=== PATIENT | male | born 1940 | race Caucasian/White ===

== ENCOUNTER 2019-09-15 07:49 | Inpatient (IN) | payer BC ==
[2019-09-14] MEDS: IPRATROPIUM/ALBUTEROL INHALER IH SCH (23:55)
[~2019-09-15] VITALS: Ht 188 cm; Wt 158.3 kg
--- NOTE | 2019-09-15 07:50 | NUR ---
PT BIBRA FROM BOARD AND CARE FOR NOTED O2 DESATURATION X TODAY. PT ARRIVED ON HIGH FLOW O2. TRACH, GOWNED AND PLACED ON MONITOR. AWAITING MD LAYNE.
--- NOTE | 2019-09-15 08:06 | NUR ---
IV LINE STARTED BLOOD DRAWN AND SENT TO LAB.
--- NOTE | 2019-09-15 08:10 | NUR ---
DR GOLDMAN AT BEDSIDE FOR EVAL.
--- NOTE | 2019-09-15 08:44 | NUR ---
Ellyn mclain in [facility] - 09/15/19 at [address] GOLDMAN AT [facility] FOR
[2019-09-15 08:50] LABS: BASOPHILS # (AUTO) 0.1 /CMM (0.0-0.2); BASOPHILS % (AUTO) 0.6 % (0.0-2.0); EOSINOPHILS % (AUTO) 16.3 % (0.0-6.0); HEMATOCRIT 32 % (39-51); HEMOGLOBIN 9.7 g/dL (13.5-17.5); LYMPHOCYTES # (AUTO) 3.4 /CMM (0.8-4.8); LYMPHOCYTES % (AUTO) 26.4 % (20.0-44.0); MEAN CORPUSCULAR HGB CONC 31 g/dl (31.0-36.0); MEAN CORPUSCULAR VOLUME 99 fL (80-96); MONOCYTES % (AUTO) 7.9 % (2.0-12.0); NEUTROPHILS # (AUTO) 6.3 /CMM (1.8-8.9); NEUTROPHILS % (AUTO) 48.8 % (43.0-81.0); PLATELET COUNT (AUTO) 322 /CMM (150-450); RED BLOOD CELL COUNT(AUTO) 3.22 MIL/uL (4.5-6.0); WHITE BLOOD COUNT (AUTO) 12.8 K/uL (4.3-11.0)
[2019-09-15 09:07] LABS: ALANINE AMINOTRANSFERASE 12 U/L (12-78); ALBUMIN 2.5 g/dL (3.4-5.0); ALKALINE PHOSPHATASE 83 U/L (46-116); ASPARTATE AMINOTRANSFERASE 16 U/L (15-37); BILIRUBIN,DIRECT 0.1 mg/dL (0.0-0.2); BILIRUBIN,TOTAL 0.4 mg/dL (0.2-1.0); CALCIUM, SERUM 8.6 mg/dL (8.5-10.1); CARBON DIOXIDE 36 mmol/L (21-32); CHLORIDE 104 mmol/L (98-107); CREATININE 4.9 mg/dL (0.6-1.3); POTASSIUM 4.8 mmol/L (3.5-5.1); SODIUM SERUM 147 mmol/L (136-145); TOTAL PROTEIN, SERUM 7.6 g/dL (6.4-8.2)
[2019-09-15 09:09] LABS: GLUCOSE 36 mg/dL (74-106)
[2019-09-15] MEDS ORDERED: DEXTROSE 50%-WATER 50 ML DISP.SYRIN ONE ×2 (09:11→10:19)
[2019-09-15 09:15] LABS: ABG BASE EXCESS 5.7 mmol/L; ABG OXYGEN SATURATION 96.9 % (92.0-98.5); ABG PCO2 89.1 mmHg (35.0-45.0); ABG PH 7.221 (7.350-7.450); ABG PO2 121.4 mmHg (75.0-100.0); AaDO2 61.3 mmHg; COHb 1.1 % (0.5-1.5); MetHb 0.3 % (0.0-1.5); O2Hb 95.5 % (94.0-97.0); SITE, ABG Right Radial; VENT MODE, BG AC 16 550 40% +8
[2019-09-15 09:16] LABS: UREA NITROGEN, BLOOD 119 mg/dL (7-18)
[2019-09-15] MEDS ORDERED: DEXTROSE 50%-WATER 50 ML DISP.SYRIN IV ONE ×2 (09:30→10:30)
--- NOTE | 2019-09-15 09:31 | NUR ---
RT NOTE RECEIVED PT BEING BAGGED BY PARAMEDICS. PT HAS A PORTEX BIVONA AIRE [address] CU[address]ED[address] CUFF INFLATED. TRACH TUBE MIDLINE AND SECURE. VENTILATOR SETTINGS ENDORSED BY PARAMEDICS AC 16 550 40% +8. ALARMS SET PER PROTOCOL AND AUDIBLE. VENT PLUGGED IN TO RED OUTLET. NO DISTRESS NOTED AT MOMENT. Addendum: 09/15/19 at 0934 by JOAQUIN JIMENEZ RT Amended: Links added.
[2019-09-15 09:35] LABS: BAND % (MANUAL) 1 % (0.0-5.0); EOSINOPHILS % (MANUAL) 17 % (0-4); LYMPHOCYTES % (MANUAL) 17 % (16-48); MONOCYTES % (MANUAL) 8 % (0-11.0); NEUTROPHILS % (MANUAL) 57 (42-76)
--- NOTE | 2019-09-15 10:17 | NUR ---
PANEL ON-CALL PAGED
[2019-09-15 10:32] LABS: APPEARANCE,URINE Slightly Cloudy (CLEAR); BILIRUBIN,URINE Negative (NEGATIVE); BLOOD, URINE Moderate Ery/uL (NEGATIVE); COLOR,URINE Yellow (YELLOW); KETONES,URINE Negative (NEGATIVE); LEUKOCYTE ESTERASE ,URINE Moderate (NEGATIVE); NITRITE, URINE Negative (NEGATIVE); PROTEIN,URINE 100 mg/dl (NEGATIVE); UGLUCOSE Negative (NEGATIVE); UROBILINOGEN,URINE 0.2 EU/dL (0.2)
[2019-09-15 10:33] LABS: BACTERIA,URINE Moderate /HPF (None Seen); SQUAMOUS EPITHELIAL CELL,UR Few /HPF (None Seen)
--- NOTE | 2019-09-15 10:42 | NUR ---
CALLED NURSING SUP FOR [facility] BED.
--- NOTE | 2019-09-15 11:26 | NUR ---
CALLED 3 TIMES TO GIVE REPORT. PLACED ONM LONG HOLD.
[2019-09-15 11:31] LABS: C-REACTIVE PROTEIN 14.1 mg/dL (0.0-0.9)
--- NOTE | 2019-09-15 11:51 | NUR ---
TRANSPORTED TO [facility]. BEDSIDE REPORT GIVEN TO HALLEY BURTON.
[2019-09-15 12:00] VITALS: BP 119/63
--- NOTE | 2019-09-15 12:00 | NUR ---
ELECTRONIC TRAIN CONTROL TECHNICIAN NOTES RECEIVED THE PATIENT FROM ER WITH RIGHT AC IV 18 PATENT. PATIENT IS A/OX 4 WITH DELAYED VERBAL COMMUNICATION DUE TO SOB. NO SOB OR DISCOMFORT NOTED AT THIS TIME. VITALS ARE WNL. PATIENT HAS GTUBE FLUSHED WELL NO RESIDUAL NOTED. WILL FOLLOW UP WITH ORDERS.
[2019-09-15] MEDS ORDERED: IV D5/ 0.9% NACL 1,000 ML IV PRN (12:30)
[2019-09-15] MEDS ORDERED: MAGNESIUM HYDROXIDE 30 ML UDC PO PRN (14:00)
[2019-09-15] MEDS ORDERED: Z GUARD REMEDY 2 OZ OINT TP PRN (14:00)
[2019-09-15] MEDS ORDERED: *INSULIN REGULAR(HUMULIN R)HUM 100 UNIT/ML VIAL SQ PRN (14:00)
[2019-09-15] MEDS ORDERED: DEXTROSE 50%-WATER 50 ML DISP.SYRIN IV PRN (14:00)
[2019-09-15] MEDS ORDERED: ONDANSETRON HCL/PF 4 MG/2 ML VIAL IVP PRN (14:00)
[2019-09-15] MEDS ORDERED: MAG HYDROX/AL HYDROX/SIMETH 30 ML UDC PO PRN (14:00)
--- NOTE | 2019-09-15 14:41 | NUR ---
LAUNDRY AID NOTES CALLED DAUGHTER ANNIE IRAHETA ABOUT PATIENTS ALLERGY AND CODE STATUES. PER DAUGHTER PATIENT HAS NO ALLERGIES AND WANT DNR CODE STATUES.
[2019-09-15] MEDS: HEPARIN SODIUM, PORCINE 5000 UNITS/1 ML VIAL SQ SCH ×3 (15:00→22:13)
[2019-09-15] MEDS: IV D5/0.45 NACL 1,000 ML IV PRN (15:25)
[2019-09-15] MEDS: HYDROXYCHLOROQUINE 200 MG TABLET PO SCH ×2 (15:29→21:26)
--- NOTE | 2019-09-15 15:56 | NUR ---
AIRPORT ENGINEER NOTES HEPARIN NOT ADMINISTRATED PATIENT REFUSED MED STATED THAT HE IS GOING TO BLEED. MEDICATION WAS DRAWN AND WASTED IN MED BIN.
[2019-09-15 16:00] VITALS: BP 121/59
[2019-09-15] MEDS ORDERED: CEFTRIAXONE 1 G in IV D5W 50 ML IV SCH (16:00)
[2019-09-15] MEDS: AZITHROMYCIN 500 MG in IV D5W 250 ML IV SCH (18:03)
[2019-09-15] MEDS: BLOOD SUGAR DIAGNOSTIC 1 EACH STRIP VI SCH ×2 (18:03→21:27)
[2019-09-15] MEDS: IPRATROPIUM/ALBUTEROL INHALER IH SCH (18:06)
--- NOTE | 2019-09-15 19:37 | NUR ---
AUTOMOTIVE ELECTRICAL FITTER NOTES PATIENT IN BED RESTING COMFORTABLY. NO SOB OR DISCOMFORT NOTED. ALL NEEDS ATTENDED. LAST GLUCOSE LEVEL 71 NO INSULIN GIVEN. NO RESIDUAL NOTED AT THE GT SIDE. BED AT THE LOWEST POSITION LOCKED. CALL LIGHT WITHIN REACH. ENDORSED TO SCENIC ARTIST NURSE FOR REESE.
--- NOTE | 2019-09-15 19:45 | NUR ---
RN OPENING NOTES RECEIVED HAND OFF REPORT FROM [facility]. FOUND Pt ASLEEP, RESTING IN BED. Pt IS A/OX4, ABLE TO SPEAK & MOUTH WORDS, & ABLE TO MAKE NEEDS KNOWN. Pt IS A VENT/TRACH Pt; VENT SETTINGS: AC 18, TV 600, FIO2 40%, PEEP 5. PORTEX BIVONA AIRE 9. ON TELE MONITOR, TELE READING: AFIB SB-SR 40-33. DAILEY CATHETER IN PLACE DRAINING WELL. WILL START Pt ON GTF GLUCERNA @30ML/HR. IV ACCESS ON RAC #18G, IVF D5 1/2NS @75ML/HR. SAFETY MEASURES IN PLACE. BED LOW, LOCKED, HOB ELEVATED, SIDE RAILS UP, CALL LIGHT AND BEDSIDE TABLE WITHIN REACH. WILL CONTINUE TO MONITOR Pt's CONDITION AND SAFETY THROUGHOUT THE NIGHT.
[2019-09-15 20:00] VITALS: BP 118/60
--- NOTE | 2019-09-15 20:14 | NUR ---
RT NOTES PT RECEIVED TRACHED ON [facility] VENT ON CHARTED SETTINGS. NO SIGNS OF SOB NOTED. AIRWAY PATENT AND SECURED. PERSONAL PROPERTY APPRAISER DONE. PT SUCTIONED. ALARMS SET AND AUDIBLE. AMBUBAG AT BEDSIDE. VENT PLUGGED TO RED OUTLET. WILL CONT TO MONITOR. Addendum: 09/15/19 at 2138 by EMBER YIN RT Amended: Links added.
[2019-09-15] MEDS ORDERED: CEFEPIME 1 GM in IV NS 0.9% 50 ML IV SCH (20:30)
[2019-09-15] MEDS ORDERED: CEFEPIME 1 GM in IV D5W 50 ML IV SCH (20:30)
[2019-09-15] MEDS ORDERED: FEE PK DOSING 1 MIN EA MC ONE (20:43)
[2019-09-15] MEDS ORDERED: VANCOMYCIN 1.5 GM in IV D5W 500 ML IV SCH (21:00)
[2019-09-15] MEDS: CEFEPIME 2 GM in IV D5W 100 ML IV SCH (21:26)
--- NOTE | 2019-09-15 22:30 | NUR ---
RN NOTES HS ACCUCHECK BG 70. NO INSULIN COVERAGE NEEDED AT THIS TIME.
--- NOTE | 2019-09-15 23:00 | NUR ---
RN NOTES Pt IS ALERT AND ABLE TO ANSWER QUESTIONS. INFORMED Pt THAT HEPARIN IS SCHEDULED Q8HR. Pt ONLY AGREED TO GETTING HEPARIN FOR TONIGHT ONLY, CONCERNED THAT TOO MUCH HEPARIN WILL MAKE HIM BLEED, REFUSED THE 0700 SCHEDULED DOSE. WILL ENDORSE TO DAYSHIFT RN OF Pt's WISHES. PERHAPS RECOMMEND TO CHANGE FREQUENCY TO Q12H INSTEAD OF Q8H.
[2019-09-16] VITALS (8 sets, daily range): BP systolic 98–133; BP diastolic 39–72
[2019-09-16] MEDS: GLUCERNA 1.2 1,000 ML BOTTLE NG PRN (00:02)
--- NOTE | 2019-09-16 03:39 | NUR ---
RN NOTES PER RT REQUEST TO CHANGE IH COMBIVENT RESPIMAT INHALER TO 0730 & 1330 INSTEAD.
[2019-09-16 06:37] LABS: BASOPHILS # (AUTO) 0.1 /CMM (0.0-0.2); BASOPHILS % (AUTO) 1.4 % (0.0-2.0); EOSINOPHILS % (AUTO) 17.5 % (0.0-6.0); HEMATOCRIT 27 % (39-51); HEMOGLOBIN 8.3 g/dL (13.5-17.5); LYMPHOCYTES # (AUTO) 1.3 /CMM (0.8-4.8); LYMPHOCYTES % (AUTO) 13.2 % (20.0-44.0); MEAN CORPUSCULAR HGB CONC 31 g/dl (31.0-36.0); MEAN CORPUSCULAR VOLUME 97 fL (80-96); MONOCYTES % (AUTO) 10.2 % (2.0-12.0); NEUTROPHILS # (AUTO) 5.5 /CMM (1.8-8.9); NEUTROPHILS % (AUTO) 57.7 % (43.0-81.0); PLATELET COUNT (AUTO) 273 /CMM (150-450); RED BLOOD CELL COUNT(AUTO) 2.73 MIL/uL (4.5-6.0); WHITE BLOOD COUNT (AUTO) 9.4 K/uL (4.3-11.0)
--- NOTE | 2019-09-16 06:44 | NUR ---
RN CLOSING NOTES NO SIGNIFICANT CHANGES IN Pt' CONDITION. Pt IS RESTING COMFORTABLY IN BED, WITH NO S/S OF ACUTE DISTRESS OR SOB NOTED DURING THE NIGHT. ALL NEEDS MET AND ATTENDED TO. SAFETY MEASURES IN PLACE. TELE READING AFIB/SR 80s. ON GTF GLUCERNA @30ML/HR. RESIDUAL 5ML. DAILEY CATHETER IN PLACE AND DRAINING WELL. WILL ENDORSE TO DAYSHIFT RN FOR Pt's REESE.
--- NOTE | 2019-09-16 06:47 | NUR ---
RN NOTES Pt REFUSED 0700 HEPARIN DOSE. WANTS TO REDUCE FREQUENCY. Pt IS WORRIED ABOUT BLEEDING TOO MUCH.
[2019-09-16] MEDS: HEPARIN SODIUM, PORCINE 5000 UNITS/1 ML VIAL SQ SCH ×3 (06:49→23:35)
[2019-09-16 07:04] LABS: CREATINE KINASE, TOTAL 38 U/L (39-308)
[2019-09-16] MEDS: BLOOD SUGAR DIAGNOSTIC 1 EACH STRIP VI SCH ×4 (07:04→21:34)
[2019-09-16 07:19] LABS: ALANINE AMINOTRANSFERASE 10 U/L (12-78); ALBUMIN 2.1 g/dL (3.4-5.0); ALKALINE PHOSPHATASE 65 U/L (46-116); ASPARTATE AMINOTRANSFERASE 12 U/L (15-37); BILIRUBIN,DIRECT 0.2 mg/dL (0.0-0.2); BILIRUBIN,TOTAL 0.5 mg/dL (0.2-1.0); CALCIUM, SERUM 8.6 mg/dL (8.5-10.1); CARBON DIOXIDE 34 mmol/L (21-32); CHLORIDE 103 mmol/L (98-107); CREATININE 4.9 mg/dL (0.6-1.3); GLUCOSE 89 mg/dL (74-106); POTASSIUM 4.8 mmol/L (3.5-5.1); SODIUM SERUM 143 mmol/L (136-145); TOTAL PROTEIN, SERUM 6.5 g/dL (6.4-8.2)
[2019-09-16 07:24] LABS: UREA NITROGEN, BLOOD 111 mg/dL (7-18)
[2019-09-16 07:25] LABS: PHOSPHORUS 8.2 mg/dL (2.5-4.9)
--- NOTE | 2019-09-16 07:33 | NUR ---
WOUND CARE CONSULT: REVIEWED ADMISSION DOCUMENTATION WITH MD, FLOOR SANDING MACHINE OPERATOR AND NURSING STAFF. PER ADMISSION PHOTOS, PT PRESENTS WITH SACRAL WOUND WHICH EXTENDS TO BILATERAL BUTTOCKS AND IS AT LEAST PARTIAL THICKNESS, RASH/REDNESS TO PERINEUM AND LOWER BUTTOCKS AND DISCOLORATION WITH DRY SCAB TO LOWER LEG, ALL PRESENT ON ADMISSION. RECOMMENDATIONS MADE FOR WOUND CARE AND SKIN PROTECTION DISCUSSED WITH NURSING STAFF, FLOOR SANDING MACHINE OPERATOR AND MD. WILL SEE PRN. MD IN AGREEMENT WITH PLAN OF CARE.
--- NOTE | 2019-09-16 08:00 | NUR ---
Tele/RN - Assessment Patient is alert and oriented x 4, denies pain, on mechanical vent, settings AC18 TV600 AsV402% PEEP5, tele shows A.Fib. GTF Glucerna at 30 ml/hr, tolerating it well, no residual seen, no further hypoglycemia episode. IVF D5 1/2 NS at 75 ml/hr infusing well on the RAC with no complications. Leija catheter in place for sacrum ext to buttocks wound. Seen by wound nurse with treatment recommendations. Labs reviewed, pending Covid-19, critical results BUN 111 and phos 8.[address] Scott with no new order. All needs attended. Continue Zithromax, Vanco and Cefepime IV. Droplet and contact precautions maintained. Will continue with current plan of care.
[2019-09-16] MEDS: IV D5/0.45 NACL 1,000 ML IV PRN (08:03)
[2019-09-16] MEDS: HYDROXYCHLOROQUINE 200 MG TABLET PO SCH ×2 (08:05→16:33)
[2019-09-16] MEDS: CLOTRIMAZOLE 1% 15 GM TUBE TP SCH ×2 (08:14→16:33)
[2019-09-16] MEDS: IPRATROPIUM/ALBUTEROL INHALER IH SCH ×4 (08:14→23:36)
--- NOTE | 2019-09-16 08:54 | NUR ---
SW Consult SW consult called due to pt placement. SW spoke to window caser, Betina, who stated that the pt is from an [facility] and that the window caser will conduct an assessment with the pt regarding his placement needs.
[2019-09-16 10:02] LABS: ABG BASE EXCESS 6.3 mmol/L; ABG OXYGEN SATURATION 95.1 % (92.0-98.5); ABG PCO2 53.2 mmHg (35.0-45.0); ABG PH 7.399 (7.350-7.450); ABG PO2 83.3 mmHg (75.0-100.0); AaDO2 140.7 mmHg; COHb 0.7 % (0.5-1.5); MetHb 0.3 % (0.0-1.5); O2Hb 94.1 % (94.0-97.0); PEEP,BG 5 cm H2O; SITE, ABG Right Radial; VT, ABG 600 mL
[2019-09-16] MEDS: INSULIN REGULAR, HUMAN 100 UNIT/ML 3 ML VIAL SQ PRN ×2 (12:19→17:28)
[2019-09-16] MEDS: AZITHROMYCIN 500 MG in IV D5W 250 ML IV SCH (16:35)
--- NOTE | 2019-09-16 18:25 | NUR ---
Tele/RN - End of shift summary No significant change in condition seen, remain afebrile, tolerating vent settings well, Covid-19 result was negative. Family updated on patient's condition. Will continue with current medical management.
--- NOTE | 2019-09-16 19:30 | NUR ---
home worker notes, Patient in bed awake, alert and oriented x 4, on mechanical vent, tolerating setting well, A.Fib on tele monitor with hr 80s at this time, gt in placed, GTF Glucerna at 30 ml/hr, tolerating it well, with minimal residual, right ac piv line IVF D5 1/2 NS at 75 ml/hr infusing well and pt tolerated well, Leija catheter in place, patency intact, All needs provided, negative for covid, Will continue to monitor closely.
[2019-09-16] MEDS: MICAFUNGIN SODIUM 100 MG in IV NS 0.9% 100 ML IV SCH (20:53)
[2019-09-16] MEDS: CEFEPIME 2 GM in IV D5W 100 ML IV SCH (23:31)
[2019-09-17] VITALS: BP 93/52
[2019-09-17 04:00] VITALS: BP 118/63
[2019-09-17] MEDS: GLUCERNA 1.2 1,000 ML BOTTLE NG PRN (05:25)
[2019-09-17] MEDS: IPRATROPIUM/ALBUTEROL INHALER IH SCH ×3 (05:49→16:58)
[2019-09-17 06:17] LABS: BASOPHILS # (AUTO) 0.1 /CMM (0.0-0.2); BASOPHILS % (AUTO) 0.8 % (0.0-2.0); EOSINOPHILS % (AUTO) 24.7 % (0.0-6.0); HEMATOCRIT 26 % (39-51); HEMOGLOBIN 8.1 g/dL (13.5-17.5); LYMPHOCYTES # (AUTO) 1.5 /CMM (0.8-4.8); LYMPHOCYTES % (AUTO) 15.4 % (20.0-44.0); MEAN CORPUSCULAR HGB CONC 31 g/dl (31.0-36.0); MEAN CORPUSCULAR VOLUME 96 fL (80-96); MONOCYTES # (AUTO) 0.9 /CMM (0.1-1.30); MONOCYTES % (AUTO) 8.7 % (2.0-12.0); NEUTROPHILS % (AUTO) 50.4 % (43.0-81.0); PLATELET COUNT (AUTO) 246 /CMM (150-450); RED BLOOD CELL COUNT(AUTO) 2.68 MIL/uL (4.5-6.0); WHITE BLOOD COUNT (AUTO) 9.9 K/uL (4.3-11.0)
--- NOTE | 2019-09-17 06:18 | NUR ---
concrete sculptor closing notes, Patient in bed awake, alert and oriented x 4, cont on mechanical vent, tolerating setting well, A.Fib on tele monitor with hr 80s-90s during the night, no significant change in condition, right ac piv line IVF D5 1/2 NS at 75 ml/hr infusing well and pt tolerated well, meds due administered as ordered, Leija catheter in place, patency intact, All needs provided, Will endorse continuity of care to oncoming nurse.
[2019-09-17 06:29] LABS: CALCIUM, SERUM 8.8 mg/dL (8.5-10.1); CARBON DIOXIDE 32 mmol/L (21-32); CHLORIDE 102 mmol/L (98-107); CREATININE 4.8 mg/dL (0.6-1.3); GLUCOSE 122 mg/dL (74-106); POTASSIUM 4.5 mmol/L (3.5-5.1); SODIUM SERUM 143 mmol/L (136-145)
[2019-09-17 06:36] LABS: UREA NITROGEN, BLOOD 106 mg/dL (7-18)
[2019-09-17 07:06] LABS: PTH, INTACT 164 pg/mL (15-65)
[2019-09-17 07:33] LABS: BAND % (MANUAL) 1 % (0.0-5.0); EOSINOPHILS % (MANUAL) 24 % (0-4); LYMPHOCYTES % (MANUAL) 16 % (16-48); MONOCYTES % (MANUAL) 5 % (0-11.0); NEUTROPHILS % (MANUAL) 54 (42-76)
[2019-09-17 08:00] VITALS: BP 115/67
--- NOTE | 2019-09-17 08:00 | NUR ---
Tele/RN - Notes Patient is alert and oriented x 4, denies pain, on mechanical vent, settings AC18 TV600 OdT680% PEEP5, tele shows A.Fib A flutter HR 85. GTF Glucerna at 30 ml/hr, tolerating it well, no residual seen, no hypoglycemia noted. RAC H/L intact with no complications. Leija catheter in place for sacrum ext to buttocks wound. Wound tx done as ordered. Turned every two hrs. Continue Mycamine, Vanco and Maxipime IV. Droplet and contact precautions maintained. Will continue with current plan of care.
[2019-09-17] MEDS ORDERED: DEXTROSE 50%-WATER 50 ML DISP.SYRIN IV PRN (08:30)
[2019-09-17] MEDS: HEPARIN SODIUM, PORCINE 5000 UNITS/1 ML VIAL SQ SCH ×3 (08:32→23:00)
[2019-09-17] MEDS: CLOTRIMAZOLE 1% 15 GM TUBE TP SCH ×2 (09:11→16:58)
[2019-09-17 10:07] LABS: *SPE A/G RATIO 0.6 (0.7-1.7); *SPE ALBUMIN 2.2 g/dL (2.9-4.4); *SPE ALPHA-1-GLOBULIN 0.4 g/dL (0.0-0.4); *SPE ALPHA-2-GLOBULIN 0.8 g/dL (0.4-1.0); *SPE BETA GLOBULIN 0.9 g/dL (0.7-1.3); *SPE GLOBULIN, TOTAL 3.4 g/dL (2.2-3.9); *SPE M-SPIKE Not Observed g/dL (Not Observed); *SPEGAMMA GLOBULIN 1.3 g/dL (0.4-1.8)
[2019-09-17] MEDS: MUPIROCIN OINT 2% 22 GM TUBE SCH ×2 (10:53→22:32)
[2019-09-17] MEDS ORDERED: BUMETANIDE INJ 4 MG in IV D5W 24 ML IV ONE (11:00)
[2019-09-17 12:00] VITALS: BP 110/58
[2019-09-17] MEDS ORDERED: DEXTROSE 50%-WATER 50 ML DISP.SYRIN IV SCH (12:00)
[2019-09-17] MEDS ORDERED: INSULIN REGULAR, HUMAN 100 UNIT/ML 3 ML VIAL SQ SCH (12:00)
[2019-09-17] MEDS: BLOOD SUGAR DIAGNOSTIC 1 EACH STRIP IN SCH ×2 (14:07→16:59)
[2019-09-17] MEDS: INSULIN REGULAR, HUMAN 100 UNIT/ML 3 ML VIAL SQ PRN (14:13)
--- NOTE | 2019-09-17 15:47 | NUR ---
HELD HEPARIN SHOT DUE TO TOMORROW'S US THORACENTESIS OF RT LUNG PROCEDURE.
[2019-09-17 16:00] VITALS: BP_SYST 118; BP_SYST 120; BP_DIAS 65
--- NOTE | 2019-09-17 16:39 | NUR ---
TRANSFERRED PT TO 3RD [facility] TELE ROOM [id number] MEDS AND REPORT TO JOSEPHINE GONZALEZ WITH STABLE V/S.
--- NOTE | 2019-09-17 16:43 | NUR ---
Received patient from [facility]. Patient awake a/o x3 , in stable condition with VS within baseline. PAtient trach Portex (, TV 600, FIO2 40 % PPP 5 %. Patient on G-tube feeding , with no residual , rate 65 ml/hr. Pt on TELE monitor SR with PVC . Present with F/C. Patient oriented to room, call light within reach. Will continue to monitor
--- NOTE | 2019-09-17 18:50 | NUR ---
Patient remains stable. Will endorse to next shift for j carlos
--- NOTE | 2019-09-17 19:15 | NUR ---
LEAD SHIPPER OPENING NOTES PATIENT AWAKE AND RESTING IN BED. VENT DEPENDENT, TOLERATING SETTINGS WELL, SPO2 100%. NO S/S OF ACUTE RESPIRATORY DISTRESS AND NO C/O OF PAIN AT THIS TIME. A/OX4. TELE MONITOR READING NSR, HEART RATE 87. IV PRESENT ON RIGHT ACT, SIZE 18, INTACT & PATENT. DAILEY CATH PRESENT, DRAINING WELL, CLEAR YELLOW URINE PRESENT. SAFETY MEASURES IN PLACE. BED LOCKED, ALARM ON, SIDE RAILS X2, CALL LIGHT WITHIN REACH. WILL CONTINUE TO MONITOR.
[2019-09-17 20:00] VITALS: BP 114/64
[2019-09-17] MEDS: MICAFUNGIN SODIUM 100 MG in IV NS 0.9% 100 ML IV SCH (20:27)
[2019-09-17] MEDS: CEFEPIME 2 GM in IV D5W 100 ML IV SCH (22:27)
[2019-09-18] VITALS (7 sets, daily range): BP systolic 122–135; BP diastolic 63–76
[2019-09-18] MEDS: BLOOD SUGAR DIAGNOSTIC 1 EACH STRIP IN SCH ×4 (00:47→18:28)
[2019-09-18] MEDS: IPRATROPIUM/ALBUTEROL INHALER IH SCH ×4 (06:17→18:30)
[2019-09-18 06:18] LABS: BASOPHILS # (AUTO) 0.1 /CMM (0.0-0.2); BASOPHILS % (AUTO) 1.3 % (0.0-2.0); HEMATOCRIT 28 % (39-51); HEMOGLOBIN 8.9 g/dL (13.5-17.5); LYMPHOCYTES # (AUTO) 1.7 /CMM (0.8-4.8); LYMPHOCYTES % (AUTO) 16.1 % (20.0-44.0); MEAN CORPUSCULAR HGB CONC 32 g/dl (31.0-36.0); MEAN CORPUSCULAR VOLUME 96 fL (80-96); MONOCYTES % (AUTO) 9.2 % (2.0-12.0); NEUTROPHILS # (AUTO) 4.8 /CMM (1.8-8.9); NEUTROPHILS % (AUTO) 46.2 % (43.0-81.0); PLATELET COUNT (AUTO) 257 /CMM (150-450); RED BLOOD CELL COUNT(AUTO) 2.93 MIL/uL (4.5-6.0); WHITE BLOOD COUNT (AUTO) 10.4 K/uL (4.3-11.0)
[2019-09-18] MEDS: HEPARIN SODIUM, PORCINE 5000 UNITS/1 ML VIAL SQ SCH ×3 (07:00→22:08)
[2019-09-18 07:01] LABS: CALCIUM, SERUM 9.1 mg/dL (8.5-10.1); CARBON DIOXIDE 32 mmol/L (21-32); CHLORIDE 104 mmol/L (98-107); CREATININE 4.8 mg/dL (0.6-1.3); GLUCOSE 139 mg/dL (74-106); POTASSIUM 4.5 mmol/L (3.5-5.1); SODIUM SERUM 144 mmol/L (136-145)
[2019-09-18 07:02] LABS: EOSINOPHILS % (AUTO) 27.2 % (0.0-6.0)
[2019-09-18 07:05] LABS: UREA NITROGEN, BLOOD 100 mg/dL (7-18)
--- NOTE | 2019-09-18 07:15 | NUR ---
INSTRUMENT TECH OPENING NOTES RECEIVED PT IN BED AWAKE AT THIS TIME WITH HOB ELEVATED. AOX4. PT ON TRACH/MECHANICAL VENT WITH VENT SETTINGS OF AC18 TV600 FiO2 40% PEEP 5. PT ON TELEMETRY ORACLE R12 DEVELOPER SR 86. GLUCERNA 1.2 G-TUBE FEEDING @ 30 ML/HR WITH NO RESIDUAL NOTED. IV ACCESS ON RAC G# 18, DAILEY CATHETER IN PLACE DRAINING TO GRAVITY CLEAR YELLOW URINE OUTPUT. PER LINE DANCER NURSE TERESE, PT's BLISTER ON BUTTOCKS OPENED UP WHEN TAKING OFF MEPILEX. PICTURES TAKEN AND FILED. CONTACT AND DROPLET PRECAUTIONS IN PLACE, SAFETY PRECAUTIONS IN PLACE. BED IN LOWEST LOCKED POSITION, SIDE RAILS UP X 3, CALL LIGHT WITHIN REACH. WILL CONTINUE TO PROVIDE CARE AND MONITOR.
--- NOTE | 2019-09-18 07:44 | NUR ---
BERRY PICKER CLOSING NOTES PATIENT AWAKE IN BED. TOLERATING VENT SETTINGS WELL. NO S/S OF ACUTE RESPIRATORY DISTRESS AND NO C/O OF PAIN AT THIS TIME. A/OX4. TELE MONITOR READING NSR, HEART RATE 86. IV PRESENT ON RIGHT ACT, SIZE 18, INTACT & PATENT, HEP LOCKED. DAILEY CATH PRESENT, DRAINING WELL, CLEAR YELLOW URINE PRESENT. UPON CLEANING PATIENT AND REMOVING MEPILEX, BLISTER ON SACRUM APPEARED TO BE OPEN; CLEANED SKIN WITH NS AND APPLIED NEW MEPILEX. SAFETY MEASURES IN PLACE. BED LOCKED, ALARM ON, SIDE RAILS X2, CALL LIGHT WITHIN REACH. WILL ENDORSE TO DAY SHIFT NURSE PLAN OF CARE.
--- NOTE | 2019-09-18 09:00 | NUR ---
STARTED DOING US THORACENTESIS OF RT LUNG PROCEDURE WITH STABLE V/S- CONSENT HAS BEEN SIGNED.
[2019-09-18 09:01] LABS: EOSINOPHILS % (MANUAL) 26 % (0-4); LYMPHOCYTES % (MANUAL) 16 % (16-48); MONOCYTES % (MANUAL) 11 % (0-11.0); NEUTROPHILS % (MANUAL) 47 (42-76)
[2019-09-18] MEDS: CLOTRIMAZOLE 1% 15 GM TUBE TP SCH ×2 (09:49→17:14)
[2019-09-18] MEDS: MUPIROCIN OINT 2% 22 GM TUBE SCH ×2 (09:49→20:18)
--- NOTE | 2019-09-18 10:00 | NUR ---
COMPLETED US GUIDED THORACENTESIS OF RT LUNG OBTAINING I LITER BROWNISH PLEURAL OUTPUT AND SENT THE PLEURAL FLUID TO THE PATHOLOGY LAB FOR CYTOLOGY TEST ORDERED.PT TOLERATED PROCEDURE WELL AND REMAINS ALERT AND AWAKE DENYING ANY PAIN OR DISTRESS.WILL CONTINUE TO MONITOR.
[2019-09-18] MEDS ORDERED: TAMS-12 GT (14:30)
[2019-09-18] MEDS ORDERED: IPRA3AMP23 IH (14:30)
[2019-09-18] MEDS ORDERED: DILT-4 GT (14:30)
[2019-09-18] MEDS ORDERED: TIOT18CA3 IH (14:30)
[2019-09-18] MEDS ORDERED: ALLO100T25 GT (14:30)
[2019-09-18] MEDS ORDERED: NUTR250L58 GT (14:30)
[2019-09-18] MEDS ORDERED: MULT-447 GT (14:30)
[2019-09-18] MEDS ORDERED: ACET-868 GT (14:30)
[2019-09-18] MEDS ORDERED: ATOR10TA GT (14:30)
[2019-09-18] MEDS ORDERED: LACT10SO GT (14:30)
[2019-09-18] MEDS ORDERED: PANT40SU2 GT (14:30)
[2019-09-18] MEDS ORDERED: LEVO88TA5 GT (14:30)
[2019-09-18] MEDS ORDERED: QUET200T GT (14:30)
[2019-09-18] MEDS ORDERED: LORA-259 GT (14:30)
[2019-09-18] MEDS ORDERED: BUDE0.5A IH (14:30)
[2019-09-18] MEDS ORDERED: METO25TA20 GT (14:30)
[2019-09-18] MEDS ORDERED: FURO80TA85 GT (14:30)
[2019-09-18] MEDS ORDERED: NYST15OI TP (14:30)
[2019-09-18] MEDS ORDERED: ONDA4TAB5 GT (14:30)
[2019-09-18] MEDS ORDERED: INSU100V7 SQ (14:30)
[2019-09-18] MEDS ORDERED: INSU100V39 SQ (14:30)
[2019-09-18] MEDS ORDERED: BISA10SU11 RC (14:30)
[2019-09-18] MEDS ORDERED: SUCR1ORA15 GT (14:30)
[2019-09-18] MEDS ORDERED: GLIP10TA11 GT (14:30)
[2019-09-18] MEDS ORDERED: DOCU50LI GT (14:30)
[2019-09-18] MEDS ORDERED: FLUC100T GT (14:30)
--- NOTE | 2019-09-18 14:41 | NUR ---
BROWN STOCK WASHER/MED RECON HOME MEDICATION/ALLERGY INFORMATION UPDATED. INFORMATION OBTAINED FROM [facility]. PRIMARY RN AWARE.
--- NOTE | 2019-09-18 15:00 | NUR ---
Notified Dr Isabel to do pt's home meds for the second time.
[2019-09-18] MEDS ORDERED: POLYVINYL ALCOHOL 15 ML BOTTLE EACHEYE PRN (16:30)
[2019-09-18] MEDS: INSULIN REGULAR, HUMAN 100 UNIT/ML 3 ML VIAL SQ PRN (18:53)
--- NOTE | 2019-09-18 18:55 | NUR ---
Called Linda,pharmacist for pt's eyedrops artificial tears 2x and is not available in the unit up to this time.
--- NOTE | 2019-09-18 19:14 | NUR ---
LPN MEDICAL ASSISTANT CLOSING NOTES PT IN BED AWAKE AT THIS TIME WITH HOB ELEVATED. AOX4. PT ON TRACH/MECHANICAL VENT AND TOLERATING VENT SETTINGS WELL. PT ON GLUCERNA 1.2 G-TUBE FEEDING @ 30 ML/HR. PT TOLERATED FEEDING WELL WITH NO RESIDUAL NOTED. IV ACCESS ON RAC G#18 INTACT AND PATENT, DAILEY CATHETER INTACT AND IN PLACE DRAINING TO GRAVITY CLEAR YELLOW URINE OUTPUT. SUCTION PERFORMED NEEDED. PT REMAINED STABLE THROUGHOUT SHIFT. WOUND CARE MANAGEMENT AND SKIN CARE PERFORMED. PT REPOSITIONED Q2HRS, PRN AND PER PROTOCOL. SAFETY PRECAUTIONS IN PLACE. BED IN LOWEST LOCKED POSITION, SIDE RAILS UP X 3, CALL LIGHT WITHIN REACH. WILL CONTINUE TO PROVIDE CARE AND MONITOR.
--- NOTE | 2019-09-18 19:30 | NUR ---
CAFETERIA ATTENDANT OPENING NOTE RECEIVED PATIENT WITH POSITIVE MRSA NARES. PATIENT RECEIVED IN BED. PATIENT ON MECHANICAL VENTILATOR, PORTEX #9, SIMV 18, TV 600, FIO2 40, PEEP 5. IN NO RESPIRATORY DISTRESS AT THIS TIME. DENIES PAIN AT THIS TIME. EXTERNAL TELE MONITOR READS SINUS RHYTHM HR 88. IN NO APPARENT DISTRESS. IV ACCESS IN RAC#18 PATENT AND SALINE LOCKED. DAILEY CATHETER IS PRESENT, DRAINING TO GRAVITY, URINE IS YELLOW. GTUBE IS PRESENT, ASPIRATED 10 ML, FLUSHED WITH 200 ML, NO RESISTANCE, TUBE FEEDING IS RUNNING GLUCERNA 1.2 @30ML/HR. BED IS LOW AND LOCKED, HOB ELEVATED IN HIGH FOWLERS, SIDE RAILS UP X3, BED ALARM ON. CALL LIGHT WITHIN REACH. WILL CONTINUE TO MONITOR.
[2019-09-18] MEDS: MICAFUNGIN SODIUM 100 MG in IV NS 0.9% 100 ML IV SCH (20:15)
[2019-09-18] MEDS: DOXYCYCLINE HYCLATE (100 MG) 100 MG TABLET PO SCH (20:21)
[2019-09-18] MEDS: CEFEPIME 2 GM in IV D5W 100 ML IV SCH (22:07)
[2019-09-18] MEDS: GLUCERNA 1.2 1,000 ML BOTTLE NG PRN (22:08)
[2019-09-19] VITALS: BP 127/72
[2019-09-19] MEDS: IPRATROPIUM/ALBUTEROL INHALER IH SCH ×4 (00:16→17:41)
[2019-09-19] MEDS: BLOOD SUGAR DIAGNOSTIC 1 EACH STRIP IN SCH ×4 (00:16→17:41)
[2019-09-19 04:00] VITALS: BP 130/68
--- NOTE | 2019-09-19 05:49 | NUR ---
PATIENT RECEIVED ON TRACH TO VENT WITH SETTINGS OF AC 18, 600 VT, 40%, +5. SUCTIONED FOR MINIMAL, THIN, WHITE SECRETIONS. AMBU BAG AT BEDSIDE. VENT AND PULSE OXIMETER ALARMS AUDIBLE AND VISIBLE. VENT PLUGGED INTO RED OUTLET. NO DISTRESS/SOB NOTED. Addendum: 09/19/19 at 0549 by LUZ MALONE RT Amended: Links added.
[2019-09-19] MEDS: HEPARIN SODIUM, PORCINE 5000 UNITS/1 ML VIAL SQ SCH ×2 (06:09→21:38)
--- NOTE | 2019-09-19 06:56 | NUR ---
SHAMPOO TECHNICIAN CLOSING NOTE PATIENT WITH POSITIVE MRSA NARES. PATIENT IN BED. PATIENT ON MECHANICAL VENTILATOR, PORTEX #9, SIMV 18, TV 600, FIO2 40, PEEP 5. NO RESP DISTRESS NOTED.NO C/O PAIN. EXTERNAL TELE MONITOR READS SINUS RHYTHM HR 91. NO DISTRESS NOTED. IV ACCESS REMAINS IN RAC#18 PATENT AND SALINE LOCKED. DAILEY CATHETER IS MAINTAINED, DRAINING TO GRAVITY, URINE IS YELLOW. GTUBE IS MAINTAINED, DRESSING CHANGED, RUNNING GLUCERNA 1.2 @30ML/HR. BED REMAINS LOW AND LOCKED, HOB ELEVATED IN HIGH FOWLERS, SIDE RAILS UP X3, BED ALARM ON. CALL LIGHT WITHIN REACH. WILL ENDORSE TO NEXT SHIFT.
--- NOTE | 2019-09-19 07:35 | NUR ---
DRAMATIC AGENT NOTES PATIENT AWAKE IN BED, NO RESPIRATORY DISTRESS, ON VENT WITH PRESCRIBED SETTINGS ORDERED. PATIENT WITH NO C/O PAIN AT THIS TIME. SUPPLY CRIB ATTENDANT ON SR 89. PATIENT'S SKIN WARM TO TOUCH, IV ACCESS SITE INTACT AND PATENT. GT INTACT AND PATENT, GT FEEDING OF GLUCERNA RUNNING AT 30ML/HR. F/C INTACT AND DRAINING YELLOW URINE. PATIENT'S NEEDS ATTENDED, BED ON LOWEST LOCKED POSITION, CALL LIGHT WITHIN REACH. ISOLATION STATUS MAINTAINED, SAFETY PRECAUTIONS IN PLACE. WILL CONTINUE TO MONITOR.
[2019-09-19 07:41] LABS: BASOPHILS # (AUTO) 0.1 /CMM (0.0-0.2); BASOPHILS % (AUTO) 1.1 % (0.0-2.0); HEMATOCRIT 28 % (39-51); HEMOGLOBIN 8.8 g/dL (13.5-17.5); LYMPHOCYTES # (AUTO) 1.4 /CMM (0.8-4.8); LYMPHOCYTES % (AUTO) 15.2 % (20.0-44.0); MEAN CORPUSCULAR HGB CONC 31 g/dl (31.0-36.0); MEAN CORPUSCULAR VOLUME 95 fL (80-96); MONOCYTES # (AUTO) 0.9 /CMM (0.1-1.30); MONOCYTES % (AUTO) 9.5 % (2.0-12.0); NEUTROPHILS # (AUTO) 4.2 /CMM (1.8-8.9); NEUTROPHILS % (AUTO) 45.8 % (43.0-81.0); PLATELET COUNT (AUTO) 257 /CMM (150-450); RED BLOOD CELL COUNT(AUTO) 2.96 MIL/uL (4.5-6.0); WHITE BLOOD COUNT (AUTO) 9.2 K/uL (4.3-11.0)
[2019-09-19 07:49] LABS: EOSINOPHILS % (AUTO) 28.4 % (0.0-6.0)
[2019-09-19 07:53] LABS: CALCIUM, SERUM 9.3 mg/dL (8.5-10.1); CARBON DIOXIDE 29 mmol/L (21-32); CHLORIDE 106 mmol/L (98-107); CREATININE 4.5 mg/dL (0.6-1.3); GLUCOSE 130 mg/dL (74-106); POTASSIUM 4.4 mmol/L (3.5-5.1); SODIUM SERUM 144 mmol/L (136-145)
[2019-09-19 08:00] VITALS: BP 126/70
[2019-09-19 08:33] LABS: UREA NITROGEN, BLOOD 91 mg/dL (7-18)
[2019-09-19 08:36] LABS: EOSINOPHILS % (MANUAL) 25 % (0-4); LYMPHOCYTES % (MANUAL) 10 % (16-48); MONOCYTES % (MANUAL) 10 % (0-11.0); NEUTROPHILS % (MANUAL) 55 (42-76)
[2019-09-19 08:49] VITALS: BP 126/70
[2019-09-19] MEDS: DOXYCYCLINE HYCLATE (100 MG) 100 MG TABLET PO SCH ×2 (08:56→21:37)
[2019-09-19] MEDS: MUPIROCIN OINT 2% 22 GM TUBE SCH ×2 (09:10→22:29)
[2019-09-19] MEDS: CLOTRIMAZOLE 1% 15 GM TUBE TP SCH ×2 (09:11→17:41)
[2019-09-19] MEDS: INSULIN REGULAR, HUMAN 100 UNIT/ML 3 ML VIAL SQ PRN (13:27)
[2019-09-19 16:20] VITALS: BP 130/68
--- NOTE | 2019-09-19 19:15 | NUR ---
RN NOTES: RECEIVED LYING IN BED COMFORTABLY A/0X2-3, ON VENTILATOR PORTEX#9, FiO2-40 PEEP-5, ABLE TO MAKE NEEDS KNOWN,WITH PERIOD OF CONFUSION,ON TELE MONITOR SINUS [id number], ON DAILEY CATH DRAINING INTO YELLOWISH COLORED URINE AT 100 CC LEVEL, WITH FEEDING, ON GLUCERNA 30 ML/HR, NEW IV SITE LEFT WRIST G#22, OLD IV SITE RAC G#18 ON TKO,ON BLOOD SUGAR MONITORING, WHILE DOING ROUNDS COMPLAINED OF EYE DRYNESS, HE HAS TEARS NATURAL IN BED SIDE GIVEN; WARM WASH CLOTH GIVEN TO SPONGE HIS FACE TO FEEL FRESH. NO SIGN OF RESPIRATORY DISTRESS, LOOKS RELAX AND NO PAIN OF DISCOMFORT UPON ENDORSEMENT.FALL, SAFETY AND ASPIRATION PRECAUTION OBSERVED.CALL LIGHT KEPT WITHIN EASY REACH.
--- NOTE | 2019-09-19 19:38 | NUR ---
SUPERVISOR DECORATING NOTES PATIENT AWAKE IN BED, NO RESPIRATORY DISTRESS, ON VENT WITH PRESCRIBED SETTINGS ORDERED. PATIENT WITH NO C/O PAIN AT THIS TIME. NAIL FEEDER ON SR 80. PATIENT'S SKIN WARM TO TOUCH, IV ACCESS SITES INTACT AND PATENT. GT INTACT AND PATENT, GT FEEDING OF GLUCERNA RUNNING AT 30ML/HR. F/C INTACT AND DRAINING YELLOW URINE. PATIENT'S NEEDS ATTENDED, BED ON LOWEST LOCKED POSITION, CALL LIGHT WITHIN REACH. ISOLATION STATUS MAINTAINED, SAFETY PRECAUTIONS IN PLACE. WILL CONTINUE TO MONITOR.
[2019-09-19 20:00] VITALS: BP 143/69
[2019-09-19] MEDS: MICAFUNGIN SODIUM 100 MG in IV NS 0.9% 100 ML IV SCH (20:10)
--- NOTE | 2019-09-19 20:47 | NUR ---
Pt received on current settings with no signs of respiratory distress. Airway is patent and secure with no SOB noted. Vent is plugged into red outlet with alarms on and audible. Suction patient as needed. Will continue to monitor. Addendum: 09/19/19 at 204 by RACHAEL PATEL RT Amended: Links added.
[2019-09-19] MEDS: CEFEPIME 2 GM in IV D5W 100 ML IV SCH (22:29)
[2019-09-20] VITALS: BP 104/67
[2019-09-20] MEDS: BLOOD SUGAR DIAGNOSTIC 1 EACH STRIP IN SCH ×4 (00:40→18:18)
[2019-09-20] MEDS: INSULIN REGULAR, HUMAN 100 UNIT/ML 3 ML VIAL SQ PRN (00:41)
--- NOTE | 2019-09-20 00:42 | NUR ---
RN NOTES: ASLEEP BLOOD SUGAR CHECKED-118, NO INSULIN GIVEN PER SCALE, WILL CONTINUE TO MONITOR FOR SIGN OF HYPER AND HYPOGLYCEMIA.
[2019-09-20] MEDS: GLUCERNA 1.2 1,000 ML BOTTLE NG PRN (00:57)
--- NOTE | 2019-09-20 01:44 | NUR ---
RN NOTES: -AT 0057 PEG FEED CHANGE TO NEW BOTTLE OF GLUCERNA 1.2 AT 30 ML/HR. -TURNING AND REPOSITIONING DONE, SUCTIONED NEEDED. -INHALER USE AND TOLERATED.
[2019-09-20 04:00] VITALS: BP 122/47
--- NOTE | 2019-09-20 04:54 | NUR ---
RN NOTES: MORNING CARE DONE, CLEAN AND CHANGE, DRESSING DONE ON THE BUTTOCKS AREA, NOTED WITH SKIN DESQUAMATION ALL OVER HIS BODY EXPECIALLY ON BLE, FRONTAL AND BACK AREA. TURNING AND REPOSITIONING DONE.
[2019-09-20] MEDS: IPRATROPIUM/ALBUTEROL INHALER IH SCH ×3 (05:11→12:18)
--- NOTE | 2019-09-20 05:48 | NUR ---
RN NOTES: LATEST BLOOD SUGAR-119, NO INSULIN PER SCALE, VERY ALERT, ORAL INHALER GIVEN, ORAL CARE DONE, HE LIKE WHEN HIS MOUTH IS CLEANED VERY COOPERATIVE, ABLE TO VERBALIZE HIS OWN NEEDS. HE REQUEST FOR DERMA CONSULT.KEPT RESTED.
--- NOTE | 2019-09-20 06:33 | NUR ---
RN NOTES: LYING COMFORTABLY IN BED, NO PAIN OR DISCOMFORT, KEPT ON CLOSE VISUAL CHECK, IV CANNULA IN RAC G#18 AND RW GAUGE#20 ON KVO, PATENT AND INTACT.FOR CHEST X-RAY AND LABS THIS MORNING, NO BM, DAILEY CATH DRAINING WELL INTO YELLOWISH COLORED URINE, TOTAL OUTPUT 850, NO BM., STILL ON SR RATE=90, ENDORSED FOR CONTINUITY OF CARE.
--- NOTE | 2019-09-20 07:51 | NUR ---
TRANSMISSION MECHANIC OPENING NOTES RECEIVED PATIENT LYING COMFORTABLY IN BED AWAKE. PATIENT IS BREATHING EVENLY WITH NO S/S OF SOB AT THIS TIME. NO PAIN OR DISCOMFORT VERBALIZED BY PATIENT. IV ACCESS IN RAC G#18 AND RW GAUGE#20 ON KVO, PATENT AND INTACT. DAILEY CATH IN PLACE DRAINING WELL INTO YELLOWISH COLORED URINE. EXTERNAL CARDIAC MONITORING WITH A READING OF SR RATE=90. SAFETY PRECAUTIONS IN PLACE; BED IN LOW POSITION AND LOCKED, RAILS UP X2, CALL LIGHT WITHIN REACH. WILL CONTINUE TO MONITOR PATIENT.
[2019-09-20 08:00] VITALS: BP 127/76
[2019-09-20] MEDS: DOXYCYCLINE HYCLATE (100 MG) 100 MG TABLET PO SCH ×2 (08:31→21:25)
[2019-09-20] MEDS: HEPARIN SODIUM, PORCINE 5000 UNITS/1 ML VIAL SQ SCH ×2 (08:32→21:33)
[2019-09-20] MEDS: CLOTRIMAZOLE 1% 15 GM TUBE TP SCH ×2 (08:34→16:59)
[2019-09-20] MEDS: MUPIROCIN OINT 2% 22 GM TUBE SCH ×2 (08:34→21:26)
[2019-09-20 09:10] LABS: BASOPHILS # (AUTO) 0.1 /CMM (0.0-0.2); BASOPHILS % (AUTO) 1.3 % (0.0-2.0); HEMATOCRIT 30 % (39-51); HEMOGLOBIN 9.5 g/dL (13.5-17.5); LYMPHOCYTES # (AUTO) 1.7 /CMM (0.8-4.8); LYMPHOCYTES % (AUTO) 17.4 % (20.0-44.0); MEAN CORPUSCULAR HGB CONC 31 g/dl (31.0-36.0); MEAN CORPUSCULAR VOLUME 96 fL (80-96); MONOCYTES % (AUTO) 9.7 % (2.0-12.0); NEUTROPHILS # (AUTO) 4.4 /CMM (1.8-8.9); NEUTROPHILS % (AUTO) 44.7 % (43.0-81.0); PLATELET COUNT (AUTO) 250 /CMM (150-450); RED BLOOD CELL COUNT(AUTO) 3.15 MIL/uL (4.5-6.0); WHITE BLOOD COUNT (AUTO) 9.9 K/uL (4.3-11.0)
[2019-09-20 09:11] LABS: EOSINOPHILS % (AUTO) 26.9 % (0.0-6.0)
[2019-09-20 09:36] LABS: CALCIUM, SERUM 9.4 mg/dL (8.5-10.1); CARBON DIOXIDE 28 mmol/L (21-32); CHLORIDE 107 mmol/L (98-107); CREATININE 4.2 mg/dL (0.6-1.3); GLUCOSE 115 mg/dL (74-106); POTASSIUM 4.5 mmol/L (3.5-5.1); SODIUM SERUM 146 mmol/L (136-145)
[2019-09-20 09:39] LABS: UREA NITROGEN, BLOOD 89 mg/dL (7-18)
[2019-09-20 10:20] LABS: EOSINOPHILS % (MANUAL) 24 % (0-4); LYMPHOCYTES % (MANUAL) 19 % (16-48); MONOCYTES % (MANUAL) 10 % (0-11.0); NEUTROPHILS % (MANUAL) 47 (42-76)
[2019-09-20] MEDS ORDERED: METOPROLOL TARTRATE 25 MG TABLET GT PRN (10:30)
[2019-09-20] MEDS ORDERED: Medication Not On Formulary EA (Ondansetron Hcl (Zofran) 4 MG) GT PRN (10:30)
[2019-09-20] MEDS ORDERED: BISACODYL SUPP (10 MG) 10 MG/SUPP.RECT SUPP.RECT RC PRN (10:30)
[2019-09-20] MEDS ORDERED: LACTULOSE 10 G/15 ML UDC (PYXIS) GT PRN (11:00)
[2019-09-20] MEDS ORDERED: IPRATROPIUM NEB FS 0.5 MG/2.5 ML AMPUL.NEB NEB PRN (11:00)
[2019-09-20 12:00] VITALS: BP 110/71
[2019-09-20] MEDS: NYSTATIN OINT 100000 UNIT/G 15 GM TUBE TP SCH ×2 (13:19→17:01)
[2019-09-20] MEDS: IPRATROPIUM NEB FS 0.5 MG/2.5 ML AMPUL.NEB NEB SCH ×2 (13:30→20:21)
[2019-09-20 16:00] VITALS: BP 123/66
[2019-09-20] MEDS: DOCUSATE SODIUM LIQ 100 MG/10 ML UDC GT SCH (16:58)
[2019-09-20] MEDS ORDERED: PANTOPRAZOLE 40 MG/PACK PACK GT SCH (17:00)
--- NOTE | 2019-09-20 18:59 | NUR ---
TUB ATTENDANT CLOSING NOTES PATIENT CURRENTLY LYING COMFORTABLY IN BED AWAKE AND WATCHING TV. PATIENT IS BREATHING EVENLY WITH NO S/S OF SOB AT THIS TIME. NO PAIN OR DISCOMFORT VERBALIZED BY PATIENT. IV ACCESS IN RAC G#18 AND RW GAUGE#20 PATENT AND INTACT. DAILEY CATH IN PLACE DRAINING WELL INTO YELLOWISH COLORED URINE. EXTERNAL CARDIAC MONITORING WITH A READING OF SR RATE=90. PATIENT CLEAN AND CARED FOR THROUGHOUT THE DAY. ALL NEEDS ATTENDED TOO. SAFETY PRECAUTIONS IN PLACE; BED IN LOW POSITION AND LOCKED, RAILS UP X2, CALL LIGHT WITHIN REACH. WILL ENDORSE TO MULTIMEDIA AUTHORING SPECIALIST NURSE.
--- NOTE | 2019-09-20 19:49 | NUR ---
LIP CUTTER OPENING NOTES RECEIVED PATIENT LYING COMFORTABLY IN BED AWAKE. NO SIGNS OF ACUTE RESPIRATORY DISTRESS NOTED, PATIENT IS BREATHING EVENLY WITH NO S/S OF SOB AT THIS TIME. VENT SETTINGS TOLERATING WELL, DENIES PAIN OR DISCOMFORT. IV ACCESS IN RAC G#18 PATENT AND INTACT. DAIELY CATH IN PLACE DRAINING WELL INTO YELLOW COLORED URINE. EXTERNAL CARDIAC MONITORING WITH A READING OF SR RATE=90s TO. SAFETY PRECAUTIONS IN PLACE; BED IN LOW POSITION AND LOCKED, RAILS UP X2, CALL LIGHT WITHIN REACH. WILL CONTINUE TO MONITOR ACCORDINGLY.
[2019-09-20 20:00] VITALS: BP 138/76
[2019-09-20] MEDS: BUDESONIDE RESPULE INH 0.5 MG/2 ML AMPUL.NEB IH SCH (20:21)
[2019-09-20] MEDS: MICAFUNGIN SODIUM 100 MG in IV NS 0.9% 100 ML IV SCH (21:00)
[2019-09-20] MEDS: ATORVASTATIN 10 MG TABLET GT SCH (21:26)
[2019-09-20] MEDS: CEFEPIME 2 GM in IV D5W 100 ML IV SCH (22:39)
[2019-09-20] MEDS: QUETIAPINE FUMARATE 100 MG TABLET GT SCH (22:39)
[2019-09-21] VITALS: BP 129/69
[2019-09-21] MEDS: BLOOD SUGAR DIAGNOSTIC 1 EACH STRIP IN SCH ×4 (01:51→18:17)
[2019-09-21] MEDS: IPRATROPIUM NEB FS 0.5 MG/2.5 ML AMPUL.NEB NEB SCH ×4 (01:54→19:46)
[2019-09-21 04:00] VITALS: BP 126/79
[2019-09-21] MEDS: GLUCERNA 1.2 1,000 ML BOTTLE NG PRN (04:07)
--- NOTE | 2019-09-21 06:19 | NUR ---
RN NOTES ALL NEEDS ATTENDED AND MET, ABLE TO REST AND SLEPT AT INTERVALS. KEPT CLEAN WARM DRY AND COMFORTABLE. USES URINAL. DENIES ANY PAIN AN DISCOMFORT AT THIS TIME, SAFETY MEASURES IN PLACE. WILL ENDORSE TO AM NURSE FOR CONTINUITY OF CARE.
[2019-09-21] MEDS: BUDESONIDE RESPULE INH 0.5 MG/2 ML AMPUL.NEB IH SCH ×2 (07:36→19:47)
[2019-09-21 08:00] VITALS: BP 129/72
--- NOTE | 2019-09-21 08:00 | NUR ---
BODY JOINER OPENING NOTES Received Patient awake and resting in bed. A/O x 3. VS stable with no acute distress. Breathing even and unlabored on trachea and vent with no respiratory distress. Denies pain. No signs and symptoms of pain. Telemonitor in place and patent reading SR with HR-90. Leija Cath in place and patent with clear yellow output noted. GTube in place and patent with Glucerna 1.2 infusing at 30ml/hr. Safety precautions in place. Bed locked and set to lowest position with side rails x 3 up. All needs rendered at this time. Call light within reach. Will continue to monitor.
[2019-09-21 08:22] LABS: BASOPHILS # (AUTO) 0.1 /CMM (0.0-0.2); BASOPHILS % (AUTO) 1.7 % (0.0-2.0); HEMATOCRIT 29 % (39-51); HEMOGLOBIN 8.9 g/dL (13.5-17.5); LYMPHOCYTES # (AUTO) 1.7 /CMM (0.8-4.8); LYMPHOCYTES % (AUTO) 20.8 % (20.0-44.0); MEAN CORPUSCULAR HGB CONC 31 g/dl (31.0-36.0); MEAN CORPUSCULAR VOLUME 96 fL (80-96); MONOCYTES # (AUTO) 0.8 /CMM (0.1-1.30); NEUTROPHILS # (AUTO) 3.2 /CMM (1.8-8.9); NEUTROPHILS % (AUTO) 40.2 % (43.0-81.0); PLATELET COUNT (AUTO) 233 /CMM (150-450); RED BLOOD CELL COUNT(AUTO) 2.99 MIL/uL (4.5-6.0)
[2019-09-21 08:24] LABS: EOSINOPHILS % (AUTO) 27.3 % (0.0-6.0)
[2019-09-21 08:34] LABS: CALCIUM, SERUM 9.1 mg/dL (8.5-10.1); CARBON DIOXIDE 30 mmol/L (21-32); CHLORIDE 110 mmol/L (98-107); GLUCOSE 103 mg/dL (74-106); POTASSIUM 4.4 mmol/L (3.5-5.1); SODIUM SERUM 148 mmol/L (136-145)
[2019-09-21 08:41] LABS: UREA NITROGEN, BLOOD 81 mg/dL (7-18)
[2019-09-21 08:56] LABS: BAND % (MANUAL) 1 % (0.0-5.0); BASOPHILS % (MANUAL) 1 % (0.0-2.0); EOSINOPHILS % (MANUAL) 33 % (0-4); LYMPHOCYTES % (MANUAL) 22 % (16-48); MONOCYTES % (MANUAL) 5 % (0-11.0); NEUTROPHILS % (MANUAL) 38 (42-76)
[2019-09-21] MEDS ORDERED: ALLOPURINOL 100 MG TABLET GT SCH (09:00)
[2019-09-21] MEDS: LEVOTHYROXINE SODIUM 88 MCG TABLET GT SCH (09:17)
[2019-09-21] MEDS: DOCUSATE SODIUM LIQ 100 MG/10 ML UDC GT SCH ×2 (09:17→18:00)
[2019-09-21] MEDS: SUCRALFATE 1 G/10 ML UDC GT SCH (09:17)
[2019-09-21] MEDS: MULTIVIT W/MINERALS 1 TAB TABLET GT SCH (09:18)
[2019-09-21] MEDS: FUROSEMIDE 80 MG TABLET GT SCH (09:18)
[2019-09-21] MEDS: DILTIAZEM HCL CD 240 MG PO SCH (09:19)
[2019-09-21] MEDS: HEPARIN SODIUM, PORCINE 5000 UNITS/1 ML VIAL SQ SCH ×2 (09:21→20:59)
[2019-09-21] MEDS: DOXYCYCLINE HYCLATE (100 MG) 100 MG TABLET PO SCH ×2 (09:24→21:02)
[2019-09-21] MEDS: CLOTRIMAZOLE 1% 15 GM TUBE TP SCH ×2 (09:31→18:07)
[2019-09-21] MEDS: NYSTATIN OINT 100000 UNIT/G 15 GM TUBE TP SCH ×3 (09:32→18:07)
[2019-09-21] MEDS: MUPIROCIN OINT 2% 22 GM TUBE SCH ×2 (09:32→21:26)
[2019-09-21 16:00] VITALS: BP 129/74
[2019-09-21] MEDS: IPRATROPIUM/ALBUTEROL INHALER IH SCH (18:17)
--- NOTE | 2019-09-21 19:41 | NUR ---
MEDICAL ASSOCIATE CLOSING NOTES Patient awake and resting in bed. A/O x 3. VS stable with no acute distress. Breathing even and unlabored on trachea and vent with no respiratory distress. Denies pain. No signs and symptoms of pain. Telemonitor readings unclear. Will endorse oncoming shift to follow up and monitor. Leija Cath in place and patent with clear yellow output noted. GTube in place and patent with Glucerna 1.2 infusing at 30ml/hr. Safety precautions in place. Bed locked and set to lowest position with side rails x 3 up. All needs rendered at this time. Call light within reach. Will endorse plan of care to oncoming shift.
[2019-09-21 20:35] VITALS: BP 127/56
[2019-09-21] MEDS: QUETIAPINE FUMARATE 100 MG TABLET GT SCH (21:00)
[2019-09-21] MEDS: ATORVASTATIN 10 MG TABLET GT SCH (21:01)
[2019-09-21] MEDS: MICAFUNGIN SODIUM 100 MG in IV NS 0.9% 100 ML IV SCH (21:02)
[2019-09-21] MEDS: TAMSULOSIN 0.4 MG CAP.SR.24H GT SCH (21:07)
[2019-09-21] MEDS: CEFEPIME 2 GM in IV D5W 100 ML IV SCH (22:33)
[2019-09-22 00:34] VITALS: BP 97/56
[2019-09-22] MEDS: INSULIN REGULAR, HUMAN 100 UNIT/ML 3 ML VIAL SQ PRN ×2 (00:41→17:54)
[2019-09-22] MEDS: IPRATROPIUM/ALBUTEROL INHALER IH SCH ×4 (00:43→17:56)
[2019-09-22] MEDS: BLOOD SUGAR DIAGNOSTIC 1 EACH STRIP IN SCH ×4 (00:43→17:58)
[2019-09-22] MEDS: IPRATROPIUM NEB FS 0.5 MG/2.5 ML AMPUL.NEB NEB SCH ×4 (01:38→19:27)
--- NOTE | 2019-09-22 05:47 | NUR ---
PATIENT RECEIVED ON TRACH TO VENT WITH SETTINGS OF AC 18, 600 VT, 40%, +5. SUCTIONED FOR MINIMAL, THICK, YELLOW SECRETIONS. GIVEN IN-LINE TREATMENTS WITH NO ADVERSE REACTIONS. AMBU BAG AT BEDSIDE. VENT AND PULSE OXIMETER ALARMS AUDIBLE AND VISIBLE. VENT PLUGGED INTO RED OUTLET. Addendum: 09/22/19 at 0549 by LUZ MALONE RT Amended: Links added.
[2019-09-22] MEDS: GLUCERNA 1.2 1,000 ML BOTTLE NG PRN (06:46)
--- NOTE | 2019-09-22 07:00 | NUR ---
HELP DESK SPECIALIST CLOSING NOTES Patient resting in bed. A/O x 3. pt in no acute distress. Breathing even and unlabored on trachea and vent with no respiratory distress saturation at 96%. Denies pain. Telemonitor rsr in 80's. Will endorse oncoming shift to follow up and monitor. Leija Cath in place and patent with clear yellow output noted. GTube in place and patent with Glucerna 1.2 infusing at 30ml/hr. Safety precautions in place. Bed locked and set to lowest position with side rails x 3 up. patient bathed this am. dressing change performed and pictures taken. . Call light left within reach. Will endorse plan of care to oncoming shift.
[2019-09-22] MEDS: LEVOTHYROXINE SODIUM 88 MCG TABLET GT SCH (07:30)
--- NOTE | 2019-09-22 07:33 | NUR ---
TELE/RN OPENING NOTES RECEIVED PATIENT SLEEPING ON BED. bed. PATIENT IS ALERT AND ORIENTED X3. BREATHING IS EVEN AND UNLABORED WITH TRACH AND VENT IN PLACED WITH O RESPIRATORY DISTRESS NOTED. NO S/S OF PAIN NOTED. TELE MONITOR IN PLACED AT THE READING OF AFIB 65-66 WITH PVC. DAILEY CATHETER IN PLACE DRAINING WELL. GTUBE IN PLACED PATENT AND INTACT WITH GLUCERNA 1.2 AT 30ML/HR. BED IN LOWEST POSITION AND LOCKED. SIDE RAILS UP X2. CALL LIGHT WITH IN REACH. WILL CONTINUE TO MONITOR.
[2019-09-22] MEDS: BUDESONIDE RESPULE INH 0.5 MG/2 ML AMPUL.NEB IH SCH ×2 (08:04→19:27)
[2019-09-22] MEDS: SUCRALFATE 1 G/10 ML UDC GT SCH (09:09)
[2019-09-22] MEDS: FUROSEMIDE 80 MG TABLET GT SCH (09:09)
[2019-09-22] MEDS: MULTIVIT W/MINERALS 1 TAB TABLET GT SCH (09:09)
[2019-09-22] MEDS: DILTIAZEM HCL CD 240 MG PO SCH (09:09)
[2019-09-22] MEDS: DOXYCYCLINE HYCLATE (100 MG) 100 MG TABLET PO SCH (09:09)
[2019-09-22] MEDS: DOCUSATE SODIUM LIQ 100 MG/10 ML UDC GT SCH ×2 (09:09→16:34)
[2019-09-22] MEDS: HEPARIN SODIUM, PORCINE 5000 UNITS/1 ML VIAL SQ SCH ×3 (09:12→21:21)
[2019-09-22] MEDS: NYSTATIN OINT 100000 UNIT/G 15 GM TUBE TP SCH ×3 (09:13→16:51)
[2019-09-22] MEDS: MUPIROCIN OINT 2% 22 GM TUBE SCH ×2 (09:14→21:39)
[2019-09-22] MEDS: CLOTRIMAZOLE 1% 15 GM TUBE TP SCH ×2 (09:14→16:51)
--- NOTE | 2019-09-22 11:24 | NUR ---
TELE/RN NOTES BS 129MG/DL 0 COVERAGE
--- NOTE | 2019-09-22 15:00 | NUR ---
TELE/RN NOTES MARY ELLEN WILDLIFE CONTROL OPERATOR IS AWARE THAT PATIENT WANT TO GO TO A DIFFERENT FACILITY, PER MARY ELLEN SHE WILL CALL THE FAMILY.
--- NOTE | 2019-09-22 17:59 | NUR ---
TELE/RN NOTES BS 134MG/DL INSULIN 2 UNIT ADMINISTERED
--- NOTE | 2019-09-22 18:47 | NUR ---
TELE/RN CLOSING NOTES PATIENT LYING ON BED COMFORTABLY. PATIENT IS ALERT AND ORIENTED X3. BREATHING IS EVEN AND UNLABORED WITH TRACH AND VENT IN PLACED WITH O RESPIRATORY DISTRESS NOTED. NO S/S OF PAIN NOTED. TELE MONITOR IN PLACED AT THE READING OF AFIB 87-89. DAILEY CATHETER IN PLACE AND DRAINING WELL. GTUBE IN PLACED PATENT AND INTACT WITH GLUCERNA 1.2 AT 30ML/HR. SEEN AND EXAMINED BY MD WITH NO NEW ORDER NOTED. CHECKED AND TURN PATIENT EVERY 2 HOUR. KEPT PATIENT CLEAN AND DRY THE WHOLE TIME. BED IN LOWEST POSITION AND LOCKED. SIDE RAILS UP X2. CALL LIGHT WITH IN REACH. WILL ENDORSED TO MARKER HAND FOR REESE.
[2019-09-22 19:30] VITALS: BP 133/67
--- NOTE | 2019-09-22 19:35 | NUR ---
MS RN NOTES PATIENT IN BED, AWAKE, ALERT AND ORIENTED X 3. BREATHING EVEN AND UNLABORED ON MV PORTEX #9 TV 600, FIO2 40%, SIMV 18 AND PEEP 15. SHOWS NO SIGNS OF ACUTE RESPIRATORY DISTRESS, NO ACUTE PAIN. TELE MONITOR AFIB CONTROLLED 76. DAILEY CATHETER IS RUNNING CLEAR YELLOW AND INTACT. IV ON L WRIST SL ITS CLEAN DRY AND INTACT. SHOWS NO SIGNS OF INFILTRATION, NO REDNESS. GTUBE RUNNING GLUCERNA 1.2 AT 30ML/HR, IN PLACE AND INTACT, NO RESIDUALS. SAFETY PRECAUTIONS IN PLACE. BED IN LOWEST POSITION, LOCKED, AND CALL LIGHT KEPT WITHIN REACH. WILL CONTINUE TO MONITOR.
[2019-09-22 20:00] VITALS: BP 133/67
--- NOTE | 2019-09-22 21:00 | NUR ---
PILOT SAFETY INSPECTOR NOTES PATIENT REFUSED 2100 HEPARIN. PT DID NOT WANT IT STATING HE HAS ALREADY RECEIVED SO MANY DOSES. EDUCATED PT AND PT REFUSED. WILL CONTINUE TO MONITOR.
[2019-09-22] MEDS: TAMSULOSIN 0.4 MG CAP.SR.24H GT SCH (21:20)
[2019-09-22] MEDS: QUETIAPINE FUMARATE 100 MG TABLET GT SCH (21:20)
[2019-09-22] MEDS: ATORVASTATIN 10 MG TABLET GT SCH (21:20)
--- NOTE | 2019-09-23 | NUR ---
STEREOTYPE CASTER NOTES SPOKE TO RESPIRATORY THERAPIST, THE INHALER DOES NOT WORK FOR THE PATIENT SINCE HIS HAS A TRACH. WILL F/U WITH PHARMACY IN AM.
[2019-09-23 00:26] VITALS: BP 102/60
[2019-09-23] MEDS: BLOOD SUGAR DIAGNOSTIC 1 EACH STRIP IN SCH ×5 (00:45→23:47)
[2019-09-23] MEDS: IPRATROPIUM/ALBUTEROL INHALER IH SCH ×5 (00:49→18:21)
[2019-09-23] MEDS: IPRATROPIUM NEB FS 0.5 MG/2.5 ML AMPUL.NEB NEB SCH ×4 (01:30→20:12)
[2019-09-23] MEDS: ACETAMINOPHEN 325 MG TABLET PO PRN (03:50)
[2019-09-23 04:45] VITALS: BP 110/53
--- NOTE | 2019-09-23 06:44 | NUR ---
STREET LIGHT SERVICER SUPERVISOR NOTES PATIENT IN BED, WITH INTERMITTENT SLEEP, ALERT AND ORIENTED X 3. BREATHING EVEN AND UNLABORED ON MV PORTEX #9 TV 600, FIO2 40%, SIMV 18 AND PEEP 15. SHOWS NO SIGNS OF ACUTE RESPIRATORY DISTRESS, NO ACUTE PAIN. TELE MONITOR AFIB CONTROLLED 76. DAILEY CATHETER IS RUNNING CLEAR YELLOW AND INTACT. IV ON L WRIST SL ITS CLEAN DRY AND INTACT. SHOWS NO SIGNS OF INFILTRATION, NO REDNESS. GTUBE RUNNING GLUCERNA 1.2 AT 30ML/HR, IN PLACE AND INTACT, NO RESIDUALS. SAFETY PRECAUTIONS IN PLACE. ALL DUE MEDICATIONS. GIVEN BED IN LOWEST POSITION, LOCKED, AND CALL LIGHT KEPT WITHIN REACH. WILL ENDORSE TO ONCOMING.
--- NOTE | 2019-09-23 07:30 | NUR ---
PLANT CYTOLOGIST NOTES PT IN BED, ASLEEP, RESPIRATIONS NORMAL AND NOT LABORED, NO SIGN OF PAIN OR ANY DISCOMFORT, GT FEEDING INFUSING WELL, F/C INTACT AND DRAINING WELL WITH CLEAR, YELLOW URINE, REPOSITIONED FOR COMFORT, NEEDS ATTENDED.
[2019-09-23] MEDS: BUDESONIDE RESPULE INH 0.5 MG/2 ML AMPUL.NEB IH SCH ×2 (07:45→19:30)
[2019-09-23 08:00] VITALS: BP 113/58
[2019-09-23] MEDS: SUCRALFATE 1 G/10 ML UDC GT SCH (08:47)
[2019-09-23] MEDS: LEVOTHYROXINE SODIUM 88 MCG TABLET GT SCH (08:47)
[2019-09-23] MEDS: FUROSEMIDE 80 MG TABLET GT SCH (08:47)
[2019-09-23] MEDS: MULTIVIT W/MINERALS 1 TAB TABLET GT SCH (08:47)
[2019-09-23] MEDS: DOCUSATE SODIUM LIQ 100 MG/10 ML UDC GT SCH ×2 (08:47→16:25)
[2019-09-23] MEDS: HEPARIN SODIUM, PORCINE 5000 UNITS/1 ML VIAL SQ SCH ×2 (08:48→21:28)
[2019-09-23] MEDS: MUPIROCIN OINT 2% 22 GM TUBE SCH ×2 (08:50→21:47)
[2019-09-23] MEDS: NYSTATIN OINT 100000 UNIT/G 15 GM TUBE TP SCH ×3 (08:50→16:27)
[2019-09-23] MEDS: DILTIAZEM HCL CD 240 MG PO SCH (08:58)
[2019-09-23] MEDS: CLOTRIMAZOLE 1% 15 GM TUBE TP SCH ×2 (11:18→16:27)
--- NOTE | 2019-09-23 12:00 | NUR ---
BREATHING TX GIVEN VIA INLINE HHN
[2019-09-23] MEDS: INSULIN REGULAR, HUMAN 100 UNIT/ML 3 ML VIAL SQ PRN ×2 (12:14→23:50)
--- NOTE | 2019-09-23 13:00 | NUR ---
BUSPERSON NOTES PT IN BED, ASLEEP, EASY TO AROUSE, ALERT AND ABLE TO MAKE NEEDS KNOWN, NO SOB, NO COMPLAINT OF PAIN, TURNED AND REPOSITIONED Q2 HOURS, F/C DRAINING WELL, CALL LIGHT WITHIN REACH, NEEDS ATTENDED.
[2019-09-23 16:00] VITALS: BP 125/74
--- NOTE | 2019-09-23 18:39 | NUR ---
TRIAL PARALEGAL NOTES PT IN BED, RESTING, ABLE TO MAKE NEEDS KNOWN, NO SOB, KEPT HOB ELEVATED, GT FEEDING INFUSING WELL, TOLERATES WELL, CALL LIGHT WITHIN REACH, PM CARE PROVIDED, ASSISTED IN TURNING AND REPOSITIONING, ALL NEEDS ATTENDED.
[2019-09-23 19:30] VITALS: BP 138/76
--- NOTE | 2019-09-23 19:45 | NUR ---
MS RN NOTES PATIENT IN BED, AWAKE, ALERT AND ORIENTED X 3. BREATHING EVEN AND UNLABORED ON MV PORTEX #9 TV 600, FIO2 40%, SIMV 18 AND PEEP 15. SHOWS NO SIGNS OF ACUTE RESPIRATORY DISTRESS, NO ACUTE PAIN. TELE MONITOR AFIB 110. DAILEY CATHETER IS RUNNING CLEAR YELLOW AND INTACT. IV ON L WRIST SL ITS CLEAN DRY AND INTACT. SHOWS NO SIGNS OF INFILTRATION, NO REDNESS. GTUBE RUNNING GLUCERNA 1.2 AT 30ML/HR, IN PLACE AND INTACT, NO RESIDUALS. SAFETY PRECAUTIONS IN PLACE. BED IN LOWEST POSITION, LOCKED, AND CALL LIGHT KEPT WITHIN REACH. WILL CONTINUE TO MONITOR.
[2019-09-23 20:08] VITALS: BP 138/76
[2019-09-23] MEDS: TAMSULOSIN 0.4 MG CAP.SR.24H GT SCH (21:29)
[2019-09-23] MEDS: ATORVASTATIN 10 MG TABLET GT SCH (21:29)
[2019-09-23] MEDS: QUETIAPINE FUMARATE 100 MG TABLET GT SCH (21:29)
--- NOTE | 2019-09-24 | NUR ---
CARDIAC MONITOR NOTES THE INHALER DOES NOT WORK FOR THE PATIENT HE HAS A TRACH. WILL F/U WITH DOCTOR
[2019-09-24 00:41] VITALS: BP 123/63
[2019-09-24] MEDS: IPRATROPIUM NEB FS 0.5 MG/2.5 ML AMPUL.NEB NEB SCH ×4 (01:30→19:37)
[2019-09-24] MEDS: GLUCERNA 1.2 1,000 ML BOTTLE NG PRN (02:42)
[2019-09-24 04:00] VITALS: BP 130/60
[2019-09-24] MEDS: BLOOD SUGAR DIAGNOSTIC 1 EACH STRIP IN SCH ×3 (05:30→18:38)
[2019-09-24] MEDS: ACETAMINOPHEN 325 MG TABLET PO PRN (05:30)
[2019-09-24] MEDS: IPRATROPIUM/ALBUTEROL INHALER IH SCH ×4 (06:00→18:00)
--- NOTE | 2019-09-24 06:11 | NUR ---
BILLING AND INSURANCE COORDINATOR NOTES INFORMED THAT INHALER DOES NOT WORK FOR THE PATIENT SINCE HE HAS A TRACH.
--- NOTE | 2019-09-24 06:55 | NUR ---
FOREST ECONOMIST NOTES PATIENT IN BED, WITH INTERMITTENT SLEEP, ALERT AND ORIENTED X 3. BREATHING EVEN AND UNLABORED ON MV PORTEX #9 TV 600, FIO2 40%, SIMV 18 AND PEEP 15. SHOWS NO SIGNS OF ACUTE RESPIRATORY DISTRESS, NO ACUTE PAIN. TELE MONITOR AFIB CONTROLLED . DAILEY CATHETER IS RUNNING CLEAR YELLOW AND INTACT. IV ON L WRIST SL ITS CLEAN DRY AND INTACT. SHOWS NO SIGNS OF INFILTRATION, NO REDNESS. GTUBE RUNNING GLUCERNA 1.2 AT 30ML/HR, IN PLACE AND INTACT, NO RESIDUALS. SAFETY PRECAUTIONS IN PLACE. ALL DUE MEDICATIONS. GIVEN BED IN LOWEST POSITION, LOCKED, AND CALL LIGHT KEPT WITHIN REACH. WILL ENDORSE TO ONCOMING.
--- NOTE | 2019-09-24 07:15 | NUR ---
ACTION INSTALLER NOTES PATIENT IN BED ALERT AND ORIENTED X 3. BREATHING EVEN AND UNLABORED. ON VENTILATOR SET ON ORDERED SETTING. NO SIGNS OF ACUTE RESPIRATORY DISTRESS, NO ACUTE PAIN. DAILEY CATHETER INTACT, DRAINING WELL. IV ACCESS PATENT AND INTACT, NO REDNESS OR SWELLING NOTED. GTUBE RUNNING GLUCERNA 1.2 AT 30ML/HR, IN PLACE AND INTACT, NO RESIDUALS, TOLERATING WELL. SAFETY MEASURES IN PLACE. CALL LIGHT WITHIN REACH. WILL CONTINUE TO MONITOR ACCORDINGLY.
[2019-09-24 07:27] LABS: CALCIUM, SERUM 9.4 mg/dL (8.5-10.1); CARBON DIOXIDE 28 mmol/L (21-32); CHLORIDE 108 mmol/L (98-107); GLUCOSE 118 mg/dL (74-106); POTASSIUM 4.2 mmol/L (3.5-5.1); SODIUM SERUM 147 mmol/L (136-145); UREA NITROGEN, BLOOD 76 mg/dL (7-18)
[2019-09-24 07:30] LABS: BASOPHILS # (AUTO) 0.1 /CMM (0.0-0.2); BASOPHILS % (AUTO) 1.2 % (0.0-2.0); EOSINOPHILS % (AUTO) 16.2 % (0.0-6.0); HEMATOCRIT 29 % (39-51); LYMPHOCYTES # (AUTO) 2.4 /CMM (0.8-4.8); LYMPHOCYTES % (AUTO) 22.2 % (20.0-44.0); MEAN CORPUSCULAR HGB CONC 31 g/dl (31.0-36.0); MEAN CORPUSCULAR VOLUME 96 fL (80-96); MONOCYTES % (AUTO) 9.4 % (2.0-12.0); NEUTROPHILS # (AUTO) 5.4 /CMM (1.8-8.9); PLATELET COUNT (AUTO) 217 /CMM (150-450); RED BLOOD CELL COUNT(AUTO) 3.02 MIL/uL (4.5-6.0); WHITE BLOOD COUNT (AUTO) 10.6 K/uL (4.3-11.0)
[2019-09-24] MEDS: LEVOTHYROXINE SODIUM 88 MCG TABLET GT SCH (07:40)
[2019-09-24 08:00] VITALS: BP 112/65
[2019-09-24] MEDS: BUDESONIDE RESPULE INH 0.5 MG/2 ML AMPUL.NEB IH SCH ×2 (08:01→19:38)
--- NOTE | 2019-09-24 08:23 | NUR ---
WOUND CARE FOLLOW UP: PT SEEN FOR SKIN REASSESSMENT AND NOTED TO HAVE DRY PEELING SKIN TO LOWER LEGS WITH DRY SCAB TO LEFT LOWER LEG AND SACRAL/BUTTOCK STAGE 2 ULCERS WHICH WERE PRESENT ON ADMISSION. RASH TO PERINEUM AND BUTTOCKS IS IMPROVING. RECOMMENDATIONS MADE FOR SKIN PROTECTION AND WOUND CARE. DISCUSSED WITH NURSING STAFF. PT IS NOW ABLE TO ASSIST WITH TURNING AND REPOSITIONING IN BED. WILL SEE PRN. MENDIETA IN AGREEMENT WITH PLAN OF CARE. Addendum: 09/24/19 at 0830 by JORDYN REYNOLDS WNDNU Amended: Links added.
[2019-09-24] MEDS: SUCRALFATE 1 G/10 ML UDC GT SCH (08:55)
[2019-09-24] MEDS: HEPARIN SODIUM, PORCINE 5000 UNITS/1 ML VIAL SQ SCH ×2 (08:55→21:37)
[2019-09-24] MEDS: MULTIVIT W/MINERALS 1 TAB TABLET GT SCH (08:55)
[2019-09-24] MEDS: DOCUSATE SODIUM LIQ 100 MG/10 ML UDC GT SCH ×2 (08:55→17:29)
[2019-09-24] MEDS: FUROSEMIDE 80 MG TABLET GT SCH (08:55)
[2019-09-24] MEDS: CLOTRIMAZOLE 1% 15 GM TUBE TP SCH ×2 (08:57→17:29)
[2019-09-24] MEDS: DILTIAZEM HCL CD 240 MG PO SCH (08:57)
[2019-09-24] MEDS: NYSTATIN OINT 100000 UNIT/G 15 GM TUBE TP SCH ×3 (08:59→17:30)
[2019-09-24] MEDS: MUPIROCIN OINT 2% 22 GM TUBE SCH (09:00)
--- NOTE | 2019-09-24 10:00 | NUR ---
MANAGER LEAN NOTES FOLLOWED UP PHARMACY REGARDING EUCERIN NOT AVAILABLE ON THE FLOOR SPOKE WITH PHARMACY [facility] SAID THEY WILL BRING IT.
[2019-09-24] MEDS: ACETYLCYSTEINE 10% SOLN 400 MG/4 ML VIAL NEB SCH ×2 (11:38→17:11)
--- NOTE | 2019-09-24 12:06 | NUR ---
TELER RN NOTES PATIENT ON VENT, COMBIVENT INHALER NOT ADMINISTER
[2019-09-24] MEDS: LORAZEPAM 1 MG TABLET GT PRN (12:12)
--- NOTE | 2019-09-24 12:12 | NUR ---
PROCUREMENT INTERN NOTES PATIENT VERBALIZING HE'S ANXIOUS, PATIENT ALERT ORIENTED X 3. NO ACUTE DISTRESS NOTED. BLOOD PRESSURE 146/58, TEMP 98, HR 118, O2 SATURATION 99-100%. ATIVAN GIVEN PRESCRIBED.
[2019-09-24] MEDS: INSULIN REGULAR, HUMAN 100 UNIT/ML 3 ML VIAL SQ PRN ×2 (12:18→18:38)
[2019-09-24] MEDS: MINERAL OIL/PETROLATUM,WHITE 120 GM JAR TP SCH (12:30)
--- NOTE | 2019-09-24 12:55 | NUR ---
PICTURE ENLARGER NOTES PATIENT SINUS TACHYCARDIA [id number] WITH PVC ON TELE MONITOR , NOTIFIED DR MANISH BARRERA, NO NEW ORDERS MADE SAID JUST TO CONTINUE MONITOR PATIENT.
--- NOTE | 2019-09-24 15:00 | NUR ---
TEMPLATE CHECKER NOTES PATIENT EYES CLOSED EASY TO AROUSE, RESPOND TO VERBAL AND TACTILE STIMULI. NO ACUTE DISTRESS NOTED. VITAL SIGNS STABLE, HR 109. WILL CONTINUE TO MONITOR PATIENT.
[2019-09-24 16:00] VITALS: BP 102/58
--- NOTE | 2019-09-24 18:30 | NUR ---
DISABILITY REPRESENTATIVE NOTES PATIENT ON VENT, COMBIVENT INHALER NOT ADMINISTER
--- NOTE | 2019-09-24 19:00 | NUR ---
STONEWORKER NOTES PATIENT IN BED EYES CLOSED , RESPOND TO VERBAL AND TACTILE STIMULI. BREATHING EVEN AND UNLABORED. ON VENTILATOR SET ON ORDERED SETTING. NO SIGNS OF ACUTE RESPIRATORY DISTRESS, NO ACUTE PAIN. ON TELE MONITOR SINUS RHYTHM. DAILEY CATHETER INTACT, DRAINING WELL. IV ACCESS PATENT AND INTACT, NO REDNESS OR SWELLING NOTED. GTUBE RUNNING GLUCERNA 1.2 AT 30ML/HR, IN PLACE AND INTACT, NO RESIDUALS, TOLERATING WELL. NEEDS ATTENDED AND ANTICIPATED. TURN AND REPOSITION EVERY 2 HOURS AND NEEDED. SAFETY MEASURES IN PLACE. CALL LIGHT WITHIN REACH. WILL ENDORSE TO NIGHT NURSE FOR CONTINUITY OF CARE.
[2019-09-24 20:00] VITALS: BP 119/64
[2019-09-24] MEDS: TAMSULOSIN 0.4 MG CAP.SR.24H GT SCH (21:36)
[2019-09-24] MEDS: ATORVASTATIN 10 MG TABLET GT SCH (21:36)
[2019-09-24] MEDS: QUETIAPINE FUMARATE 100 MG TABLET GT SCH (21:37)
[2019-09-25] VITALS: BP 110/54
[2019-09-25] MEDS: ACETYLCYSTEINE 10% SOLN 400 MG/4 ML VIAL NEB SCH ×4 (00:10→23:20)
[2019-09-25] MEDS: BLOOD SUGAR DIAGNOSTIC 1 EACH STRIP IN SCH ×4 (01:33→17:21)
[2019-09-25] MEDS: IPRATROPIUM NEB FS 0.5 MG/2.5 ML AMPUL.NEB NEB SCH ×4 (01:53→20:04)
[2019-09-25 04:00] VITALS: BP 102/60
[2019-09-25] MEDS: IPRATROPIUM/ALBUTEROL INHALER IH SCH ×4 (05:44→18:00)
--- NOTE | 2019-09-25 06:20 | NUR ---
APPLICATION ARCHITECT MANAGER NOTES AWAKE & RESPONSIVE. NOT IN ANY DISTRESS. NO SOB NOTED. WITH SAME VENT SETTINGS. ON TELE SR @ 96 WITH IV-HL PATENT & INTACT. AM CARE DONE. MONITORED ACCORDINGLY. CALL LIGHT WITHIN REACH. BED IN LOWEST POSITION. SR UP X 3 WITH BED ALARM ON FOR SAFETY. WILL ENDORSE TO NEXT SHIFT.
--- NOTE | 2019-09-25 07:17 | NUR ---
RN NOTES RECEIVED PATIENT IN BED EYES CLOSED , RESPOND TO VERBAL AND TACTILE STIMULI. BREATHING EVEN AND UNLABORED. ON VENTILATOR SET ON ORDERED SETTING. NO SIGNS OF ACUTE RESPIRATORY DISTRESS NOTED AT THIS TIME. ON TELE MONITOR SINUS RHYTHM. DAILEY CATHETER INTACT, DRAINING WELL. IV ACCESS PATENT AND INTACT, GTUBE RUNNING GLUCERNA 1.2 AT 30ML/HR, IN PLACE AND INTACT, NO RESIDUALS, TOLERATING WELL. SAFETY MEASURES IN PLACE. BED IN LOWEST LOCKED POSITION WITH SIDE RAULS UP X2. CALL LIGHT WITHIN REACH. WILL CONTINUE TO MONITOR.
[2019-09-25 07:20] LABS: BASOPHILS % (AUTO) 0.5 % (0.0-2.0); EOSINOPHILS % (AUTO) 4.2 % (0.0-6.0); HEMATOCRIT 28 % (39-51); HEMOGLOBIN 8.5 g/dL (13.5-17.5); LYMPHOCYTES % (AUTO) 24.3 % (20.0-44.0); MEAN CORPUSCULAR HGB CONC 31 g/dl (31.0-36.0); MEAN CORPUSCULAR VOLUME 97 fL (80-96); MONOCYTES # (AUTO) 0.8 /CMM (0.1-1.30); MONOCYTES % (AUTO) 10.1 % (2.0-12.0); NEUTROPHILS # (AUTO) 5.1 /CMM (1.8-8.9); NEUTROPHILS % (AUTO) 60.9 % (43.0-81.0); PLATELET COUNT (AUTO) 219 /CMM (150-450); RED BLOOD CELL COUNT(AUTO) 2.87 MIL/uL (4.5-6.0); WHITE BLOOD COUNT (AUTO) 8.4 K/uL (4.3-11.0)
[2019-09-25 07:22] LABS: CALCIUM, SERUM 9.3 mg/dL (8.5-10.1); CARBON DIOXIDE 33 mmol/L (21-32); CHLORIDE 108 mmol/L (98-107); CREATININE 4.9 mg/dL (0.6-1.3); GLUCOSE 140 mg/dL (74-106); POTASSIUM 4.9 mmol/L (3.5-5.1); SODIUM SERUM 148 mmol/L (136-145)
[2019-09-25 07:23] LABS: UREA NITROGEN, BLOOD 84 mg/dL (7-18)
[2019-09-25] MEDS: BUDESONIDE RESPULE INH 0.5 MG/2 ML AMPUL.NEB IH SCH ×2 (07:53→20:04)
[2019-09-25 08:00] VITALS: BP 107/60
[2019-09-25] MEDS: DOCUSATE SODIUM LIQ 100 MG/10 ML UDC GT SCH ×2 (08:32→16:11)
[2019-09-25] MEDS: SUCRALFATE 1 G/10 ML UDC GT SCH (08:32)
[2019-09-25] MEDS: FUROSEMIDE 80 MG TABLET GT SCH (08:33)
[2019-09-25] MEDS: LEVOTHYROXINE SODIUM 88 MCG TABLET GT SCH (08:33)
[2019-09-25] MEDS: DILTIAZEM HCL CD 240 MG PO SCH (08:33)
[2019-09-25] MEDS: HEPARIN SODIUM, PORCINE 5000 UNITS/1 ML VIAL SQ SCH ×2 (08:34→23:46)
[2019-09-25] MEDS: MULTIVIT W/MINERALS 1 TAB TABLET GT SCH (08:34)
[2019-09-25] MEDS: MINERAL OIL/PETROLATUM,WHITE 120 GM JAR TP SCH (08:35)
[2019-09-25] MEDS: NYSTATIN OINT 100000 UNIT/G 15 GM TUBE TP SCH ×3 (08:35→16:26)
[2019-09-25] MEDS: CLOTRIMAZOLE 1% 15 GM TUBE TP SCH ×2 (08:35→16:26)
[2019-09-25] MEDS: INSULIN REGULAR, HUMAN 100 UNIT/ML 3 ML VIAL SQ PRN ×2 (11:23→17:29)
[2019-09-25 16:00] VITALS: BP 107/60
--- NOTE | 2019-09-25 16:30 | NUR ---
RN NOTES UNABLE TO DO CT CHEST WO CONTRAST, PATIENT CANNOT FIT TO THE MACHINE. NOTIFIED DR. GILLESPIE WITH ORDERS TO DO ULTRASOUND OF RIGHT CHEST. ORDERS MADE AND CARRIED OUT.
[2019-09-25] MEDS: NEPRO 1,000 ML BOTTLE GT PRN (17:53)
--- NOTE | 2019-09-25 18:30 | NUR ---
RN NOTES CALLED ULTRASOUND X2, NO ANSWER, CALLED RADIOLOGY AND SPOKE TO RADHA AND PER RADHA HE WILL TRY TO CONTRACT ULTRASOUND(NARENDRA) TO DO ULTRASOUND OF RIGHT CHEST. WILL ENDORSE TO PAYMENT POSTER NURSE.
--- NOTE | 2019-09-25 18:44 | NUR ---
RN NOTES PATIENT IN BED EYES CLOSED , RESPOND TO VERBAL AND TACTILE STIMULI. BREATHING EVEN AND UNLABORED. ON VENTILATOR SET ON ORDERED SETTING. NO SIGNS OF ACUTE RESPIRATORY DISTRESS NOTED THROUGHOUT THE SHIFT. ON TELE MONITOR SINUS RHYTHM. DAILEY CATHETER INTACT, DRAINING WELL. IV ACCESS PATENT AND INTACT, GTUBE RUNNING NEPHRO AT 30ML/HR, IN PLACE AND INTACT, NO RESIDUALS, TOLERATING WELL. SAFETY MEASURES IN PLACE. BED IN LOWEST LOCKED POSITION WITH SIDE RAULS UP X2. CALL LIGHT WITHIN REACH. WILL ENDORSE TO MILIEU COUNSELOR NURSE FOR REESE.
[2019-09-25 20:00] VITALS: BP 115/64
[2019-09-25] MEDS: QUETIAPINE FUMARATE 100 MG TABLET GT SCH (23:44)
[2019-09-25] MEDS: TAMSULOSIN 0.4 MG CAP.SR.24H GT SCH (23:45)
[2019-09-25] MEDS: ATORVASTATIN 10 MG TABLET GT SCH (23:45)
[2019-09-26] MEDS: IPRATROPIUM/ALBUTEROL INHALER IH SCH ×4 (00:14→18:00)
[2019-09-26] MEDS: BLOOD SUGAR DIAGNOSTIC 1 EACH STRIP IN SCH ×4 (00:23→17:05)
--- NOTE | 2019-09-26 02:04 | NUR ---
MS/TELE/RN PATIENT IS SLEEPING AT THIS TIME, AROUSABLE, APPEAR COMFORTABLE, NO SIGNS OF DISTRESS NOTED, CALL LIGHT IN REACH. WILL CONTINUE TO MONITOR.
[2019-09-26] MEDS: IPRATROPIUM NEB FS 0.5 MG/2.5 ML AMPUL.NEB NEB SCH ×4 (02:18→20:08)
[2019-09-26] MEDS: INSULIN REGULAR, HUMAN 100 UNIT/ML 3 ML VIAL SQ PRN ×3 (05:51→17:07)
--- NOTE | 2019-09-26 06:17 | NUR ---
MS/TELE/RN PATIENT IS SLEEPING AT THIS TIME, APPEAR COMFORTABLE, NO SIGNS OF DISTRESS NOTED, HOB ELEVATED, ALL NEEDS ATTENDED AT THIS TIME, WILL CONTINUE TO MONITOR.
[2019-09-26 06:23] LABS: BASOPHILS # (AUTO) 0.1 /CMM (0.0-0.2); BASOPHILS % (AUTO) 1.1 % (0.0-2.0); EOSINOPHILS % (AUTO) 8.5 % (0.0-6.0); HEMATOCRIT 27 % (39-51); HEMOGLOBIN 8.4 g/dL (13.5-17.5); LYMPHOCYTES # (AUTO) 2.5 /CMM (0.8-4.8); LYMPHOCYTES % (AUTO) 29.7 % (20.0-44.0); MEAN CORPUSCULAR HGB CONC 31 g/dl (31.0-36.0); MEAN CORPUSCULAR VOLUME 96 fL (80-96); MONOCYTES # (AUTO) 0.7 /CMM (0.1-1.30); MONOCYTES % (AUTO) 8.9 % (2.0-12.0); NEUTROPHILS # (AUTO) 4.3 /CMM (1.8-8.9); NEUTROPHILS % (AUTO) 51.8 % (43.0-81.0); PLATELET COUNT (AUTO) 197 /CMM (150-450); WHITE BLOOD COUNT (AUTO) 8.3 K/uL (4.3-11.0)
[2019-09-26 06:54] LABS: CALCIUM, SERUM 8.9 mg/dL (8.5-10.1); CARBON DIOXIDE 32 mmol/L (21-32); CHLORIDE 109 mmol/L (98-107); CREATININE 5.6 mg/dL (0.6-1.3); GLUCOSE 147 mg/dL (74-106); POTASSIUM 4.5 mmol/L (3.5-5.1); SODIUM SERUM 149 mmol/L (136-145)
[2019-09-26 06:56] LABS: UREA NITROGEN, BLOOD 98 mg/dL (7-18)
--- NOTE | 2019-09-26 07:15 | NUR ---
RN NOTES RECEIVED PATIENT IN BED RESTING COMFORTABLY IN MODERATE HIGH BACK REST, RESPOND TO VERBAL AND TACTILE STIMULI. BREATHING EVEN AND UNLABORED. ON VENTILATOR SET ON ORDERED SETTING. NO SIGNS OF ACUTE RESPIRATORY DISTRESS NOTED AT THIS TIME. ON TELE MONITOR SINUS RHYTHM. DAILEY CATHETER INTACT, DRAINING WELL. IV ACCESS PATENT AND INTACT, GTUBE RUNNING NEPHRO AT 30ML/HR, IN PLACE AND INTACT, NO RESIDUALS, TOLERATING WELL. SAFETY MEASURES IN PLACE. BED IN LOWEST LOCKED POSITION WITH SIDE RAULS UP X2. CALL LIGHT WITHIN REACH. WILL CONTINUE TO MONITOR.
[2019-09-26] MEDS: ACETYLCYSTEINE 10% SOLN 400 MG/4 ML VIAL NEB SCH ×3 (07:44→23:26)
[2019-09-26] MEDS: BUDESONIDE RESPULE INH 0.5 MG/2 ML AMPUL.NEB IH SCH ×2 (07:44→20:08)
--- NOTE | 2019-09-26 07:48 | NUR ---
PT RCVD TRACH'D ON MECHANICAL VENT WITH CHARTED SETTINGS. PT [place] TX WELL. SX DONE. PT TRACH IS PATENT AND SECURE. VENT ALARMS ARE ON AND AUDIBLE. VENT PLUGGED INTO RED OUTLET. AMBU BAG AT BEDSIDE. NO SOB NOTED. Addendum: 09/26/19 at 0750 by JEFF GARCIA RT Amended: Links added.
[2019-09-26 08:00] VITALS: BP 106/57
[2019-09-26] MEDS: MULTIVIT W/MINERALS 1 TAB TABLET GT SCH (08:28)
[2019-09-26] MEDS: SUCRALFATE 1 G/10 ML UDC GT SCH (08:28)
[2019-09-26] MEDS: LEVOTHYROXINE SODIUM 88 MCG TABLET GT SCH (08:28)
[2019-09-26] MEDS: FUROSEMIDE 80 MG TABLET GT SCH (08:29)
[2019-09-26] MEDS: DOCUSATE SODIUM LIQ 100 MG/10 ML UDC GT SCH ×2 (08:29→16:28)
[2019-09-26] MEDS: HEPARIN SODIUM, PORCINE 5000 UNITS/1 ML VIAL SQ SCH (08:30)
[2019-09-26] MEDS: MINERAL OIL/PETROLATUM,WHITE 120 GM JAR TP SCH (08:33)
[2019-09-26] MEDS: CLOTRIMAZOLE 1% 15 GM TUBE TP SCH ×2 (08:33→16:35)
[2019-09-26] MEDS: NYSTATIN OINT 100000 UNIT/G 15 GM TUBE TP SCH ×3 (08:34→16:36)
[2019-09-26] MEDS: DILTIAZEM HCL CD 240 MG PO SCH (08:45)
--- NOTE | 2019-09-26 14:25 | NUR ---
Per JOSEPHINE Villafuerte patient was given heparin at 9am, informed RN to hold heparin 12 hrs prior to US guided thoracentesis. RN to order current INR. Thoracentesis to be preformed on 09/27/[address] Saldivar's request.
[2019-09-26] MEDS: IV NS 0.9% 1,000 ML IV PRN (15:34)
[2019-09-26 16:00] VITALS: BP 152/70
[2019-09-26] MEDS: ACETAMINOPHEN 325 MG TABLET PO PRN (17:50)
--- NOTE | 2019-09-26 18:00 | NUR ---
RN NOTES THE INHALER DOES NOT WORK FOR THE PATIENT HE HAS A TRACH.
--- NOTE | 2019-09-26 18:38 | NUR ---
RN NOTES PATIENT IN BED RESTING COMFORTABLY IN MODERATE HIGH BACK REST, RESPOND TO VERBAL AND TACTILE STIMULI. BREATHING EVEN AND UNLABORED. ON VENTILATOR SET ON ORDERED SETTING. ON TELE MONITOR SINUS RHYTHM. DAILEY CATHETER INTACT, DRAINING WELL. IV ACCESS PATENT AND INTACT, GTUBE RUNNING NEPHRO AT 40ML/HR, IN PLACE AND INTACT, NO RESIDUALS, TOLERATING WELL. SCHEDULES FOR THORACENTESIS IN AM, CONSENT SIGNED, HOLD HEPARIN. SAFETY MEASURES IN PLACE. BED IN LOWEST LOCKED POSITION WITH SIDE RAULS UP X2. CALL LIGHT WITHIN REACH. WILL ENDORSE TO HOME HEALTH SPECIALIST NURSE FOR REESE.
[2019-09-26 20:00] VITALS: BP 150/72
[2019-09-26] MEDS: NEPRO 1,000 ML BOTTLE GT PRN (22:32)
[2019-09-26] MEDS: QUETIAPINE FUMARATE 100 MG TABLET GT SCH (22:33)
[2019-09-26] MEDS: TAMSULOSIN 0.4 MG CAP.SR.24H GT SCH (22:33)
[2019-09-26] MEDS: ATORVASTATIN 10 MG TABLET GT SCH (22:33)
[2019-09-27 00:01] VITALS: BP 124/61
[2019-09-27] MEDS: BLOOD SUGAR DIAGNOSTIC 1 EACH STRIP IN SCH ×5 (00:23→23:34)
[2019-09-27] MEDS: IPRATROPIUM/ALBUTEROL INHALER IH SCH ×4 (00:26→17:55)
--- NOTE | 2019-09-27 00:35 | NUR ---
MS/TELE/RN BLOOD SUGAR 174, DID NOT GIVE INSULIN PATIENT WILL BE NPO AFTER MIDNIGHT FOR U/S GUIDED THORACENTESIS IN A.M. WILL MONITOR.
[2019-09-27] MEDS: IPRATROPIUM NEB FS 0.5 MG/2.5 ML AMPUL.NEB NEB SCH ×4 (01:53→20:08)
[2019-09-27 04:00] VITALS: BP 125/59
--- NOTE | 2019-09-27 06:49 | NUR ---
MS/TELE/RN PATIENT IS AWAKE, ALERT, COMFORTABLE, NO DISTRESS NOTED, HOB ELEVATED, TRACH CARE HAS BEEN DONE, TOLERATED WELL, GT SITE DRESSING CHANGED, MORNING CARE HAS BEEN DONE, ALL NEEDS ATTENDED AT THIS TIME, WILL CONTINUE TO MONITOR.
[2019-09-27 07:51] LABS: BASOPHILS # (AUTO) 0.1 /CMM (0.0-0.2); BASOPHILS % (AUTO) 0.7 % (0.0-2.0); EOSINOPHILS % (AUTO) 6.2 % (0.0-6.0); HEMATOCRIT 27 % (39-51); HEMOGLOBIN 8.8 g/dL (13.5-17.5); LYMPHOCYTES % (AUTO) 20.3 % (20.0-44.0); MEAN CORPUSCULAR HGB CONC 32 g/dl (31.0-36.0); MEAN CORPUSCULAR VOLUME 95 fL (80-96); MONOCYTES % (AUTO) 9.9 % (2.0-12.0); NEUTROPHILS # (AUTO) 6.4 /CMM (1.8-8.9); NEUTROPHILS % (AUTO) 62.9 % (43.0-81.0); PLATELET COUNT (AUTO) 202 /CMM (150-450); RED BLOOD CELL COUNT(AUTO) 2.88 MIL/uL (4.5-6.0); WHITE BLOOD COUNT (AUTO) 10.1 K/uL (4.3-11.0)
[2019-09-27 08:00] VITALS: BP 118/66
[2019-09-27] MEDS: ACETYLCYSTEINE 10% SOLN 400 MG/4 ML VIAL NEB SCH ×3 (08:00→23:58)
--- NOTE | 2019-09-27 08:00 | NUR ---
SONG PLUGGER OPENING NOTES Received Patient asleep and resting in bed. A/O x 3. VS stable with no acute distress. Breathing even and unlabored on trachea and vent with no respiratory distress. Denies pain. No signs and symptoms of pain. Telemonitor in place and patent reading SR with HR-91. Leija Cath in place and patent. GTube in place and patent with Nephro infusing at 45ml/hr. 22g PIV on Left hand clean, intact, patent and flushing well with NS infusing at 45ml/hr. Safety precautions in place. Bed locked and set to lowest position with side rails x 2 up. All needs rendered at this time. Call light within reach. Will continue to monitor.
[2019-09-27 08:03] LABS: CALCIUM, SERUM 9.1 mg/dL (8.5-10.1); CARBON DIOXIDE 28 mmol/L (21-32); CHLORIDE 108 mmol/L (98-107); CREATININE 6.6 mg/dL (0.6-1.3); GLUCOSE 126 mg/dL (74-106); POTASSIUM 4.6 mmol/L (3.5-5.1); SODIUM SERUM 149 mmol/L (136-145)
[2019-09-27 08:18] LABS: UREA NITROGEN, BLOOD 103 mg/dL (7-18)
[2019-09-27] MEDS: BUDESONIDE RESPULE INH 0.5 MG/2 ML AMPUL.NEB IH SCH ×2 (08:23→19:30)
[2019-09-27] MEDS: MULTIVIT W/MINERALS 1 TAB TABLET GT SCH (09:08)
[2019-09-27] MEDS: LEVOTHYROXINE SODIUM 88 MCG TABLET GT SCH (09:08)
[2019-09-27] MEDS: DILTIAZEM HCL CD 240 MG PO SCH (09:08)
[2019-09-27] MEDS: DOCUSATE SODIUM LIQ 100 MG/10 ML UDC GT SCH ×2 (09:08→17:55)
[2019-09-27] MEDS: SUCRALFATE 1 G/10 ML UDC GT SCH (09:08)
[2019-09-27] MEDS: CLOTRIMAZOLE 1% 15 GM TUBE TP SCH ×2 (09:14→17:55)
[2019-09-27] MEDS: MINERAL OIL/PETROLATUM,WHITE 120 GM JAR TP SCH (09:14)
[2019-09-27] MEDS: NYSTATIN OINT 100000 UNIT/G 15 GM TUBE TP SCH ×3 (09:15→17:55)
[2019-09-27] MEDS: INSULIN REGULAR, HUMAN 100 UNIT/ML 3 ML VIAL SQ PRN ×3 (12:41→23:40)
[2019-09-27 16:00] VITALS: BP 115/64
--- NOTE | 2019-09-27 19:07 | NUR ---
SENIOR HEALTH PHYSICS TECHNICIAN OPENING NOTES Received Patient asleep and resting in bed. A/O x 3. VS stable with no acute distress. Breathing even and unlabored on trachea and vent with no respiratory distress. Denies pain. No signs and symptoms of pain. Telemonitor in place and patent reading SR with HR-91. Leija Cath in place and patent. GTube in place and patent with Nephro infusing at 45ml/hr. 22g PIV on Left hand clean, intact, patent and flushing well with NS infusing at 45ml/hr. Safety precautions in place. Bed locked and set to lowest position with side rails x 2 up. All needs rendered at this time. Call light within reach. Will continue to monitor. Addendum: 09/27/19 at 1914 by ISIDORO BABB RN DISREGARD DUPLICATE
--- NOTE | 2019-09-27 19:09 | NUR ---
RADIO INTERFERENCE SUPERVISOR OPENING NOTES Received Patient asleep and resting in bed. A/O x 3. VS stable with no acute distress. Breathing even and unlabored on trachea and vent with no respiratory distress. Denies pain. No signs and symptoms of pain. Telemonitor in place and patent reading SR with HR-91. Leija Cath in place and patent. GTube in place and patent with Nephro infusing at 45ml/hr. 22g PIV on Left hand clean, intact, patent and flushing well with NS infusing at 45ml/hr. Safety precautions in place. Bed locked and set to lowest position with side rails x 2 up. All needs rendered at this time. Call light within reach. Will continue to monitor. Addendum: 09/27/19 at 1913 by ISIDORO BABB RN DISREGARD DUPLICATE
--- NOTE | 2019-09-27 19:14 | NUR ---
RESIDENCE LIFE COORDINATOR CLOSING NOTES Patient asleep and resting in bed. A/O x 3. VS stable with no acute distress. Breathing even and unlabored on trachea and vent with no respiratory distress. Denies pain. No signs and symptoms of pain. Telemonitor in place and patent reading SR with HR-92. Leija Cath in place and patent. GTube in place and patent with Nephro infusing at 45ml/hr. 22g PIV on Left hand clean, intact, patent and flushing well with NS infusing at 45ml/hr. Safety precautions in place. Bed locked and set to lowest position with side rails x 2 up. All needs rendered at this time. Call light within reach. Will endorse plan of care to oncoming shift.
[2019-09-27 19:30] VITALS: BP 136/70
--- NOTE | 2019-09-27 19:48 | NUR ---
BARREL RAISER NOTES PATIENT IN BED, ASLEEP, ALERT AND ORIENTED X 3. BREATHING EVEN AND UNLABORED ON MV PORTEX 9, AC 18, TV 600 FIO2 40% AND PEEP 5. SHOWS NO SIGNS OF ACUTE RESPIRATORY DISTRESS, NO ACUTE PAIN. TELE ON SR. DAILEY CATHETER IS INTACT, FLOWING, YELLOW URINE. GT FEEDING ON NEPHRO 45ML/HR, FLUSHING WELL. IV ON 22G LEFT HAND RUNNING NS AT 75ML/HR. ITS CLEAN DRY AND INTACT. SAFETY PRECAUTIONS IN PLACE. BED IN LOWEST POSITION, LOCKED, AND CALL LIGHT KEPT WITHIN REACH. WILL CONTINUE TO MONITOR.
[2019-09-27 20:00] VITALS: BP 136/70
[2019-09-27] MEDS: IV NS 0.9% 1,000 ML IV PRN (20:39)
[2019-09-27] MEDS: TAMSULOSIN 0.4 MG CAP.SR.24H GT SCH (21:48)
[2019-09-27] MEDS: ATORVASTATIN 10 MG TABLET GT SCH (21:48)
[2019-09-27] MEDS: QUETIAPINE FUMARATE 100 MG TABLET GT SCH (21:48)
[2019-09-28] VITALS: BP 116/62
--- NOTE | 2019-09-28 | NUR ---
DESK MONITOR NOTES THE INHALER DOES NOT WORK FOR THE PATIENT HE HAS A TRACH.
[2019-09-28] MEDS: IPRATROPIUM NEB FS 0.5 MG/2.5 ML AMPUL.NEB NEB SCH ×4 (02:19→19:14)
[2019-09-28 04:00] VITALS: BP 129/59
[2019-09-28] MEDS: IPRATROPIUM/ALBUTEROL INHALER IH SCH ×2 (06:00)
--- NOTE | 2019-09-28 06:00 | NUR ---
LICENSED PROSTHETIST NOTES THE INHALER DOES NOT WORK FOR THE PATIENT HE HAS A TRACH.
[2019-09-28] MEDS: BLOOD SUGAR DIAGNOSTIC 1 EACH STRIP IN SCH ×4 (06:01→23:50)
[2019-09-28] MEDS: INSULIN REGULAR, HUMAN 100 UNIT/ML 3 ML VIAL SQ PRN ×4 (06:02→23:52)
--- NOTE | 2019-09-28 06:36 | NUR ---
RIG SUPERVISOR NOTES PATIENT IN BED, ASLEEP, ALERT AND ORIENTED X 3. BREATHING EVEN AND UNLABORED ON MV PORTEX 9, AC 18, TV 600 FIO2 40% AND PEEP 5. SHOWS NO SIGNS OF ACUTE RESPIRATORY DISTRESS, NO ACUTE PAIN. TELE ON SR. DAILEY CATHETER IS INTACT, FLOWING, YELLOW URINE. GT FEEDING ON NEPHRO 45ML/HR, FLUSHING WELL, 10ML OF RESIDUALS. IV ON 22G LEFT HAND RUNNING NS AT 75ML/HR. ITS CLEAN DRY AND INTACT. ALL DUE MEDICATIONS GIVEN. SAFETY PRECAUTIONS IN PLACE. BED IN LOWEST POSITION, LOCKED, AND CALL LIGHT KEPT WITHIN REACH. WILL ENDORSE TO ONCOMING NURSE.
--- NOTE | 2019-09-28 07:30 | NUR ---
Tele/RN Opening note Received patient in bed, AO x 2-3, able to responds all stimuli. Noticed O2sat decreased 85-92% fluctuate, RT provided suction and breathing treatment, pt became stable respiration now. Skin is warm to touch, kept clean/dry. Running g tube feeding at 45 ml, no s/s of over fluid observed. Kept lower position of the bed, with locked wheel and HOB for safety. Call light within reach, will continue to monitor.
[2019-09-28] MEDS: LEVOTHYROXINE SODIUM 88 MCG TABLET GT SCH (07:37)
[2019-09-28] MEDS: ACETYLCYSTEINE 10% SOLN 400 MG/4 ML VIAL NEB SCH ×3 (07:44→22:35)
[2019-09-28] MEDS: BUDESONIDE RESPULE INH 0.5 MG/2 ML AMPUL.NEB IH SCH ×2 (07:45→19:50)
[2019-09-28 07:50] LABS: BASOPHILS # (AUTO) 0.1 /CMM (0.0-0.2); BASOPHILS % (AUTO) 0.7 % (0.0-2.0); EOSINOPHILS % (AUTO) 5.6 % (0.0-6.0); HEMATOCRIT 31 % (39-51); HEMOGLOBIN 9.5 g/dL (13.5-17.5); LYMPHOCYTES # (AUTO) 2.5 /CMM (0.8-4.8); LYMPHOCYTES % (AUTO) 20.8 % (20.0-44.0); MEAN CORPUSCULAR HGB CONC 31 g/dl (31.0-36.0); MEAN CORPUSCULAR VOLUME 97 fL (80-96); MONOCYTES # (AUTO) 1.5 /CMM (0.1-1.30); MONOCYTES % (AUTO) 12.3 % (2.0-12.0); NEUTROPHILS # (AUTO) 7.3 /CMM (1.8-8.9); NEUTROPHILS % (AUTO) 60.6 % (43.0-81.0); PLATELET COUNT (AUTO) 202 /CMM (150-450); RED BLOOD CELL COUNT(AUTO) 3.17 MIL/uL (4.5-6.0); WHITE BLOOD COUNT (AUTO) 12.1 K/uL (4.3-11.0)
[2019-09-28 07:58] LABS: CALCIUM, SERUM 9.4 mg/dL (8.5-10.1); CARBON DIOXIDE 29 mmol/L (21-32); CHLORIDE 107 mmol/L (98-107); GLUCOSE 201 mg/dL (74-106); POTASSIUM 5.1 mmol/L (3.5-5.1); SODIUM SERUM 145 mmol/L (136-145)
[2019-09-28 07:59] LABS: CREATININE 7.5 mg/dL (0.6-1.3); UREA NITROGEN, BLOOD 113 mg/dL (7-18)
[2019-09-28 08:00] VITALS: BP 115/51
[2019-09-28] MEDS: MULTIVIT W/MINERALS 1 TAB TABLET GT SCH (08:18)
[2019-09-28] MEDS: DOCUSATE SODIUM LIQ 100 MG/10 ML UDC GT SCH ×2 (08:18→17:00)
[2019-09-28] MEDS: DILTIAZEM HCL CD 240 MG PO SCH (08:18)
[2019-09-28] MEDS: SUCRALFATE 1 G/10 ML UDC GT SCH (08:18)
[2019-09-28] MEDS: CLOTRIMAZOLE 1% 15 GM TUBE TP SCH ×2 (08:19→17:00)
[2019-09-28] MEDS: MINERAL OIL/PETROLATUM,WHITE 120 GM JAR TP SCH (08:19)
[2019-09-28] MEDS: NYSTATIN OINT 100000 UNIT/G 15 GM TUBE TP SCH ×3 (08:19→17:00)
--- NOTE | 2019-09-28 11:28 | NUR ---
received call from us administrative technician Samantha stating that us guided thoracentesis was done yesterday with 700 cc fluid removal, she was not able to document due to technical difficulty.
[2019-09-28] MEDS: ALBUTEROL FS 2.5 MG/3 ML VIAL.NEB NEB SCH ×2 (13:39→19:15)
[2019-09-28 16:00] VITALS: BP 120/57
[2019-09-28] MEDS: NEPRO 1,000 ML BOTTLE GT PRN (16:59)
--- NOTE | 2019-09-28 18:30 | NUR ---
MS/RN Closing note Patient in bed sleeping comfortably, does no appears pain or any discomfort. Respiratory even and unlabored with ventilator, skin is warm to touch, kept clean/dry, provided dressing change. call light within reach, will endorse night clerk auditor.
--- NOTE | 2019-09-28 19:45 | NUR ---
SOCIAL AND POLITICAL STUDIES PROFESSOR OPENING NOTES RECEIVED PATIENT IN BED ALERT AND ORIENTED X 3. VERBALLY RESPONSIVE AND ABLE TO FOLLOW DIRECTIONS. TRACHEOSTOMY INTACT CONNECTED TO MECHANICAL VENTILATOR, CURRENT SETTINGS TOLERATING WELL. LATEST SPO2 97%. BREATHING REGULAR AND UNLABORED. LEFT HAND G22 IV LINE INTACT AND PATENT, INFUSING WELL WITH NO BLEEDING OR S/S OF INFILTRATION NOTED. ON CARDIAC MONITORING WITH ATRIAL FIBRILLATION AT 91bpm. GTUBE PATENT WITH NO RESIDUAL ASPIRATED. NO COMPLAINTS OF PAIN/DISCOMFORT REPORTED AT THIS TIME. ON ASPIRATION PRECAUTION. BED LOW AND LOCKED ON SEMI FOWLERS POSITION. CALL LIGHT IN REACH. WILL CONTINUE TO MONITOR.
--- NOTE | 2019-09-28 19:56 | NUR ---
RT NOTE PT RECEIVED TRACHED ON MECHANICAL VENTILATION. AMBU BAG @ BEDSIDE. SX DONE, TRACH SECURED AND PATENT. ALARMS ON AND AUDIBLE. NO DISTRESS NOTED. CONT. PULSE OX CONNECTED. WILL MONITOR T/O SHIFT. Addendum: 09/28/19 at 1957 by INA JEAN RT Amended: Links added.
[2019-09-28 20:00] VITALS: BP 90/53
[2019-09-28 20:09] VITALS: BP 90/53
[2019-09-28] MEDS: QUETIAPINE FUMARATE 100 MG TABLET GT SCH (21:15)
[2019-09-28] MEDS: ATORVASTATIN 10 MG TABLET GT SCH (21:15)
[2019-09-28] MEDS: TAMSULOSIN 0.4 MG CAP.SR.24H GT SCH (21:15)
[2019-09-28] MEDS: DOXYCYCLINE HYCLATE (100 MG) 100 MG TABLET PO SCH (21:17)
[2019-09-28] MEDS: ALBUTEROL FS 2.5 MG/3 ML VIAL.NEB NEB PRN (21:53)
[2019-09-29] VITALS (8 sets, daily range): BP systolic 98–112; BP diastolic 48–61
--- NOTE | 2019-09-29 00:10 | NUR ---
BOARD SETTER NOTES BS 170mg/dl, 3UNITS REGULAR INSULIN GIVEN SQ. GTUBE FEEDING ON, TOLERATING WELL WITH NO EPISODE OF NAUSEA/VOMITING NOTED. HOB ELEVATED. WILL CONTINUE TO MONITOR.
[2019-09-29] MEDS: ALBUTEROL FS 2.5 MG/3 ML VIAL.NEB NEB SCH ×4 (00:37→19:38)
[2019-09-29] MEDS: IPRATROPIUM NEB FS 0.5 MG/2.5 ML AMPUL.NEB NEB SCH ×4 (00:38→19:38)
[2019-09-29] MEDS: BLOOD SUGAR DIAGNOSTIC 1 EACH STRIP IN SCH ×4 (06:24→23:51)
[2019-09-29] MEDS: INSULIN REGULAR, HUMAN 100 UNIT/ML 3 ML VIAL SQ PRN ×4 (06:25→23:43)
--- NOTE | 2019-09-29 06:40 | NUR ---
AGENCY TRAINER CLOSING NOTES PATIENT IN BED ALERT AND ORIENTED X 3. TRACHEOSTOMY INTACT CONNECTED TO MECHANICAL VENTILATOR, CURRENT SETTINGS TOLERATING WELL WITH NO EPISODE OF DISTRESS NOTED THE WHOLE SHIFT. LEFT HAND G22 IV LINE PATENT AND INFUSING WELL. MAINTAINED ON CARDIAC MONITORING WITH ATRIAL FIBRILLATION AT 97bpm. GTUBE PATENT ON-GOING FEEDING TOLERATING WELL. NO COMPLAINTS OF PAIN/DISCOMFORT REPORTED. BED LOW AND LOCKED ON SEMI FOWLERS POSITION. CALL LIGHT IN REACH. WILL ENDORSE TO MORNING SHIFT FOR REESE.
[2019-09-29] MEDS: LEVOTHYROXINE SODIUM 88 MCG TABLET GT SCH (07:27)
--- NOTE | 2019-09-29 07:30 | NUR ---
MS/RN Opening note Received patient AO x 2-3, able to responds all stimuli. Does no appears pain or any discomfort. Skin is warm to touch, clean/dry, intact IV site, gtube site intact also, running Nephro at 45 ml/hr. Respiratory even and unlabored with ventilator. Kept lower position of the bed with locked wheel and elevated HOB for safety, call light within reach, will continue to monitor.
[2019-09-29 07:57] LABS: CALCIUM, SERUM 9.4 mg/dL (8.5-10.1); CARBON DIOXIDE 29 mmol/L (21-32); CHLORIDE 107 mmol/L (98-107); GLUCOSE 181 mg/dL (74-106); POTASSIUM 4.9 mmol/L (3.5-5.1); SODIUM SERUM 146 mmol/L (136-145)
[2019-09-29 07:58] LABS: CREATININE 8.6 mg/dL (0.6-1.3); UREA NITROGEN, BLOOD 122 mg/dL (7-18)
[2019-09-29] MEDS: ACETYLCYSTEINE 10% SOLN 400 MG/4 ML VIAL NEB SCH ×3 (08:11→23:05)
[2019-09-29 08:12] LABS: BASOPHILS # (AUTO) 0.1 /CMM (0.0-0.2); BASOPHILS % (AUTO) 0.6 % (0.0-2.0); EOSINOPHILS % (AUTO) 4.9 % (0.0-6.0); HEMATOCRIT 27 % (39-51); HEMOGLOBIN 8.3 g/dL (13.5-17.5); LYMPHOCYTES # (AUTO) 2.1 /CMM (0.8-4.8); LYMPHOCYTES % (AUTO) 21.2 % (20.0-44.0); MEAN CORPUSCULAR HGB CONC 31 g/dl (31.0-36.0); MEAN CORPUSCULAR VOLUME 95 fL (80-96); MONOCYTES # (AUTO) 1.1 /CMM (0.1-1.30); MONOCYTES % (AUTO) 11.4 % (2.0-12.0); NEUTROPHILS # (AUTO) 6.2 /CMM (1.8-8.9); NEUTROPHILS % (AUTO) 61.9 % (43.0-81.0); PLATELET COUNT (AUTO) 197 /CMM (150-450)
[2019-09-29] MEDS: BUDESONIDE RESPULE INH 0.5 MG/2 ML AMPUL.NEB IH SCH ×2 (08:39→19:37)
[2019-09-29] MEDS: DOCUSATE SODIUM LIQ 100 MG/10 ML UDC GT SCH ×2 (09:24→17:12)
[2019-09-29] MEDS: MULTIVIT W/MINERALS 1 TAB TABLET GT SCH (09:24)
[2019-09-29] MEDS: SUCRALFATE 1 G/10 ML UDC GT SCH (09:24)
[2019-09-29] MEDS: DOXYCYCLINE HYCLATE (100 MG) 100 MG TABLET PO SCH (09:24)
[2019-09-29] MEDS: DILTIAZEM HCL CD 240 MG PO SCH (09:25)
[2019-09-29] MEDS: MINERAL OIL/PETROLATUM,WHITE 120 GM JAR TP SCH (09:25)
[2019-09-29] MEDS: NYSTATIN OINT 100000 UNIT/G 15 GM TUBE TP SCH ×3 (09:26→17:16)
[2019-09-29] MEDS: CLOTRIMAZOLE 1% 15 GM TUBE TP SCH ×2 (09:26→17:17)
--- NOTE | 2019-09-29 18:30 | NUR ---
MS/RN Closing note Patient in bed comfortably, does no c/o pain or discomfort. Skin is warm to touch, kept clean/dry, intact IV site. Pt is on ventilator, respiratory even and unlabored . Keep lower position of the bed with locked wheel and elevated HOB. Call light within reach, will endorse [facility] shift lead.
--- NOTE | 2019-09-29 19:15 | NUR ---
RN OPENING NOTES Received patient awake, on vent, no SOB/respiratory distress noted at this time. On continuous pulse ox saturating 100%. Patient denies any discomfort at this time. With GTF infusing well, tolerating well, no N/V noted. Kept on bed clean, dry and comfortable. Call light within easy reach. On fall and aspiration precautions. Will continue to monitor accordingly.
--- NOTE | 2019-09-29 19:16 | NUR ---
RN NOTES On tele monitor with controlled A-Fib noted. No s/sx of discomfort noted at this time.
--- NOTE | 2019-09-29 19:38 | NUR ---
RT NOTES PT RECEIVED TRACHED ON [facility] VENT ON CHARTED SETTINGS. NO SIGNS OF RESP DISTRESS. AIRWAY PATENT AND SECURED. PT SUCTIONED. HHN TX GIVEN WITH NO ADVERSE REACTIONS NOTED. AMBUBAG AND SPARE TRACH PRESENT. VENT PLUGGED INTO TO RED OUTLET. WILL CONT TO MONITOR. Addendum: 09/29/19 at 2042 by EMBER YIN RT Amended: Links added.
[2019-09-29] MEDS: LORAZEPAM 1 MG TABLET GT PRN (21:05)
[2019-09-29] MEDS: ACETAMINOPHEN 325 MG TABLET PO PRN (21:05)
[2019-09-29] MEDS: ATORVASTATIN 10 MG TABLET GT SCH (21:05)
[2019-09-29] MEDS: TAMSULOSIN 0.4 MG CAP.SR.24H GT SCH (21:05)
[2019-09-29] MEDS: QUETIAPINE FUMARATE 100 MG TABLET GT SCH (21:05)
[2019-09-30] VITALS: BP 120/52
[2019-09-30] MEDS: NEPRO 1,000 ML BOTTLE GT PRN (01:08)
[2019-09-30] MEDS: IV NS 0.9% 1,000 ML IV PRN ×2 (01:09→14:00)
[2019-09-30] MEDS: IPRATROPIUM NEB FS 0.5 MG/2.5 ML AMPUL.NEB NEB SCH ×4 (01:39→20:07)
[2019-09-30] MEDS: ALBUTEROL FS 2.5 MG/3 ML VIAL.NEB NEB SCH ×4 (01:39→20:07)
[2019-09-30 03:55] VITALS: BP 113/56
[2019-09-30] MEDS: BLOOD SUGAR DIAGNOSTIC 1 EACH STRIP IN SCH ×4 (05:06→23:42)
[2019-09-30] MEDS: INSULIN REGULAR, HUMAN 100 UNIT/ML 3 ML VIAL SQ PRN ×4 (05:09→23:45)
--- NOTE | 2019-09-30 06:37 | NUR ---
RN CLOSING NOTES Patient asleep, easily awaken. On vent with settings noted. Suctioned PRN, no SOB/respiratory distress noted at this time. Due meds given as ordered. On tele monitor with controlled A-Fib noted. No new complaints made. Kept on bed clean, dry and comfortable. On fall and aspiration precautions. Endorsed.
[2019-09-30] MEDS: ACETYLCYSTEINE 10% SOLN 400 MG/4 ML VIAL NEB SCH ×3 (07:26→23:48)
--- NOTE | 2019-09-30 07:50 | NUR ---
TELE/RN OPENING NOTES RECEIVED PATIENT IN BED, AWAKE, ALERT AND ORIENTED. ON CONTACT PRECAUTION FOR MRSA NARES. PATIENT ON VENTILATOR AT THE PRESCRIBED SETTING. NO SIGNS OF RESPIRATORY DISTRESS, NO SIGNS OF SOB, AND WITH EVEN NON-LABORED BREATHING. IV ACCESS INTACT, IN PLACE, AND PATENT. ON POWER MANAGER WITH READING OF AFIB 76 WITH OCCASIONAL PVC. SAFETY PRECAUTIONS IN PLACE WITH BED IN THE LOWEST POSITION, BILATERAL SIDE RAILS UP, BED LOCKED, AND CALL LIGHT WITHIN EASY REACH OF THE PATIENT. WILL CONTINUE TO MONITOR.
[2019-09-30 08:00] VITALS: BP 110/48
[2019-09-30 08:58] LABS: BASOPHILS % (AUTO) 0.5 % (0.0-2.0); EOSINOPHILS % (AUTO) 10.3 % (0.0-6.0); HEMATOCRIT 27 % (39-51); HEMOGLOBIN 8.5 g/dL (13.5-17.5); LYMPHOCYTES # (AUTO) 2.3 /CMM (0.8-4.8); LYMPHOCYTES % (AUTO) 21.5 % (20.0-44.0); MEAN CORPUSCULAR HGB CONC 31 g/dl (31.0-36.0); MEAN CORPUSCULAR VOLUME 96 fL (80-96); MONOCYTES # (AUTO) 1.3 /CMM (0.1-1.30); MONOCYTES % (AUTO) 11.9 % (2.0-12.0); NEUTROPHILS # (AUTO) 5.9 /CMM (1.8-8.9); NEUTROPHILS % (AUTO) 55.8 % (43.0-81.0); PLATELET COUNT (AUTO) 225 /CMM (150-450); RED BLOOD CELL COUNT(AUTO) 2.84 MIL/uL (4.5-6.0); WHITE BLOOD COUNT (AUTO) 10.6 K/uL (4.3-11.0)
[2019-09-30] MEDS: LEVOTHYROXINE SODIUM 88 MCG TABLET GT SCH (08:59)
[2019-09-30] MEDS: SUCRALFATE 1 G/10 ML UDC GT SCH (08:59)
[2019-09-30] MEDS: DOCUSATE SODIUM LIQ 100 MG/10 ML UDC GT SCH ×2 (08:59→17:09)
[2019-09-30] MEDS: MULTIVIT W/MINERALS 1 TAB TABLET GT SCH (08:59)
[2019-09-30] MEDS: DILTIAZEM HCL CD 240 MG PO SCH (09:00)
[2019-09-30] MEDS: MINERAL OIL/PETROLATUM,WHITE 120 GM JAR TP SCH (09:01)
[2019-09-30] MEDS: NYSTATIN OINT 100000 UNIT/G 15 GM TUBE TP SCH ×3 (09:01→17:09)
[2019-09-30] MEDS: CLOTRIMAZOLE 1% 15 GM TUBE TP SCH ×2 (09:01→17:09)
[2019-09-30 09:15] LABS: CALCIUM, SERUM 9.2 mg/dL (8.5-10.1); CARBON DIOXIDE 31 mmol/L (21-32); CHLORIDE 106 mmol/L (98-107); GLUCOSE 197 mg/dL (74-106); MAGNESIUM 3.1 mg/dL (1.8-2.4); PHOSPHORUS 6.5 mg/dL (2.5-4.9); SODIUM SERUM 144 mmol/L (136-145)
[2019-09-30 09:35] LABS: CREATININE 8.9 mg/dL (0.6-1.3); UREA NITROGEN, BLOOD 131 mg/dL (7-18)
[2019-09-30] MEDS: BUDESONIDE RESPULE INH 0.5 MG/2 ML AMPUL.NEB IH SCH ×2 (11:33→20:07)
[2019-09-30] MEDS ORDERED: MEROPENEM 500 MG in IV NS 0.9% 50 ML IV SCH (15:00)
--- NOTE | 2019-09-30 15:00 | NUR ---
TELE/RN NOTES PATIENT IS FOR PERMACATH INSERTION TOMORROW, CONSENT TELEPHONE SIGN BY SENTHIL HARSHILPHI .CONSENT ATTACHED TO THE CHART.
[2019-09-30 16:00] VITALS: BP 124/58
--- NOTE | 2019-09-30 17:30 | NUR ---
TELE/RN NOTES BS 178MG/DL, 3 UNIT INSULIN WAS GIVEN
[2019-09-30] MEDS ORDERED: FEE PK DOSING 1 MIN EA MC ONE (18:16)
--- NOTE | 2019-09-30 18:24 | NUR ---
TELE/RN CLOSING NOTES PATIENT IN BED, AWAKE, ALERT AND ORIENTED. ON CONTACT PRECAUTION FOR MRSA NARES. PATIENT ON VENTILATOR AT THE PRESCRIBED SETTING. NO SIGNS OF RESPIRATORY DISTRESS, NO SIGNS OF SOB, AND WITH EVEN NON-LABORED BREATHING. IV ACCESS INTACT, IN PLACE, AND PATENT. ON SHANK TURNER WITH READING OF AFIB 83-84. SEEN AND EXAMINED BY MD WITH ORDERS MADE AND CARRIED OUT. SAFETY PRECAUTIONS IN PLACE WITH BED IN THE LOWEST POSITION, BILATERAL SIDE RAILS UP, BED LOCKED, AND CALL LIGHT WITHIN EASY REACH OF THE PATIENT. WILL ENDORSED TO BLOW MOLDING MACHINE TENDER FOR REESE.
--- NOTE | 2019-09-30 19:10 | NUR ---
RN OPENING NOTES Patient asleep, easily awaken. On GTF infusing well, no N/V noted. With FC with clear yellow urine output noted. On vent, settings noted, no SOB/respiratory distress noted. Kept on bed clean, dry and comfortable. On fall and aspiration precautions. Will continue to monitor accordingly.
[2019-09-30 20:00] VITALS: BP 117/70
[2019-09-30] MEDS ORDERED: VANCOMYCIN 1.25 GM in IV D5W 250 ML IV ONE (20:00)
[2019-09-30 20:04] VITALS: BP 117/70
[2019-09-30] MEDS: LORAZEPAM 1 MG TABLET GT PRN (21:53)
[2019-09-30] MEDS: ATORVASTATIN 10 MG TABLET GT SCH (21:54)
[2019-09-30] MEDS: QUETIAPINE FUMARATE 100 MG TABLET GT SCH (21:54)
[2019-09-30] MEDS: TAMSULOSIN 0.4 MG CAP.SR.24H GT SCH (21:54)
[2019-10-01 00:02] VITALS: BP 128/63
[2019-10-01] MEDS: IPRATROPIUM NEB FS 0.5 MG/2.5 ML AMPUL.NEB NEB SCH ×4 (02:27→19:58)
[2019-10-01] MEDS: ALBUTEROL FS 2.5 MG/3 ML VIAL.NEB NEB SCH ×4 (02:27→19:57)
[2019-10-01 04:30] VITALS: BP 109/45
[2019-10-01] MEDS: BLOOD SUGAR DIAGNOSTIC 1 EACH STRIP IN SCH ×4 (05:53→23:44)
--- NOTE | 2019-10-01 06:39 | NUR ---
RN CLOSING NOTES Patient asleep, easily awaken. On vent, setting noted. Suctioned PRN, no SOB/respiratory distress noted at this time. Patient for HD Catheter placement today. GTF held, tube clamped. NPO as ordered. All due meds given as ordered. All nursing needs attended. Kept on bed clean, dry and comfortable. On fall and aspiration precautions. Call light within easy reach. Endorsed.
[2019-10-01] MEDS: IV NS 0.9% 1,000 ML IV PRN ×2 (06:42→17:13)
[2019-10-01 07:41] LABS: CALCIUM, SERUM 9.3 mg/dL (8.5-10.1); CARBON DIOXIDE 26 mmol/L (21-32); CHLORIDE 104 mmol/L (98-107); GLUCOSE 162 mg/dL (74-106); POTASSIUM 5.6 mmol/L (3.5-5.1); SODIUM SERUM 142 mmol/L (136-145)
[2019-10-01] MEDS: ACETYLCYSTEINE 10% SOLN 400 MG/4 ML VIAL NEB SCH ×3 (07:41→23:17)
[2019-10-01] MEDS: BUDESONIDE RESPULE INH 0.5 MG/2 ML AMPUL.NEB IH SCH ×2 (07:42→20:14)
[2019-10-01 07:44] LABS: UREA NITROGEN, BLOOD 135 mg/dL (7-18)
[2019-10-01 07:45] LABS: CREATININE 9.7 mg/dL (0.6-1.3)
--- NOTE | 2019-10-01 07:45 | NUR ---
RN OPENING NOTE Patient is resting in bed, A/O x2, presents with secretion, patient able to expectorate, small and white mucus. Patient also suctioned PRN. Patient is on mechanical vent Portex #9 AC 18 TV 600 FiO2 40% PEEP 5 saturating 92%. IV line in the right wrist noted running NS @ 75ml/hour. G-tube feeding aspirated 10ml, clamped at 0600 due to NPO status, perma-cath placement scheduled for today. Bed is in lowest position, side rails x3 in upright position, call light is within reach, fall safety and aspiration precautions enforced. Will continue with plan of care.
[2019-10-01 08:00] VITALS: BP 119/43
[2019-10-01] MEDS: NYSTATIN OINT 100000 UNIT/G 15 GM TUBE TP SCH ×3 (09:00→17:13)
[2019-10-01] MEDS: CLOTRIMAZOLE 1% 15 GM TUBE TP SCH ×2 (09:00→17:13)
[2019-10-01] MEDS: DOCUSATE SODIUM LIQ 100 MG/10 ML UDC GT SCH ×2 (09:00→17:14)
[2019-10-01] MEDS: MINERAL OIL/PETROLATUM,WHITE 120 GM JAR TP SCH (09:00)
[2019-10-01] MEDS: SUCRALFATE 1 G/10 ML UDC GT SCH (09:33)
[2019-10-01] MEDS: LEVOTHYROXINE SODIUM 88 MCG TABLET GT SCH (09:37)
[2019-10-01] MEDS: DILTIAZEM HCL CD 240 MG PO SCH (09:37)
[2019-10-01] MEDS: MULTIVIT W/MINERALS 1 TAB TABLET GT SCH (09:37)
[2019-10-01] MEDS: INSULIN REGULAR, HUMAN 100 UNIT/ML 3 ML VIAL SQ PRN ×3 (12:07→23:46)
--- NOTE | 2019-10-01 12:07 | NUR ---
RN NOTE NON-ADMIN INSULIN DUE TO GTUBE FEEDING HELD.
--- NOTE | 2019-10-01 12:48 | NUR ---
RN NOTE MD aware of potassium of 5.6. Stated is expected to have HD to correct after perma-cath placement. No new orders at this time.
[2019-10-01] MEDS ORDERED: HEPARIN SODIUM, PORCINE 1,000 UNIT/ML VIAL ONE (14:45)
[2019-10-01] MEDS ORDERED: LIDOCAINE HCL/MPF 1% 30 ML VIAL IJ ONE (14:45)
--- NOTE | 2019-10-01 15:10 | NUR ---
RN NOTE Patient is leaving for surgery (perma-cath placement) at this time.
--- NOTE | 2019-10-01 15:26 | NUR ---
PT TRANSPORTED TO OR @1500. HHN TX NON ADMINISTERED. NO SIGNS OF RESPIRATORY DISTRESS OR SOB. Addendum: 10/01/19 at 1528 by RACHAEL PATEL RT Amended: Links added.
[2019-10-01 16:00] VITALS: BP 130/66
--- NOTE | 2019-10-01 16:27 | NUR ---
RN NOTE Patient arrived from surgery, vital signs BP 104/54, HR 110, RR 18, O2 95% on mechanical vent. butt sawyer at the bedside, INVASIVE PHYSICIAN at the bedside. Will continue to monitor. Addendum: 10/01/19 at 1859 by SPARKLE MANZANO RN post-op orders: resume all pre-op meds, resume feedings, stat CXR, ok to use line.
--- NOTE | 2019-10-01 17:00 | NUR ---
RN NOTE Patient saturating 88-89%. RT increased FiO2 to 50%. Patient remains stable saturating 95-96%.
[2019-10-01] MEDS: NEPRO 1,000 ML BOTTLE GT PRN (17:13)
--- NOTE | 2019-10-01 18:32 | NUR ---
RN NOTE HD complete 1.5 L out. No vanco to be given due to elevated vanco trough of 21. Pharmacy aware.
--- NOTE | 2019-10-01 19:30 | NUR ---
MANAGER PRIVACY OPENING NOTES RECEIVED PATIENT IN BED ALERT AND ORIENTED X 3. VERBALLY RESPONSIVE AND ABLE TO FOLLOW DIRECTIONS. TRACHEOSTOMY INTACT CONNECTED TO MECHANICAL VENTILATOR, CURRENT SETTINGS TOLERATING WELL. LATEST SPO2 95%. BREATHING REGULAR AND UNLABORED. LEFT HAND G22 IV LINE INTACT AND PATENT, INFUSING WELL WITH NO BLEEDING OR S/S OF INFILTRATION NOTED. ON CARDIAC MONITORING WITH ATRIAL FIBRILLATION AT 91bpm. GTUBE PATENT WITH NO RESIDUAL ASPIRATED. RIGHT IJ PERMACATH INTACT WITH NO ACTIVE BLEEDING SEEN. NO COMPLAINTS OF PAIN/DISCOMFORT REPORTED AT THIS TIME. ON ASPIRATION PRECAUTION. BED LOW AND LOCKED ON SEMI FOWLERS POSITION. CALL LIGHT IN REACH. WILL CONTINUE TO MONITOR.
--- NOTE | 2019-10-01 19:42 | NUR ---
RN CLOSING NOTE Patient is resting in bed, A/O x2, presents with secretion, patient able to expectorate, small and white mucus. Patient also suctioned PRN. Patient is on mechanical vent Portex #9 AC 18 TV 600 FiO2 50% PEEP 5 saturating 92%. IV line in the right wrist noted running NS @ 75ml/hour. G-tube feeding aspirated 30ml, running at 45ml/hour. S/P HD today with 1.5 L out. All patient needs met, all due medications given, patient kept clean and dry throughout shift. Bed is in lowest position, side rails x3 in upright position, call light is within reach, fall safety and aspiration precautions enforced. Will endorse to cloth framer.
[2019-10-01 20:00] VITALS: BP 96/57
[2019-10-01 20:05] VITALS: BP 96/57
[2019-10-01] MEDS: MEROPENEM 500 MG in IV NS 0.9% 50 ML IV SCH (21:22)
[2019-10-01] MEDS: TAMSULOSIN 0.4 MG CAP.SR.24H GT SCH (21:40)
[2019-10-01] MEDS: ATORVASTATIN 10 MG TABLET GT SCH (21:40)
[2019-10-01] MEDS: QUETIAPINE FUMARATE 100 MG TABLET GT SCH (21:40)
--- NOTE | 2019-10-02 | NUR ---
MILL REPRESENTATIVE NOTES BS 172mg/dl, 3UNITS REGULAR INSULIN GIVEN SQ. CURRENT FEEDING TOLERATING WELL. MAINTAINED ON ASPIRATION PRECAUTION.
[2019-10-02 00:06] VITALS: BP 92/60
[2019-10-02] MEDS: ALBUTEROL FS 2.5 MG/3 ML VIAL.NEB NEB SCH ×4 (01:37→19:39)
[2019-10-02] MEDS: IPRATROPIUM NEB FS 0.5 MG/2.5 ML AMPUL.NEB NEB SCH ×4 (01:37→19:39)
[2019-10-02 04:16] VITALS: BP 93/61
[2019-10-02] MEDS: BLOOD SUGAR DIAGNOSTIC 1 EACH STRIP IN SCH ×3 (06:06→18:05)
[2019-10-02] MEDS: INSULIN REGULAR, HUMAN 100 UNIT/ML 3 ML VIAL SQ PRN ×2 (06:07→18:05)
--- NOTE | 2019-10-02 06:30 | NUR ---
DIESEL MECHANIC HELPER CLOSING NOTES PATIENT IN BED ALERT AND ORIENTED X 3. TRACHEOSTOMY INTACT CONNECTED TO MECHANICAL VENTILATOR, CURRENT SETTINGS TOLERATING WELL WITH NO EPISODE OF DISTRESS NOTED THE WHOLE SHIFT. LEFT FOREARM G22 IV LINE PATENT AND INFUSING WELL. MAINTAINED ON CARDIAC MONITORING WITH ATRIAL FIBRILLATION AT 93bpm. GTUBE PATENT ON-GOING FEEDING TOLERATING WELL. NO COMPLAINTS OF PAIN/DISCOMFORT REPORTED. BED LOW AND LOCKED ON SEMI FOWLERS POSITION. CALL LIGHT IN REACH. WILL ENDORSE TO MORNING SHIFT FOR REESE.
[2019-10-02] MEDS: LEVOTHYROXINE SODIUM 88 MCG TABLET GT SCH (07:30)
--- NOTE | 2019-10-02 07:43 | NUR ---
Patient updated on plan of care . Bedside HD started
[2019-10-02] MEDS: ACETYLCYSTEINE 10% SOLN 400 MG/4 ML VIAL NEB SCH ×3 (07:49→22:37)
[2019-10-02 08:00] VITALS: BP 114/61
[2019-10-02 08:37] LABS: CARBON DIOXIDE 32 mmol/L (21-32); CHLORIDE 103 mmol/L (98-107); GLUCOSE 204 mg/dL (74-106); POTASSIUM 5.2 mmol/L (3.5-5.1); SODIUM SERUM 142 mmol/L (136-145)
[2019-10-02 08:44] LABS: CREATININE 8.5 mg/dL (0.6-1.3); UREA NITROGEN, BLOOD 109 mg/dL (7-18)
[2019-10-02] MEDS: DILTIAZEM HCL CD 240 MG PO SCH (09:00)
[2019-10-02] MEDS: MULTIVIT W/MINERALS 1 TAB TABLET GT SCH (09:00)
[2019-10-02] MEDS: DOCUSATE SODIUM LIQ 100 MG/10 ML UDC GT SCH ×2 (09:00→18:05)
[2019-10-02] MEDS: SUCRALFATE 1 G/10 ML UDC GT SCH (09:00)
[2019-10-02] MEDS: CLOTRIMAZOLE 1% 15 GM TUBE TP SCH ×2 (11:56→17:59)
[2019-10-02] MEDS: MINERAL OIL/PETROLATUM,WHITE 120 GM JAR TP SCH (11:56)
[2019-10-02] MEDS: NYSTATIN OINT 100000 UNIT/G 15 GM TUBE TP SCH ×3 (11:56→18:13)
--- NOTE | 2019-10-02 15:00 | NUR ---
Thoracentesis L lung with output 1650 ml. Fluid sent to lab. Patient is stable , no bleeding at the side
[2019-10-02 16:00] VITALS: BP 114/62
[2019-10-02] MEDS: ALBUTEROL FS 2.5 MG/3 ML VIAL.NEB NEB PRN (16:00)
--- NOTE | 2019-10-02 17:36 | NUR ---
RT NOTE PATIENT FOUND ON MECHANICAL VENT WITH ORDERED SETTINGS, TOLERATING WELL. ALARMS ON AND AUDIBLE. VENT PLUGGED IN TO THE RED OUTLET. TRACH TUBE IN PLACE, PATENT, AND SECURED WITH TRACH TIE. AMBU BAG AND BACK UP TRACH BY THE BEDSIDE. NO DISTRESS AT THIS TIME. MONITOR THROUGHOUT SHIFT.
--- NOTE | 2019-10-02 18:00 | NUR ---
Vancomycin to be given after HD is not available. Called pharmacy and informed Anita. Per Anita they will send it
--- NOTE | 2019-10-02 19:00 | NUR ---
Patient awake . alert and oriented x2-3 , able to make needs known. All needs attended , turned and repositioned Q2HR, kept clean and dry. IV line intact and patent . G-tube Feeding as ordered, fluid running as ordered,. Will endorse to next shift for REESE.
[2019-10-02] MEDS: BUDESONIDE RESPULE INH 0.5 MG/2 ML AMPUL.NEB IH SCH (19:39)
--- NOTE | 2019-10-02 20:00 | NUR ---
RN NOTES RECEIVED PT. AWAKE ON BED, A/OX3, VENT DEPENDENT, G-TUBE WAS CLOGGED, A-FIB ON TELE MONITOR HR 103, NOT IN DISTRESS, NOT IN PAIN, SIDERAILSUPX2, CONTINUE TO MONITOR
[2019-10-02] MEDS: MEROPENEM 500 MG in IV NS 0.9% 50 ML IV SCH (20:19)
[2019-10-02 20:31] VITALS: BP 96/56
--- NOTE | 2019-10-02 20:43 | NUR ---
RT NOTE PT RECEIVED TRACHED ON MECHANICAL VENTILATION. AMBU BAG @ BEDSIDE. SX DONE, TRACH SECURED AND PATENT. ALARMS ON AND AUDIBLE. NO DISTRESS NOTED. CONT. PULSE OX CONNECTED. WILL MONITOR T/O SHIFT. Addendum: 10/02/19 at 2042 by INA JEAN RT Amended: Links added.
[2019-10-02] MEDS: TAMSULOSIN 0.4 MG CAP.SR.24H GT SCH (21:15)
[2019-10-02] MEDS: VANCOMYCIN 500 MG in IV D5W 100 ML IV PRN (21:15)
[2019-10-02] MEDS: ATORVASTATIN 10 MG TABLET GT SCH (21:15)
[2019-10-02] MEDS: IV NS 0.9% 1,000 ML IV PRN (21:16)
--- NOTE | 2019-10-02 21:30 | NUR ---
RN NOTES NEW IV LINE INSERTED ON THE LEFT FOREARM # 20
[2019-10-02] MEDS: QUETIAPINE FUMARATE 100 MG TABLET GT SCH (21:41)
--- NOTE | 2019-10-03 | NUR ---
RN NOTES BLOOD SUGAR-158, REFUSED INSULIN COVERAGE
[2019-10-03] MEDS: BLOOD SUGAR DIAGNOSTIC 1 EACH STRIP IN SCH ×4 (00:19→17:54)
[2019-10-03] MEDS: IPRATROPIUM NEB FS 0.5 MG/2.5 ML AMPUL.NEB NEB SCH ×4 (00:27→19:47)
[2019-10-03] MEDS: ALBUTEROL FS 2.5 MG/3 ML VIAL.NEB NEB SCH ×4 (00:27→19:47)
[2019-10-03 00:49] VITALS: BP 97/49
[2019-10-03] MEDS: ACETAMINOPHEN 325 MG TABLET PO PRN ×2 (01:46→22:24)
[2019-10-03 04:19] VITALS: BP 116/43
[2019-10-03] MEDS: NEPRO 1,000 ML BOTTLE GT PRN (04:53)
--- NOTE | 2019-10-03 06:30 | NUR ---
RN NOTES BLOOD SUGAR-150, PT REFUSED INSULIN, MORNING CARE RENDERED, NOT IN DISTRESS, NO PAIN NOTED, PT. NEEDS ATTENDED
--- NOTE | 2019-10-03 07:30 | NUR ---
AUTOMOTIVE LIGHT MECHANIC NOTES PATIENT RESTING IN BED, HOB AT SEMI FOWLERS, NO RESPIRATORY DISTRESS, ON VENT WITH PRESCRIBED SETTINGS. PATIENT WITH NO C/O PAIN AT THIS TIME. SKIN WARM TO TOUCH, IV ACCESS SITE INTACT AND PATENT. GT INTACT, NEPRO RUNNING AT 45ML/HR, TOLERATING WELL. F/C INTACT AND DRAINING YELLOW URINE. PATIENT'S NEEDS ATTENDED, BED ON LOWEST LOCKED POSITION, CALL LIGHT WITHIN REACH. WILL CONTINUE TO MONITOR.
[2019-10-03] MEDS: LEVOTHYROXINE SODIUM 88 MCG TABLET GT SCH (07:57)
[2019-10-03 08:00] VITALS: BP 115/60
[2019-10-03] MEDS: BUDESONIDE RESPULE INH 0.5 MG/2 ML AMPUL.NEB IH SCH ×2 (08:08→19:48)
[2019-10-03] MEDS: ACETYLCYSTEINE 10% SOLN 400 MG/4 ML VIAL NEB SCH ×3 (08:09→23:45)
[2019-10-03 08:39] LABS: CALCIUM, SERUM 8.9 mg/dL (8.5-10.1); CARBON DIOXIDE 27 mmol/L (21-32); CHLORIDE 103 mmol/L (98-107); GLUCOSE 180 mg/dL (74-106); POTASSIUM 4.7 mmol/L (3.5-5.1); SODIUM SERUM 141 mmol/L (136-145)
[2019-10-03 08:48] LABS: CREATININE 7.8 mg/dL (0.6-1.3); UREA NITROGEN, BLOOD 98 mg/dL (7-18)
[2019-10-03] MEDS: SUCRALFATE 1 G/10 ML UDC GT SCH (08:51)
[2019-10-03] MEDS: DOCUSATE SODIUM LIQ 100 MG/10 ML UDC GT SCH ×2 (08:52→16:25)
[2019-10-03] MEDS: CLOTRIMAZOLE 1% 15 GM TUBE TP SCH ×2 (08:53→16:25)
[2019-10-03] MEDS: MINERAL OIL/PETROLATUM,WHITE 120 GM JAR TP SCH (08:53)
[2019-10-03] MEDS: DILTIAZEM HCL CD 240 MG PO SCH (08:53)
[2019-10-03] MEDS: MULTIVIT W/MINERALS 1 TAB TABLET GT SCH (08:53)
[2019-10-03] MEDS: NYSTATIN OINT 100000 UNIT/G 15 GM TUBE TP SCH ×3 (08:54→16:26)
[2019-10-03] MEDS: VANCOMYCIN 500 MG in IV D5W 100 ML IV PRN (12:30)
[2019-10-03] MEDS: INSULIN REGULAR, HUMAN 100 UNIT/ML 3 ML VIAL SQ PRN ×3 (12:33→23:43)
[2019-10-03 15:54] VITALS: BP 107/71
--- NOTE | 2019-10-03 19:30 | NUR ---
BUNDLE PERSON PM NOTES REPORT RECIEVED FROM EUGENIO BURTON. VANCOMYCIN NOT GIVEN POST HD. REQUESTED FOR HER TO HANG. PATIENT IN BED, HOB AT SEMI FOWLERS, NO RESPIRATORY DISTRESS, ON VENT WITH PRESCRIBED SETTINGS. PATIENT DENIES PAIN AT THIS TIME. SKIN WARM TO TOUCH, IV ACCESS SITE INTACT AND PATENT. GT INTACT, NEPRO RUNNING AT 45ML/HR, TOLERATING WELL. F/C INTACT AND DRAINING YELLOW URINE. BED ON LOWEST LOCKED POSITION, CALL LIGHT WITHIN REACH. WILL CONTINUE TO MONITOR.
[2019-10-03 20:16] VITALS: BP 113/61
[2019-10-03] MEDS: MEROPENEM 500 MG in IV NS 0.9% 50 ML IV SCH (21:55)
[2019-10-03] MEDS: ATORVASTATIN 10 MG TABLET GT SCH (21:57)
[2019-10-03] MEDS: QUETIAPINE FUMARATE 100 MG TABLET GT SCH (21:57)
[2019-10-03] MEDS: TAMSULOSIN 0.4 MG CAP.SR.24H GT SCH (21:57)
--- NOTE | 2019-10-03 22:25 | NUR ---
TYELENOL ADMINISTERED PRN PATIENT REQUEST FOR LEFT FLANK PAIN RATED 3/10.
[2019-10-04 00:01] VITALS: BP 106/44
[2019-10-04] MEDS: IPRATROPIUM NEB FS 0.5 MG/2.5 ML AMPUL.NEB NEB SCH ×4 (01:57→20:17)
[2019-10-04] MEDS: ALBUTEROL FS 2.5 MG/3 ML VIAL.NEB NEB SCH ×4 (01:57→20:17)
--- NOTE | 2019-10-04 02:00 | NUR ---
pt has low urine output, reports discomfort. patient complaingin of feeling like urinary bladder full. causing mild discomofort investigated fc and ound to only have 60 ml in it bladder scan check reveals 60 ml of urine in bladder. fc readjusted with baloon delation and reinflation wich produced urine output of 180. pt reports relef will cont to monitor.
[2019-10-04 04:00] VITALS: BP 107/60
[2019-10-04] MEDS: BLOOD SUGAR DIAGNOSTIC 1 EACH STRIP IN SCH ×4 (06:41→17:41)
[2019-10-04] MEDS: INSULIN REGULAR, HUMAN 100 UNIT/ML 3 ML VIAL SQ PRN ×3 (06:47→17:52)
[2019-10-04] MEDS: ACETYLCYSTEINE 10% SOLN 400 MG/4 ML VIAL NEB SCH ×3 (07:41→23:21)
[2019-10-04] MEDS: BUDESONIDE RESPULE INH 0.5 MG/2 ML AMPUL.NEB IH SCH ×2 (07:41→20:17)
[2019-10-04] MEDS: LEVOTHYROXINE SODIUM 88 MCG TABLET GT SCH (07:56)
[2019-10-04 08:00] VITALS: BP 102/52
--- NOTE | 2019-10-04 08:00 | NUR ---
RN OPENING NOTES RECEIVED PATIENT FROM GEODETIC TECHNICIAN NURSE IN BED, AWAKE, HIGH BURNHAM'S POSITION, TRACH CONNECTED VIA PORTABLE MECH VENT, UNLABORED BREATHING, S/P CHEST WALL PORTACATH, LFA 20G, SIDE RAILS UP. Addendum: 10/04/19 at 1518 by MICHAEL REES RN WITH GT TUBE FEEDING NEPRO AT 46ML/HR. INFUSING WELL.
[2019-10-04 08:02] LABS: CALCIUM, SERUM 9.1 mg/dL (8.5-10.1); CARBON DIOXIDE 31 mmol/L (21-32); CHLORIDE 103 mmol/L (98-107); CREATININE 6.8 mg/dL (0.6-1.3); GLUCOSE 141 mg/dL (74-106); POTASSIUM 4.5 mmol/L (3.5-5.1); SODIUM SERUM 142 mmol/L (136-145)
[2019-10-04 08:04] LABS: UREA NITROGEN, BLOOD 88 mg/dL (7-18)
[2019-10-04] MEDS: MULTIVIT W/MINERALS 1 TAB TABLET GT SCH (08:44)
[2019-10-04] MEDS: DOCUSATE SODIUM LIQ 100 MG/10 ML UDC GT SCH ×2 (08:44→16:49)
[2019-10-04] MEDS: SUCRALFATE 1 G/10 ML UDC GT SCH (08:47)
[2019-10-04] MEDS: DILTIAZEM HCL CD 240 MG PO SCH (08:54)
[2019-10-04] MEDS: MINERAL OIL/PETROLATUM,WHITE 120 GM JAR TP SCH (08:56)
[2019-10-04] MEDS: NYSTATIN OINT 100000 UNIT/G 15 GM TUBE TP SCH ×3 (08:58→16:52)
[2019-10-04] MEDS: CLOTRIMAZOLE 1% 15 GM TUBE TP SCH ×2 (08:58→16:51)
--- NOTE | 2019-10-04 09:20 | NUR ---
INFORMATION SENT:FACESHEET, PROGRESS NOTES 10/02, 24HRS REPORT,UR 10/02. FAXED TO:[facility] [phone] [place] [phone] FAX SENT BY GINO
--- NOTE | 2019-10-04 12:30 | NUR ---
NS RN NOTES 1230 HD DONE. 2L OUT. BP- 114/55, HR- 92.
[2019-10-04 16:00] VITALS: BP 83/51
--- NOTE | 2019-10-04 16:45 | NUR ---
MS RN NOTES SPOKED TO KEVIN FROM PHARMACY. HE SAID THAT IT IS OK TO GIVE VANCOMYCIN.
[2019-10-04] MEDS: VANCOMYCIN 500 MG in IV D5W 100 ML IV PRN (16:53)
--- NOTE | 2019-10-04 18:56 | NUR ---
MS RN CLOSING NOTES ENDORSED PATIENT IN BED, AWAKE, CONSCIOUS, A/O X 3, ATTACHED TO PORTABLE MECH VENT VIA TRACH, PORTEX 9, AC 18, TV 600, FIO2 50%, LFA 20G SL, NO REDNESS OR INFILTRATION NOTED, GT TUBE FEEDING NEPHRO AT 45ML/HR INFUSING WELL, SIDE RAILS UP FOR SAFETY.
--- NOTE | 2019-10-04 19:10 | NUR ---
SPECIAL CRIMES INVESTIGATOR NOTES RECEIVED PT IN BED AWAKE AND ABLE TO MAKE NEEDS KNOWN. PT A/O X 3. RESPIRATIONS EVEN AND UNLABORED WITH NO S/S OF ACUTE DISTRESS OR SOB NOTED. PT NOTED WITH LFA 20G SL. PT NOTED WITH GT TUBE FEEDING NEPHRO AT 45ML/HR INFUSING WELL. NO COMPLAINTS OF PAIN AT THIS TIME. SAFETY MEASURES IN PLACE WITH BED IN LOWEST LOCKED POSITION WITH SIDE RAILS UP X2. CALL LIGHT WITHIN REACH. WILL CONTINUE TO MONITOR.
[2019-10-04 20:00] VITALS: BP 115/61
[2019-10-04] MEDS: MEROPENEM 500 MG in IV NS 0.9% 50 ML IV SCH (21:42)
[2019-10-04] MEDS: TAMSULOSIN 0.4 MG CAP.SR.24H GT SCH (22:43)
[2019-10-04] MEDS: QUETIAPINE FUMARATE 100 MG TABLET GT SCH (22:43)
[2019-10-04] MEDS: ATORVASTATIN 10 MG TABLET GT SCH (22:43)
[2019-10-05] VITALS (7 sets, daily range): BP systolic 104–124; BP diastolic 54–71
[2019-10-05] MEDS: BLOOD SUGAR DIAGNOSTIC 1 EACH STRIP IN SCH ×4 (01:00→17:39)
[2019-10-05] MEDS: INSULIN REGULAR, HUMAN 100 UNIT/ML 3 ML VIAL SQ PRN ×2 (01:01→06:40)
[2019-10-05] MEDS: IPRATROPIUM NEB FS 0.5 MG/2.5 ML AMPUL.NEB NEB SCH ×4 (01:45→20:18)
[2019-10-05] MEDS: ALBUTEROL FS 2.5 MG/3 ML VIAL.NEB NEB SCH ×4 (01:45→20:18)
[2019-10-05] MEDS: NEPRO 1,000 ML BOTTLE GT PRN (06:07)
--- NOTE | 2019-10-05 06:57 | NUR ---
HOIST OPERATOR NOTES PT IN BED AWAKE AND ABLE TO MAKE NEEDS KNOWN. PT A/O X 3. RESPIRATIONS EVEN AND UNLABORED WITH NO S/S OF ACUTE DISTRESS OR SOB NOTED THROUGHOUT SHIFT. PT NOTED WITH LFA 20G SL. PT NOTED WITH GT TUBE FEEDING NEPHRO AT 45ML/HR INFUSING WELL. NO COMPLAINTS OF PAIN AT THIS TIME. PT KEPT CLEAN, DRY, AND COMFORTABLE. SAFETY MEASURES IN PLACE WITH BED IN LOWEST LOCKED POSITION WITH SIDE RAILS UP X2. CALL LIGHT WITHIN REACH. WILL ENDORSE TO ONCOMING NURSE FOR REESE.
--- NOTE | 2019-10-05 07:34 | NUR ---
PAID SEARCH SPECIALIST OPENING NOTES PATIENT IN BED RESTING COMFORTABLY. PATIENT IN NO ACUTE DISTRESS. NO SOB NOTED. PATIENT BREATHING IS EVEN AND UNLABORED. PATIENT ON VENT, TOLERATING VENT SETTINGS WELL. PATIENT HOB IS ELEVATED. PATIENT BED ALARM IS ON. SAFETY PRECAUTIONS IN PLACE. PATIENT WITH GTUBE FEEDINGS, NEPHRO AT 45ML/HR INFUSING WELL. PATIENT BED IS LOCKED AND IN LOWEST POSITION. CALL LIGHT WITHIN REACH. WILL CONTINUE TO MONITOR. Addendum: 10/05/19 at 0746 by MARY ANN MICHAELS RN PAID SEARCH SPECIALIST OPENING NOTES PATIENT IN BED RESTING COMFORTABLY. PATIENT IN NO ACUTE DISTRESS. NO SOB NOTED. PATIENT BREATHING IS EVEN AND UNLABORED. PATIENT ON CARDIAC MONITORING READING AFIB HR 82. PATIENT ON VENT, TOLERATING VENT SETTINGS WELL. PATIENT HOB IS ELEVATED. PATIENT BED ALARM IS ON. SAFETY PRECAUTIONS IN PLACE. PATIENT WITH GTUBE FEEDINGS, NEPHRO AT 45ML/HR INFUSING WELL. PATIENT BED IS LOCKED AND IN LOWEST POSITION. CALL LIGHT WITHIN REACH. WILL CONTINUE TO MONITOR.
[2019-10-05 07:41] LABS: CALCIUM, SERUM 9.2 mg/dL (8.5-10.1); CARBON DIOXIDE 31 mmol/L (21-32); CHLORIDE 104 mmol/L (98-107); CREATININE 5.9 mg/dL (0.6-1.3); GLUCOSE 155 mg/dL (74-106); POTASSIUM 4.3 mmol/L (3.5-5.1); SODIUM SERUM 142 mmol/L (136-145); UREA NITROGEN, BLOOD 70 mg/dL (7-18)
[2019-10-05] MEDS: LEVOTHYROXINE SODIUM 88 MCG TABLET GT SCH (08:06)
[2019-10-05] MEDS: MULTIVIT W/MINERALS 1 TAB TABLET GT SCH (08:07)
[2019-10-05] MEDS: SUCRALFATE 1 G/10 ML UDC GT SCH (08:07)
[2019-10-05] MEDS: DILTIAZEM HCL CD 240 MG PO SCH (08:07)
[2019-10-05] MEDS: DOCUSATE SODIUM LIQ 100 MG/10 ML UDC GT SCH ×2 (08:07→17:36)
[2019-10-05] MEDS: NYSTATIN OINT 100000 UNIT/G 15 GM TUBE TP SCH ×3 (08:08→17:36)
[2019-10-05] MEDS: CLOTRIMAZOLE 1% 15 GM TUBE TP SCH ×2 (08:08→17:36)
[2019-10-05] MEDS: MINERAL OIL/PETROLATUM,WHITE 120 GM JAR TP SCH (08:08)
[2019-10-05] MEDS: ACETYLCYSTEINE 10% SOLN 400 MG/4 ML VIAL NEB SCH ×3 (08:13→23:15)
[2019-10-05] MEDS: BUDESONIDE RESPULE INH 0.5 MG/2 ML AMPUL.NEB IH SCH ×2 (08:54→20:23)
--- NOTE | 2019-10-05 12:37 | NUR ---
LATHMAKER NOTES PATIENT BLOOD SUGAR IS 114. NO INSULIN NEEDED AT THIS TIME PER PROTOCOL.
--- NOTE | 2019-10-05 17:40 | NUR ---
LEARNING SOLUTIONS SPECIALIST NOTES PATIENT BLOOD SUGAR IS 127. NO INSULIN NEEDED AT THIS TIME PER PROTOCOL.
--- NOTE | 2019-10-05 19:00 | NUR ---
RECIEVED PATIENT IN BED LEFT iv SITE LEAKING. RESTARTED iv RIGHT F/A GA20 iv FLUIDS RESUMED. SHE IS AWARE SHE IS NPO ORDERED BY THE MD. SPOKE TO HER DAUGHTER ON THE PHONE, SHE DEMANDED VERBALLY OVER THE PHONE SHE WILL COME SEE HER mOTHER TOMORROW, ATTEMPTED TO INFORM HER THAT NO VISITOR ARE BEING ALLOWED, SHE SAID SHE'D BE HERE TOMORROW. PATIENT AMBULATED TO THE BATHROOM WITH STANDBY ASSIST STEADY ON HER LEGS
--- NOTE | 2019-10-05 19:00 | NUR ---
RECIEVED IN BED SATS 98 % ABLE TO WHISPER SPEAK AND MAKES HIS NEEDS KNOWN. SKIN WARM AND REVEIWED THE CALL LIGHT WITH HIM NO S/S OF DISTRESS. rESP TX JUST FINISHED
--- NOTE | 2019-10-05 19:24 | NUR ---
PROTECTION AGENT CLOSING NOTES PATIENT IN BED RESTING COMFORTABLY. PATIENT IN NO ACUTE DISTRESS. NO SOB NOTED. PATIENT BREATHING IS EVEN AND UNLABORED. PATIENT ON CARDIAC MONITORING READING AFIB HR 90. PATIENT ON VENT, TOLERATING VENT SETTINGS WELL. PATIENT HOB IS ELEVATED. PATIENT BED ALARM IS ON. SAFETY PRECAUTIONS IN PLACE. PATIENT WITH GTUBE FEEDINGS, NEPHRO AT 45ML/HR INFUSING WELL. WOUND CARE PROVIDED ORDERED. PATIENT KEPT CLEAN, DRY AND COMFORTABLE THROUGHOUT SHIFT. PATIENT BED IS LOCKED AND IN LOWEST POSITION. CALL LIGHT WITHIN REACH. WILL ENDORSE CARE TO PM SHIFT FOR REESE.
[2019-10-05] MEDS: MEROPENEM 500 MG in IV NS 0.9% 50 ML IV SCH (21:22)
[2019-10-05] MEDS: ATORVASTATIN 10 MG TABLET GT SCH (21:23)
[2019-10-05] MEDS: TAMSULOSIN 0.4 MG CAP.SR.24H GT SCH (21:23)
[2019-10-05] MEDS: QUETIAPINE FUMARATE 100 MG TABLET GT SCH (21:24)
[2019-10-06] VITALS (10 sets, daily range): BP systolic 103–151; BP diastolic 49–88
[2019-10-06] MEDS: BLOOD SUGAR DIAGNOSTIC 1 EACH STRIP IN SCH ×4 (00:13→17:49)
[2019-10-06] MEDS: INSULIN REGULAR, HUMAN 100 UNIT/ML 3 ML VIAL SQ PRN ×4 (00:19→17:53)
[2019-10-06] MEDS: IPRATROPIUM NEB FS 0.5 MG/2.5 ML AMPUL.NEB NEB SCH ×4 (01:36→19:55)
[2019-10-06] MEDS: ALBUTEROL FS 2.5 MG/3 ML VIAL.NEB NEB SCH ×4 (01:36→19:55)
--- NOTE | 2019-10-06 04:59 | NUR ---
ENDING NOTES: SLEPT THRU THE NIGHT. AT THE BEGINNING OF THE SHIFT HE KEPT RINGING THE CALL LIGHT TO HAVE THE NURSE CHECK HIS SATS. HIS SATS ARE IN THE HIGH 90'S. WHEN SUCTIONED HE IS DRY NOT NEEDING TO SUCTION . BUTTOCKS CLEANED AND APLLIED LOTRIM CREAM AND MEPELIX ORDERED. SUNDAY PHOTOS TAKEN THE OF SACRAL BUTTOCLS FEET LEFT DICKENS. HE HAS BEEN ON THE CARDIAC MONITORCONTROLLED AFIB
[2019-10-06 07:00] LABS: BASOPHILS # (AUTO) 0.1 /CMM (0.0-0.2); BASOPHILS % (AUTO) 0.5 % (0.0-2.0); EOSINOPHILS % (AUTO) 11.6 % (0.0-6.0); HEMATOCRIT 26 % (39-51); HEMOGLOBIN 8.2 g/dL (13.5-17.5); LYMPHOCYTES # (AUTO) 2.2 /CMM (0.8-4.8); LYMPHOCYTES % (AUTO) 20.1 % (20.0-44.0); MEAN CORPUSCULAR HGB CONC 32 g/dl (31.0-36.0); MEAN CORPUSCULAR VOLUME 95 fL (80-96); MONOCYTES # (AUTO) 1.3 /CMM (0.1-1.30); NEUTROPHILS % (AUTO) 55.8 % (43.0-81.0); PLATELET COUNT (AUTO) 221 /CMM (150-450); RED BLOOD CELL COUNT(AUTO) 2.68 MIL/uL (4.5-6.0); WHITE BLOOD COUNT (AUTO) 10.8 K/uL (4.3-11.0)
[2019-10-06 07:13] LABS: ALANINE AMINOTRANSFERASE < 6 U/L (12-78); ALBUMIN 2.1 g/dL (3.4-5.0); ALKALINE PHOSPHATASE 55 U/L (46-116); ASPARTATE AMINOTRANSFERASE 14 U/L (15-37); BILIRUBIN,TOTAL 0.3 mg/dL (0.2-1.0); CALCIUM, SERUM 9.3 mg/dL (8.5-10.1); CARBON DIOXIDE 30 mmol/L (21-32); CHLORIDE 104 mmol/L (98-107); CREATININE 7.4 mg/dL (0.6-1.3); GLUCOSE 131 mg/dL (74-106); MAGNESIUM 2.9 mg/dL (1.8-2.4); PHOSPHORUS 6.3 mg/dL (2.5-4.9); POTASSIUM 4.6 mmol/L (3.5-5.1); SODIUM SERUM 141 mmol/L (136-145); TOTAL PROTEIN, SERUM 6.5 g/dL (6.4-8.2); UREA NITROGEN, BLOOD 77 mg/dL (7-18)
--- NOTE | 2019-10-06 07:40 | NUR ---
rn notes patient disconnected vent from trachea tubing, SOB. Connected vent back, pulse present, v/s taken bp 132/49, p-133, 02-99, patient DNR, called rapid response, but cancelled because patient condition get back to the stable. Get mittens restrain order because of removing vent. RT next to the bed giving breathing treatment. Patient stable, rechecked P- 95, o2-98 vent, open eyes. call light within to reach, continued monitoring.
--- NOTE | 2019-10-06 08:00 | NUR ---
rn notes patient stable trachea/vent dependent, asking to remove mittens, GT infusing nephro 45 ml/hr intact, administered scheduled medication crushed via GT, left hand sl intact, patient bed bound, total care, keep HOB elevated aspiration precaution, tele SR-93, bp -151/69, p-90, assist patient turn and reposition q 2 hr. f/c draining light yellow output, PentaCath on right upper chest for hemodialysis intact. call light within to reach. continued monitoring.
[2019-10-06] MEDS: ACETYLCYSTEINE 10% SOLN 400 MG/4 ML VIAL NEB SCH ×3 (08:07→23:30)
[2019-10-06 08:25] LABS: EOSINOPHILS % (MANUAL) 13 % (0-4); LYMPHOCYTES % (MANUAL) 22 % (16-48); MONOCYTES % (MANUAL) 9 % (0-11.0); NEUTROPHILS % (MANUAL) 56 (42-76)
[2019-10-06] MEDS: BUDESONIDE RESPULE INH 0.5 MG/2 ML AMPUL.NEB IH SCH ×2 (08:48→19:55)
--- NOTE | 2019-10-06 09:00 | NUR ---
rn notes patient obese, keep HOB elevated for aspiration precaution, no acute respiratory distress.
[2019-10-06] MEDS: LEVOTHYROXINE SODIUM 88 MCG TABLET GT SCH (10:10)
[2019-10-06] MEDS: DOCUSATE SODIUM LIQ 100 MG/10 ML UDC GT SCH ×2 (10:10→17:48)
[2019-10-06] MEDS: SUCRALFATE 1 G/10 ML UDC GT SCH (10:10)
[2019-10-06] MEDS: MULTIVIT W/MINERALS 1 TAB TABLET GT SCH (10:11)
[2019-10-06] MEDS: MINERAL OIL/PETROLATUM,WHITE 120 GM JAR TP SCH (10:12)
[2019-10-06] MEDS: DILTIAZEM HCL CD 240 MG PO SCH (10:12)
[2019-10-06] MEDS: CLOTRIMAZOLE 1% 15 GM TUBE TP SCH ×2 (10:13→17:49)
[2019-10-06] MEDS: NYSTATIN OINT 100000 UNIT/G 15 GM TUBE TP SCH ×3 (10:13→17:49)
--- NOTE | 2019-10-06 10:45 | NUR ---
rn notes Patient having hemodialysis at this time.
--- NOTE | 2019-10-06 13:22 | NUR ---
rn notes bs-142 mg/dl, coverage given, v/s taken bp-106/5-, p-90, HD finished output was 1.8 . patient resting in the bed.
[2019-10-06] MEDS: ACETAMINOPHEN 325 MG TABLET PO PRN (17:50)
--- NOTE | 2019-10-06 18:30 | NUR ---
RN NOTES BS-142 MG/DL COVERAGE GIVEN, PATIENT STABLE, NO ACUTE RESPIRATORY DISTRESS, V/S STABLE, ADMINISTERED SCHEDULED MEDICATION, AND TYLENOL 650 MG VIA GT INTACT FOR BLE PAIN PER PATIENT REQUEST. PATIENT TOLERATING GT FEEDING 45 ML/HR WELL, KEEP HOB ELEVATED FOR ASPIRATION PRECAUTION. CHECKED CIRCULATION ON BOTH HANDS SOFT RESTRAIN. ASSIST PATIENT TURN AND REPOSTION Q 2 HR. DAILEY CATHETER DRAINING YELLOW OUTPUT. CALL LIGHT WITHIN TO REACH. ENDORSED ONCOMING NURSE FOLLOW PLAN OF CARE.
--- NOTE | 2019-10-06 19:30 | NUR ---
RN OPENING NOTES Received patient awake on bed. On vent with setting noted, no SOB/respiratory distress noted. On tele monitor with controlled A-Fib noted. Patient denies any discomfort at this time. With GTF infusing well, no N/V noted. Kept on bed clean, dry and comfortable. Call light within easy reach. On fall and aspiration precautions. Will continue to monitor accordingly.
[2019-10-06] MEDS: MEROPENEM 500 MG in IV NS 0.9% 50 ML IV SCH (21:52)
[2019-10-06] MEDS: TAMSULOSIN 0.4 MG CAP.SR.24H GT SCH (22:10)
[2019-10-06] MEDS: QUETIAPINE FUMARATE 100 MG TABLET GT SCH (22:10)
[2019-10-06] MEDS: ATORVASTATIN 10 MG TABLET GT SCH (22:10)
[2019-10-07] VITALS: BP 98/58
[2019-10-07] MEDS: BLOOD SUGAR DIAGNOSTIC 1 EACH STRIP IN SCH ×4 (00:01→16:41)
[2019-10-07] MEDS: ALBUTEROL FS 2.5 MG/3 ML VIAL.NEB NEB SCH ×4 (01:30→20:43)
[2019-10-07] MEDS: IPRATROPIUM NEB FS 0.5 MG/2.5 ML AMPUL.NEB NEB SCH ×4 (01:30→20:43)
[2019-10-07 04:00] VITALS: BP 106/70
--- NOTE | 2019-10-07 06:59 | NUR ---
RN CLOSING NOTES Patient asleep, easily awaken. On Vent with current setting tolerated well, no SOB/respiratory distress noted. On GTF tolerated well, no N/V noted. On tele monitor with controlled A-Fib noted. All nursing needs attended. Kept on bed clean, dry and comfortable. On fall and aspiration precautions, call light within easy reach. Endorsed.
[2019-10-07] MEDS: ACETYLCYSTEINE 10% SOLN 400 MG/4 ML VIAL NEB SCH ×3 (07:43→23:32)
[2019-10-07] MEDS: BUDESONIDE RESPULE INH 0.5 MG/2 ML AMPUL.NEB IH SCH ×2 (07:44→20:43)
[2019-10-07 08:00] VITALS: BP 104/53
--- NOTE | 2019-10-07 08:00 | NUR ---
RN NOTES RECEIVED PATIENT IN THE ROOM A/O X2/3. PATIENT ON VENT/TRACHEA DEPENDENT. NO ACUTE RESPIRATORY DISTRESS. PATIENT OBESE, EDEMA BLE, AND DISCOLORATION. CHECKED GT RESIDUA, AND PLACEMENT. ADMINISTERED SCHEDULED MEDICATION VIA GT, TOLERATING FEEDING WELL, PATIENT A-FIB SR 91/92. ELEVATED BLE FOR EDEMA, AND KEEP HOB ELEVATED FOR ASPIRATION PRECAUTION. ASSIST PATIENT TURN AND REPOSTION Q 2 HR, CHANGE DRESSING ON LEFT AND RIGHT BUTTOCKS. CALL LIGHT WITHIN TO REACH. RT NEXT TO THE BED FOR BREATHING TREATMENT.
[2019-10-07] MEDS: SUCRALFATE 1 G/10 ML UDC GT SCH (08:42)
[2019-10-07] MEDS: DOCUSATE SODIUM LIQ 100 MG/10 ML UDC GT SCH ×2 (08:42→16:40)
[2019-10-07] MEDS: MULTIVIT W/MINERALS 1 TAB TABLET GT SCH (08:55)
[2019-10-07] MEDS: MINERAL OIL/PETROLATUM,WHITE 120 GM JAR TP SCH (08:56)
[2019-10-07] MEDS: LEVOTHYROXINE SODIUM 88 MCG TABLET GT SCH (08:57)
[2019-10-07] MEDS: NYSTATIN OINT 100000 UNIT/G 15 GM TUBE TP SCH ×3 (08:57→16:40)
[2019-10-07] MEDS: CLOTRIMAZOLE 1% 15 GM TUBE TP SCH ×2 (08:57→16:40)
[2019-10-07] MEDS: DILTIAZEM HCL CD 240 MG PO SCH (08:57)
[2019-10-07 16:00] VITALS: BP 101/55
[2019-10-07] MEDS: NEPRO 1,000 ML BOTTLE GT PRN (16:44)
--- NOTE | 2019-10-07 18:00 | NUR ---
RN NOTES BS- 111 MG/DL, PATIENT STABLE, REFUSED PAIN, V/S WNL, ASSIST TURN AND REPOSITION Q2 HR, FLASHED GT WITH 200 ML WATER, CALL LIGHT WITHIN TO REACH. ENDORSED ONCOMING NURSE FOLLOW PLAN OF CARE.
--- NOTE | 2019-10-07 18:26 | NUR ---
RN NOTES BS-126 MG/DL, ADMINISTERED SCHEDULED MEDICATION, INFUSING NEPRO 1.8 IVORY FT INTACT 45 ML. PATIENT TOLERATED FEEDING WELL, ASSIST TURN AND REPOSTION Q 2 HR, REFUSED PAIN, KEEP HOB, AND BLE ELEVATED, CALL LIGHT WITHIN TO REACH. CONTINUED MONITORING.
--- NOTE | 2019-10-07 19:15 | NUR ---
DECONTAMINATION TECHNICIAN NOTES RECEIVED PT IN BED AWAKE AND ABLE TO MAKE NEEDS KNOWN. PT A/O X2/3. RESPIRATIONS EVEN AND UNLABORED WITH NO S/S OF ACUTE DISTRESS OR SOB NOTED. NO COMPLAINTS OF PAIN AT THIS TIME. SAFETY MEASURES IN PLACE WITH BED IN LOWEST LOCKED POSITION WITH SIDE RAILS UP X2. CALL LIGHT WITHIN REACH. WILL CONTINUE TO MONITOR.
[2019-10-07 20:00] VITALS: BP 116/51
[2019-10-07] MEDS: QUETIAPINE FUMARATE 100 MG TABLET GT SCH (22:40)
[2019-10-07] MEDS: TAMSULOSIN 0.4 MG CAP.SR.24H GT SCH (22:40)
[2019-10-07] MEDS: ATORVASTATIN 10 MG TABLET GT SCH (22:41)
[2019-10-08] VITALS: BP 116/51
[2019-10-08] MEDS: BLOOD SUGAR DIAGNOSTIC 1 EACH STRIP IN SCH ×5 (00:41→23:28)
[2019-10-08] MEDS: ALBUTEROL FS 2.5 MG/3 ML VIAL.NEB NEB SCH ×4 (02:22→19:17)
[2019-10-08] MEDS: IPRATROPIUM NEB FS 0.5 MG/2.5 ML AMPUL.NEB NEB SCH ×4 (02:22→19:17)
[2019-10-08 04:00] VITALS: BP 120/47
--- NOTE | 2019-10-08 07:15 | NUR ---
Tele/RN - Assessment Patient is alert and oriented x 3, denies pain, on mechanical vent, settings AC 18 TV 600 FiO2 40% PEEP 5, tele shows A.Fib 90s. GTF Nepro at 45 ml/hr, tolerating it well, no residual seen, no further hypoglycemia episode. Saline lock on the left hand is patent, intact, flushing well. Leija catheter in place for wound management on sacrum ext to buttocks. Lab results are still pending. All needs attended. Contact precautions maintained for MRSA nares. Will continue with current plan of care.
[2019-10-08] MEDS: LEVOTHYROXINE SODIUM 88 MCG TABLET GT SCH (07:31)
--- NOTE | 2019-10-08 07:39 | NUR ---
APPLIANCE LINE ASSEMBLER NOTES PT IN BED AWAKE AND ABLE TO MAKE NEEDS KNOWN. PT A/O X2/3. RESPIRATIONS EVEN AND UNLABORED WITH NO S/S OF ACUTE DISTRESS OR SOB NOTED THROUGHOUT SHIFT. NO COMPLAINTS OF PAIN AT THIS TIME. PT KEPT CLEAN, DRY, AND COMFORTABLE. SAFETY MEASURES IN PLACE WITH BED IN LOWEST LOCKED POSITION WITH SIDE RAILS UP X2. CALL LIGHT WITHIN REACH. WILL ENDORSE TO ONCOMING NURSE FOR REESE.
[2019-10-08] MEDS: BUDESONIDE RESPULE INH 0.5 MG/2 ML AMPUL.NEB IH SCH ×2 (07:55→19:17)
[2019-10-08] MEDS: ACETYLCYSTEINE 10% SOLN 400 MG/4 ML VIAL NEB SCH ×3 (07:55→23:02)
[2019-10-08 07:58] LABS: BASOPHILS # (AUTO) 0.1 /CMM (0.0-0.2); BASOPHILS % (AUTO) 0.7 % (0.0-2.0); EOSINOPHILS % (AUTO) 12.5 % (0.0-6.0); HEMATOCRIT 24 % (39-51); HEMOGLOBIN 7.4 g/dL (13.5-17.5); LYMPHOCYTES # (AUTO) 2.7 /CMM (0.8-4.8); LYMPHOCYTES % (AUTO) 25.9 % (20.0-44.0); MEAN CORPUSCULAR HGB CONC 32 g/dl (31.0-36.0); MEAN CORPUSCULAR VOLUME 94 fL (80-96); MONOCYTES # (AUTO) 1.2 /CMM (0.1-1.30); MONOCYTES % (AUTO) 12.1 % (2.0-12.0); NEUTROPHILS % (AUTO) 48.8 % (43.0-81.0); PLATELET COUNT (AUTO) 222 /CMM (150-450); RED BLOOD CELL COUNT(AUTO) 2.52 MIL/uL (4.5-6.0); WHITE BLOOD COUNT (AUTO) 10.3 K/uL (4.3-11.0)
[2019-10-08 08:02] VITALS: BP 116/61
[2019-10-08] MEDS ORDERED: MAGNESIUM HYDROXIDE 30 ML UDC GT PRN (08:07)
[2019-10-08] MEDS ORDERED: MAG HYDROX/AL HYDROX/SIMETH 30 ML UDC GT PRN (08:08)
[2019-10-08] MEDS: SUCRALFATE 1 G/10 ML UDC GT SCH (08:10)
[2019-10-08] MEDS: MULTIVIT W/MINERALS 1 TAB TABLET GT SCH (08:10)
[2019-10-08] MEDS: DILTIAZEM HCL CD 240 MG PO SCH (08:11)
[2019-10-08] MEDS: MINERAL OIL/PETROLATUM,WHITE 120 GM JAR TP SCH (08:12)
[2019-10-08] MEDS: NYSTATIN OINT 100000 UNIT/G 15 GM TUBE TP SCH ×3 (08:13→17:05)
[2019-10-08] MEDS: CLOTRIMAZOLE 1% 15 GM TUBE TP SCH ×2 (08:13→16:56)
[2019-10-08] MEDS: DOCUSATE SODIUM LIQ 100 MG/10 ML UDC GT SCH ×2 (08:14→16:54)
[2019-10-08 08:30] LABS: CALCIUM, SERUM 8.9 mg/dL (8.5-10.1); CARBON DIOXIDE 26 mmol/L (21-32); CHLORIDE 101 mmol/L (98-107); CREATININE 6.6 mg/dL (0.6-1.3); GLUCOSE 107 mg/dL (74-106); MAGNESIUM 2.9 mg/dL (1.8-2.4); PHOSPHORUS 5.7 mg/dL (2.5-4.9); POTASSIUM 4.3 mmol/L (3.5-5.1); SODIUM SERUM 139 mmol/L (136-145); UREA NITROGEN, BLOOD 67 mg/dL (7-18)
[2019-10-08 12:17] LABS: EOSINOPHILS % (MANUAL) 12 % (0-4); LYMPHOCYTES % (MANUAL) 32 % (16-48); MONOCYTES % (MANUAL) 11 % (0-11.0); MYELOCYTES % 2 % (0-0); NEUTROPHILS % (MANUAL) 43 (42-76)
[2019-10-08] MEDS: NEPRO 1,000 ML BOTTLE GT PRN (15:15)
[2019-10-08 18:02] VITALS: BP 105/55
--- NOTE | 2019-10-08 18:35 | NUR ---
Tele/RN - End of shift summary No new events the whole shift, remain afebrile, tolerating vent settings well, HD treatment done, no fluids removed. Patient to decide if he wants to proceed with outpatient HD vs palliative care. Will continue with current medical management.
[2019-10-08 20:00] VITALS: BP 119/56
--- NOTE | 2019-10-08 20:12 | NUR ---
RECEIVED PATIENT IN BED, EYES CLOSED RESP EVEN AND UNLABORED CALL LIGHT IN HIS HANDAFIB CONTROLLED ON THE MONITOR
[2019-10-08 20:23] VITALS: BP 110/56
[2019-10-08] MEDS: ATORVASTATIN 10 MG TABLET GT SCH (21:56)
[2019-10-08] MEDS: QUETIAPINE FUMARATE 100 MG TABLET GT SCH (21:56)
[2019-10-08] MEDS: TAMSULOSIN 0.4 MG CAP.SR.24H GT SCH (21:56)
[2019-10-09] VITALS: BP 114/62
[2019-10-09 00:31] VITALS: BP 114/71
[2019-10-09] MEDS: ALBUTEROL FS 2.5 MG/3 ML VIAL.NEB NEB SCH ×4 (02:24→19:34)
[2019-10-09] MEDS: IPRATROPIUM NEB FS 0.5 MG/2.5 ML AMPUL.NEB NEB SCH ×4 (02:24→19:34)
[2019-10-09] MEDS: NEPRO 1,000 ML BOTTLE GT PRN (02:54)
--- NOTE | 2019-10-09 04:52 | NUR ---
MR. GORMAN IS ALERT AND ORIENTATED, ABLE TO VERBALIZE HIS NEEDS IN A WHISPERED TONE. FOLLOWS DIRECTIONS. BED MOBILITY IS LIMITED. HE NEEDS MAXI ASSIST TO BE REPOSITIONED. SELF SUCTIONS ORALLY. NO S/S OF DISTRESS THIS 12 HOURS. MAINTAINED ISOLATION D/T MRSA NARES. BUTTOCKS WOUND CARE DONE
[2019-10-09] MEDS: BLOOD SUGAR DIAGNOSTIC 1 EACH STRIP IN SCH ×3 (05:35→17:08)
--- NOTE | 2019-10-09 07:20 | NUR ---
Tele/RN - Assessment Patient is alert and oriented x 3, no complaints overnight, denies pain, on mechanical vent, settings AC 18 TV 600 FiO2 40% PEEP 5, tele shows A.Fib 80s. GTF Nepro at 45 ml/hr, tolerating it well, no residual seen. Saline lock on the left hand is patent, intact, flushing well. Leija catheter in place for wound management on sacrum ext to buttocks. Lab results are still pending. All needs attended. Contact precautions maintained for MRSA nares. Will continue with current plan of care.
[2019-10-09] MEDS: ACETYLCYSTEINE 10% SOLN 400 MG/4 ML VIAL NEB SCH ×2 (07:43→15:31)
[2019-10-09] MEDS: BUDESONIDE RESPULE INH 0.5 MG/2 ML AMPUL.NEB IH SCH ×2 (07:43→19:34)
[2019-10-09 08:00] VITALS: BP 99/51
[2019-10-09 08:07] LABS: BASOPHILS # (AUTO) 0.1 /CMM (0.0-0.2); BASOPHILS % (AUTO) 0.5 % (0.0-2.0); EOSINOPHILS % (AUTO) 12.9 % (0.0-6.0); HEMATOCRIT 23 % (39-51); HEMOGLOBIN 7.4 g/dL (13.5-17.5); LYMPHOCYTES # (AUTO) 2.4 /CMM (0.8-4.8); LYMPHOCYTES % (AUTO) 24.3 % (20.0-44.0); MEAN CORPUSCULAR HGB CONC 32 g/dl (31.0-36.0); MEAN CORPUSCULAR VOLUME 93 fL (80-96); MONOCYTES # (AUTO) 1.1 /CMM (0.1-1.30); MONOCYTES % (AUTO) 11.6 % (2.0-12.0); NEUTROPHILS # (AUTO) 4.9 /CMM (1.8-8.9); NEUTROPHILS % (AUTO) 50.7 % (43.0-81.0); PLATELET COUNT (AUTO) 235 /CMM (150-450); RED BLOOD CELL COUNT(AUTO) 2.47 MIL/uL (4.5-6.0); WHITE BLOOD COUNT (AUTO) 9.7 K/uL (4.3-11.0)
[2019-10-09] MEDS: MULTIVIT W/MINERALS 1 TAB TABLET GT SCH (08:19)
[2019-10-09] MEDS: SUCRALFATE 1 G/10 ML UDC GT SCH (08:19)
[2019-10-09] MEDS: DOCUSATE SODIUM LIQ 100 MG/10 ML UDC GT SCH ×2 (08:19→16:09)
[2019-10-09] MEDS: LEVOTHYROXINE SODIUM 88 MCG TABLET GT SCH (08:19)
[2019-10-09] MEDS: DILTIAZEM HCL CD 240 MG NG SCH (08:21)
[2019-10-09] MEDS: MINERAL OIL/PETROLATUM,WHITE 120 GM JAR TP SCH (08:22)
[2019-10-09] MEDS: CLOTRIMAZOLE 1% 15 GM TUBE TP SCH ×2 (08:23→16:22)
[2019-10-09] MEDS: NYSTATIN OINT 100000 UNIT/G 15 GM TUBE TP SCH ×3 (08:23→16:23)
[2019-10-09 08:26] LABS: CALCIUM, SERUM 8.5 mg/dL (8.5-10.1); CARBON DIOXIDE 30 mmol/L (21-32); CHLORIDE 101 mmol/L (98-107); CREATININE 5.6 mg/dL (0.6-1.3); GLUCOSE 113 mg/dL (74-106); MAGNESIUM 2.6 mg/dL (1.8-2.4); PHOSPHORUS 5.4 mg/dL (2.5-4.9); POTASSIUM 3.8 mmol/L (3.5-5.1); SODIUM SERUM 138 mmol/L (136-145); UREA NITROGEN, BLOOD 56 mg/dL (7-18)
[2019-10-09 16:00] VITALS: BP 106/60
[2019-10-09] MEDS: PROSOURCE / PROSTAT (PYXIS) 30 ML UDC GT SCH (16:22)
--- NOTE | 2019-10-09 18:14 | NUR ---
Tele/RN - End of shift summary No significant change in condition seen, remain afebrile, tolerating vent settings well. Patient is now agreeable for outpatient HD treatment. Patient prefers [facility] because his family lives there. fish and game club manager to look for placement and HD chair time. Will continue with current medical management.
--- NOTE | 2019-10-09 19:06 | NUR ---
Tele/RN - Ferrlecit Follow-up call made to pharmacy regarding Ferrlecit, spoke with
--- NOTE | 2019-10-09 19:31 | NUR ---
TELE/RN OPENING NOTES: Patient is A/Ox 3, denies pain, on mechanical vent, settings AC 18 TV 600 FiO2 45% PEEP 5, tele shows A.Fib with heart rate on the 80s. GTF Nepro at 45 ml/hr, tolerating it well, no residual noted. Saline lock on the left hand is patent, intact, flushing well. Leija catheter in place for wound management on sacrum ext to buttocks. Safety measures in place. Bed in low, locked position. Contact precautions maintained for MRSA nares. Will continue with current plan of care.
[2019-10-09 20:00] VITALS: BP 108/46
[2019-10-09 20:02] VITALS: BP 108/46
[2019-10-09] MEDS: QUETIAPINE FUMARATE 100 MG TABLET GT SCH (23:12)
[2019-10-09] MEDS: TAMSULOSIN 0.4 MG CAP.SR.24H GT SCH (23:12)
[2019-10-09] MEDS: ATORVASTATIN 10 MG TABLET GT SCH (23:12)
[2019-10-10] VITALS (7 sets, daily range): BP systolic 94–120; BP diastolic 44–58
--- NOTE | 2019-10-10 | NUR ---
TELE/RN NOTES: PT'S GT IS CLOGGED. PAUSED FEEDING AND FIXED THE CLOG. GTUBE NOW WORKING FINE. PATENT AND FLUSHING WELL. INFUSING NEPRO AT 45MLS/HR. WILL CONTINUE TO MONITOR.
--- NOTE | 2019-10-10 00:06 | NUR ---
RT NOTE PT RECEIVED TRACHED ON MECHANICAL VENTILATION. PT AWAKE/ALERT. CUFF CHECKED VIA RETAIL CONSULTANT. TX GIVEN, NO ADVERSE REACTIONS NOTED. SX DONE, TRACH SECURED AND PATENT. ALARMS ON AND AUDIBLE. VENT PLUGGED TO RED OUTLET. PT CONNECTED TO CONT. PULSE OX. NO DISTRESS NOTED. WILL MONITOR T/O SHIFT. Addendum: 10/10/19 at 0007 by JOHANNA WADDELL RT Amended: Links added.
[2019-10-10] MEDS: BLOOD SUGAR DIAGNOSTIC 1 EACH STRIP IN SCH ×4 (00:13→17:58)
[2019-10-10] MEDS: INSULIN REGULAR, HUMAN 100 UNIT/ML 3 ML VIAL SQ PRN ×2 (00:14→07:05)
[2019-10-10] MEDS: IPRATROPIUM NEB FS 0.5 MG/2.5 ML AMPUL.NEB NEB SCH ×4 (01:22→20:06)
[2019-10-10] MEDS: ACETYLCYSTEINE 10% SOLN 400 MG/4 ML VIAL NEB SCH ×4 (01:22→23:41)
[2019-10-10] MEDS: ALBUTEROL FS 2.5 MG/3 ML VIAL.NEB NEB SCH ×4 (01:22→20:06)
--- NOTE | 2019-10-10 05:59 | NUR ---
TELE/RN NOTES: PT. REFUSES 0600 ACCUCHECK. PREFERS TO HAVE IT TAKEN LATER. WILL CONTINUE TO MONITOR.
--- NOTE | 2019-10-10 07:06 | NUR ---
TELE/RN NOTES: PT. AGREED TO GET ACCUCHECK TAKEN. 101. NO INSULIN COVERAGE PER SLIDING SCALE. NG TUBE RUNNING AT 45MLS/HR.
--- NOTE | 2019-10-10 07:07 | NUR ---
TELE/RN CLOSING NOTES: Patient remains A/Ox 3, denies pain, on mechanical vent, settings AC 18 TV 600 FiO2 45% PEEP 5, tele shows A.Fib with heart rate on the 80s. GTF Nepro at 45 ml/hr, tolerating it well, no residual noted. Saline lock on the left hand is patent, intact, flushing well. Gtube flushed q2 hrs to prevent clogging. Leija catheter in place for wound management on sacrum ext to buttocks. Wound treatment done as ordered. bs check 101. no insulin administered as per sliding scale. Safety measures in place. Bed in low, locked position. Contact precautions maintained for MRSA nares. Will endorse to morning shift for current plan of care.
[2019-10-10 07:29] LABS: BASOPHILS # (AUTO) 0.1 /CMM (0.0-0.2); BASOPHILS % (AUTO) 0.5 % (0.0-2.0); EOSINOPHILS % (AUTO) 10.9 % (0.0-6.0); HEMATOCRIT 23 % (39-51); HEMOGLOBIN 7.4 g/dL (13.5-17.5); LYMPHOCYTES # (AUTO) 2.5 /CMM (0.8-4.8); LYMPHOCYTES % (AUTO) 22.5 % (20.0-44.0); MEAN CORPUSCULAR HGB CONC 33 g/dl (31.0-36.0); MEAN CORPUSCULAR VOLUME 92 fL (80-96); MONOCYTES # (AUTO) 1.3 /CMM (0.1-1.30); MONOCYTES % (AUTO) 11.8 % (2.0-12.0); NEUTROPHILS # (AUTO) 5.9 /CMM (1.8-8.9); NEUTROPHILS % (AUTO) 54.3 % (43.0-81.0); PLATELET COUNT (AUTO) 222 /CMM (150-450); RED BLOOD CELL COUNT(AUTO) 2.45 MIL/uL (4.5-6.0); WHITE BLOOD COUNT (AUTO) 10.9 K/uL (4.3-11.0)
[2019-10-10 07:40] LABS: CALCIUM, SERUM 8.7 mg/dL (8.5-10.1); CARBON DIOXIDE 30 mmol/L (21-32); CHLORIDE 99 mmol/L (98-107); CREATININE 6.7 mg/dL (0.6-1.3); GLUCOSE 108 mg/dL (74-106); MAGNESIUM 2.7 mg/dL (1.8-2.4); PHOSPHORUS 6.4 mg/dL (2.5-4.9); SODIUM SERUM 136 mmol/L (136-145); UREA NITROGEN, BLOOD 64 mg/dL (7-18)
[2019-10-10] MEDS: BUDESONIDE RESPULE INH 0.5 MG/2 ML AMPUL.NEB IH SCH ×2 (07:47→20:06)
--- NOTE | 2019-10-10 08:00 | NUR ---
TROLLEY WORKER AM NOTE Received patient awake in bed appears calm and relaxed. On RA tolerating well. No signs of pain or distress. No signs of anxiousness. Leija catheter in place draining clear yellow urine. Skin intact. Has left hand IV H/L intact and patent. Safety measures reinforced. Call light within reach. Siderails up x2. Will cont to monitor.
--- NOTE | 2019-10-10 08:10 | NUR ---
PT ON VENT SETTINGS ORDERED WITH NO SOB.O2 SAT 100%.WITH NO SOB.TOLERATING GT FEEDING OF NEPRO AT 45 ML/HR TOLERATING FEEDING WELL WITH NO RESIDUALS NOTED.HOB ELEVATED.TURNED EVERY TWO HRS.AM CARE RENDERED AND MADE SOFT YELLOWISH BROWN BM.GOOD PERICARE RENDERED.WOUND TX DONE ORDERED. TURNED EVERY TWO HRS.
[2019-10-10] MEDS: DOCUSATE SODIUM LIQ 100 MG/10 ML UDC GT SCH ×2 (08:56→17:00)
[2019-10-10] MEDS: MULTIVIT W/MINERALS 1 TAB TABLET GT SCH (08:56)
[2019-10-10] MEDS: SUCRALFATE 1 G/10 ML UDC GT SCH (08:56)
[2019-10-10] MEDS: DILTIAZEM HCL CD 240 MG NG SCH (09:00)
[2019-10-10] MEDS: LEVOTHYROXINE SODIUM 88 MCG TABLET GT SCH (09:05)
[2019-10-10] MEDS: CLOTRIMAZOLE 1% 15 GM TUBE TP SCH ×2 (09:06→17:58)
[2019-10-10] MEDS: PROSOURCE / PROSTAT (PYXIS) 30 ML UDC GT SCH ×3 (09:11→17:57)
[2019-10-10] MEDS: MINERAL OIL/PETROLATUM,WHITE 120 GM JAR TP SCH (09:47)
--- NOTE | 2019-10-10 10:32 | NUR ---
COMPLETED HEMODIALYSIS PROCEDURE WITH NO OUTPUT JUST CLEANING DONE PER HD RN,MARISOL. BP 98/42 HR 73
[2019-10-10] MEDS: NYSTATIN OINT 100000 UNIT/G 15 GM TUBE TP SCH ×3 (11:33→17:58)
--- NOTE | 2019-10-10 13:33 | NUR ---
RT NOTE PT RCVD TRACH'D ON MECHANICAL VENT WITH CHARTED SETTINGS. PT [place] TX WELL. SX DONE. PT TRACH IS PATENT AND SECURE. VENT ALARMS ARE ON AND AUDIBLE. VENT PLUGGED INTO RED OUTLET. AMBU BAG AT BEDSIDE. NO SOB NOTED. Addendum: 10/10/19 at 1333 by JEFF GARCIA RT Amended: Links added.
[2019-10-10] MEDS: LORAZEPAM 1 MG TABLET GT PRN (14:36)
--- NOTE | 2019-10-10 19:30 | NUR ---
CONSUMER LENDING MANAGER PM OPENING NOTE REPORT RECIEVED. PATIENT IN BED AWAKE. REPORT ING HE HAS MINOR CP TO LEFT SIDE UPON INSPIRATION. PATIENT ON MECH VENT PER ORDERED SETTINGS TOLERATING WELL. FC DRAINING YOAN URINE. PT ON HD AND HAD TREATMENT EARLIER TODAY WITH NO FLUID REMOVED. SAFETY MEASURES IN PLACE CALL LIGHT IN REACH. SR X3 WILL CONT TO MONITOR.
[2019-10-10] MEDS: ACETAMINOPHEN 325 MG TABLET PO PRN (20:03)
[2019-10-10] MEDS: QUETIAPINE FUMARATE 100 MG TABLET GT SCH (22:58)
[2019-10-10] MEDS: ATORVASTATIN 10 MG TABLET GT SCH (22:58)
[2019-10-10] MEDS: TAMSULOSIN 0.4 MG CAP.SR.24H GT SCH (22:58)
[2019-10-10] MEDS: NEPRO 1,000 ML BOTTLE GT PRN (23:00)
--- NOTE | 2019-10-10 23:00 | NUR ---
RT NOTE PT RECEIVED TRACHED ON MECHANICAL VENTILATION. PT AWAKE/ALERT. TX GIVEN, NO ADVERSE REACTIONS NOTED. SX DONE, TRACH SECURED AND PATENT. ALARMS ON AND AUDIBLE. VENT PLUGGED TO RED OUTLET. PT CONNECTED TO CONT. PULSE OX. NO DISTRESS NOTED. WILL MONITOR T/O SHIFT. Addendum: 10/10/19 at 2301 by JOHANNA WADDELL RT Amended: Links added.
[2019-10-11 00:11] VITALS: BP 100/50
[2019-10-11] MEDS: BLOOD SUGAR DIAGNOSTIC 1 EACH STRIP IN SCH ×5 (00:52→23:54)
[2019-10-11] MEDS: INSULIN REGULAR, HUMAN 100 UNIT/ML 3 ML VIAL SQ PRN ×2 (00:53→17:13)
[2019-10-11] MEDS: ALBUTEROL FS 2.5 MG/3 ML VIAL.NEB NEB SCH ×4 (01:45→19:24)
[2019-10-11] MEDS: IPRATROPIUM NEB FS 0.5 MG/2.5 ML AMPUL.NEB NEB SCH ×4 (01:45→19:24)
[2019-10-11 04:02] VITALS: BP 109/54
[2019-10-11 06:30] LABS: BASOPHILS # (AUTO) 0.1 /CMM (0.0-0.2); EOSINOPHILS % (AUTO) 12.1 % (0.0-6.0); HEMATOCRIT 25 % (39-51); LYMPHOCYTES # (AUTO) 2.6 /CMM (0.8-4.8); LYMPHOCYTES % (AUTO) 26.6 % (20.0-44.0); MEAN CORPUSCULAR HGB CONC 32 g/dl (31.0-36.0); MEAN CORPUSCULAR VOLUME 94 fL (80-96); MONOCYTES # (AUTO) 1.3 /CMM (0.1-1.30); MONOCYTES % (AUTO) 13.9 % (2.0-12.0); NEUTROPHILS # (AUTO) 4.5 /CMM (1.8-8.9); NEUTROPHILS % (AUTO) 46.4 % (43.0-81.0); PLATELET COUNT (AUTO) 216 /CMM (150-450); RED BLOOD CELL COUNT(AUTO) 2.64 MIL/uL (4.5-6.0); WHITE BLOOD COUNT (AUTO) 9.6 K/uL (4.3-11.0)
[2019-10-11 06:52] LABS: CALCIUM, SERUM 8.7 mg/dL (8.5-10.1); CARBON DIOXIDE 31 mmol/L (21-32); CHLORIDE 98 mmol/L (98-107); CREATININE 5.6 mg/dL (0.6-1.3); GLUCOSE 109 mg/dL (74-106); MAGNESIUM 2.4 mg/dL (1.8-2.4); PHOSPHORUS 6.2 mg/dL (2.5-4.9); POTASSIUM 3.7 mmol/L (3.5-5.1); SODIUM SERUM 136 mmol/L (136-145); UREA NITROGEN, BLOOD 63 mg/dL (7-18)
[2019-10-11] MEDS: ACETYLCYSTEINE 10% SOLN 400 MG/4 ML VIAL NEB SCH ×3 (07:59→23:30)
[2019-10-11] MEDS: BUDESONIDE RESPULE INH 0.5 MG/2 ML AMPUL.NEB IH SCH ×2 (07:59→19:26)
[2019-10-11 08:00] VITALS: BP 105/56
--- NOTE | 2019-10-11 08:00 | NUR ---
FINGERPRINT TECHNICIAN AM NOTE Received patient awake in bed appears calm and relaxed. On mech vent with vent settings as ordered tolerating well. No signs of SOB, pain or distress. No signs of anxiousness. Leija catheter in place draining yellow urine. Wound tx to sacral ,horace buttocks and rashes done as ordered. Turned every two hrs. On GT feeding of Nepro at 45 ml/hr tolerating well with no residuals noted. HOB elevated. With aspiration precautions. Has left hand IV H/L intact and patent. On MRSA nares isolation precautions.Safety measures reinforced. Call light within reach. Siderails up x2. Will cont to monitor.
[2019-10-11] MEDS: DOCUSATE SODIUM LIQ 100 MG/10 ML UDC GT SCH ×2 (08:57→16:48)
[2019-10-11] MEDS: MULTIVIT W/MINERALS 1 TAB TABLET GT SCH (08:57)
[2019-10-11] MEDS: SUCRALFATE 1 G/10 ML UDC GT SCH (08:58)
[2019-10-11] MEDS: LEVOTHYROXINE SODIUM 88 MCG TABLET GT SCH (08:58)
[2019-10-11] MEDS: PROSOURCE / PROSTAT (PYXIS) 30 ML UDC GT SCH ×3 (09:00→16:48)
[2019-10-11] MEDS: DILTIAZEM HCL CD 240 MG NG SCH (09:00)
[2019-10-11] MEDS: MINERAL OIL/PETROLATUM,WHITE 120 GM JAR TP SCH (09:08)
[2019-10-11] MEDS: NYSTATIN OINT 100000 UNIT/G 15 GM TUBE TP SCH ×3 (09:08→16:49)
[2019-10-11] MEDS: CLOTRIMAZOLE 1% 15 GM TUBE TP SCH ×2 (09:09→16:51)
[2019-10-11] MEDS: LORAZEPAM 1 MG TABLET GT PRN (09:30)
[2019-10-11 16:00] VITALS: BP 104/56
--- NOTE | 2019-10-11 19:45 | NUR ---
RT NOTE PT RECEIVED TRACHED ON MECHANICAL VENTILATION. CUFF CHECKED VIA BUSINESS INTELLIGENCE DEVELOPER. AMBU BAG @ BEDSIDE. SX DONE, TRACH SECURED AND PATENT. ALARMS ON AND AUDIBLE. NO DISTRESS NOTED. WILL MONITOR T/O SHIFT. Addendum: 10/11/19 at 1945 by INA JEAN RT Amended: Links added.
--- NOTE | 2019-10-11 19:55 | NUR ---
RN OPEN NOTE RN OPEN NOTES PATIENT IS LAYING IN BED RECEIVING A BREATHING TREATMENT. BED IS IN LOWEST LOCKED POSITION WITH SIDE RAILS UP. CALL LIGHT IS WITHIN REACH. NO COMPLAINTS OF PAIN AT THE MOMENT. WILL CONTINUE TO MONITOR.
[2019-10-11 20:00] VITALS: BP 102/55
[2019-10-11 20:42] VITALS: BP 102/55
[2019-10-11] MEDS: ATORVASTATIN 10 MG TABLET GT SCH (21:24)
[2019-10-11] MEDS: QUETIAPINE FUMARATE 100 MG TABLET GT SCH (21:24)
[2019-10-11] MEDS: TAMSULOSIN 0.4 MG CAP.SR.24H GT SCH (21:24)
[2019-10-12] VITALS: BP 142/86
[2019-10-12] MEDS: NEPRO 1,000 ML BOTTLE GT PRN (01:05)
[2019-10-12] MEDS: IPRATROPIUM NEB FS 0.5 MG/2.5 ML AMPUL.NEB NEB SCH ×4 (01:10→19:56)
[2019-10-12] MEDS: ALBUTEROL FS 2.5 MG/3 ML VIAL.NEB NEB SCH ×4 (01:10→19:56)
[2019-10-12 04:00] VITALS: BP 118/57
[2019-10-12 04:05] VITALS: BP 118/57
[2019-10-12] MEDS: BLOOD SUGAR DIAGNOSTIC 1 EACH STRIP IN SCH ×4 (05:53→23:30)
--- NOTE | 2019-10-12 06:32 | NUR ---
RN CLOSE NOTES PATIENT IS LAYING IN BED. BED IS IN LOWEST LOCKED POSITION WITH SIDE RAILS UP, SEMI FOWLERS. CALL LIGHT IS WITHIN REACH. ON MECH VENT TOLERATING WELL. NO COMPLAINTS OF PAIN AT THE MOMENT. GTUBE FEEDING AT 45 MLS/HR. NO SOB/ ACUTE RESPIRATORY DISTRESS NOTED. A/O X3. IV ON LEFT HAND #22G IS PATENT AND INTACT. WILL ENDORSE TO AM NURSE.
[2019-10-12 07:06] LABS: BASOPHILS % (AUTO) 0.4 % (0.0-2.0); EOSINOPHILS % (AUTO) 10.2 % (0.0-6.0); HEMATOCRIT 24 % (39-51); HEMOGLOBIN 7.4 g/dL (13.5-17.5); LYMPHOCYTES # (AUTO) 2.1 /CMM (0.8-4.8); LYMPHOCYTES % (AUTO) 20.4 % (20.0-44.0); MEAN CORPUSCULAR HGB CONC 31 g/dl (31.0-36.0); MEAN CORPUSCULAR VOLUME 93 fL (80-96); MONOCYTES # (AUTO) 1.3 /CMM (0.1-1.30); MONOCYTES % (AUTO) 12.8 % (2.0-12.0); NEUTROPHILS # (AUTO) 5.7 /CMM (1.8-8.9); NEUTROPHILS % (AUTO) 56.2 % (43.0-81.0); PLATELET COUNT (AUTO) 241 /CMM (150-450); RED BLOOD CELL COUNT(AUTO) 2.55 MIL/uL (4.5-6.0); WHITE BLOOD COUNT (AUTO) 10.2 K/uL (4.3-11.0)
--- NOTE | 2019-10-12 07:35 | NUR ---
RETORT CONDENSER ATTENDANT OPENING NOTE PATIENT IN BED RESTING COMFORTABLY. PATIENT ON VENT, TOLERATING VENT SETTINGS WELL. PATIENT IN NO ACUTE DISTRESS. NO SOB NOTED. PATIENT BREATHING IS EVEN AND UNLABORED. PATIENT ON CARDIAC MONITORING READING AFIB HR 92. PATIENT HOB IS ELEVATED. BED ALARM IS ON. SAFETY PRECAUTIONS IN PLACE. PATIENT BED IS LOCKED AND IN LOWEST POSITION. CALL LIGHT WITHIN REACH. WILL CONTINUE TO MONITOR.
[2019-10-12 07:45] LABS: CALCIUM, SERUM 8.5 mg/dL (8.5-10.1); CARBON DIOXIDE 29 mmol/L (21-32); CHLORIDE 97 mmol/L (98-107); CREATININE 6.1 mg/dL (0.6-1.3); GLUCOSE 107 mg/dL (74-106); MAGNESIUM 2.5 mg/dL (1.8-2.4); PHOSPHORUS 6.8 mg/dL (2.5-4.9); POTASSIUM 3.9 mmol/L (3.5-5.1); SODIUM SERUM 135 mmol/L (136-145)
[2019-10-12 08:00] VITALS: BP 121/62
[2019-10-12] MEDS: BUDESONIDE RESPULE INH 0.5 MG/2 ML AMPUL.NEB IH SCH ×2 (08:00→19:56)
[2019-10-12] MEDS: ACETYLCYSTEINE 10% SOLN 400 MG/4 ML VIAL NEB SCH ×2 (08:01→14:38)
[2019-10-12 08:05] LABS: UREA NITROGEN, BLOOD 83 mg/dL (7-18)
[2019-10-12] MEDS: LEVOTHYROXINE SODIUM 88 MCG TABLET GT SCH (08:15)
[2019-10-12] MEDS: DILTIAZEM HCL CD 240 MG NG SCH (08:15)
[2019-10-12] MEDS: PROSOURCE / PROSTAT (PYXIS) 30 ML UDC GT SCH ×3 (08:15→17:34)
[2019-10-12] MEDS: SUCRALFATE 1 G/10 ML UDC GT SCH (08:16)
[2019-10-12] MEDS: DOCUSATE SODIUM LIQ 100 MG/10 ML UDC GT SCH ×2 (08:16→17:33)
[2019-10-12] MEDS: MULTIVIT W/MINERALS 1 TAB TABLET GT SCH (08:16)
[2019-10-12] MEDS: MINERAL OIL/PETROLATUM,WHITE 120 GM JAR TP SCH (08:18)
[2019-10-12] MEDS: CLOTRIMAZOLE 1% 15 GM TUBE TP SCH ×2 (08:19→17:34)
[2019-10-12] MEDS: NYSTATIN OINT 100000 UNIT/G 15 GM TUBE TP SCH ×3 (08:19→17:34)
--- NOTE | 2019-10-12 08:20 | NUR ---
SUPERVISOR DRY CELL ASSEMBLY NOTE CRITICAL LAB VALUE BUN 83 MADE AWARE TO RIANA ROBLEDO.
[2019-10-12] MEDS: SEVELAMER CARBONATE 0.8 GM POWD.PACK GT SCH ×2 (12:12→17:33)
--- NOTE | 2019-10-12 12:29 | NUR ---
CHEF GERMAN NOTE PATIENT BLOOD SUGAR IS 123. NO INSULIN NEEDED PER PROTOCOL.
[2019-10-12 16:00] VITALS: BP 112/61
--- NOTE | 2019-10-12 17:38 | NUR ---
PURIFICATION DIRECTOR NOTE PATIENT BLOOD SUGAR IS 112. NO INSULIN NEEDED PER PROTOCOL.
--- NOTE | 2019-10-12 18:44 | NUR ---
DEVELOPMENT OFFICER CLOSING NOTE PATIENT IN BED RESTING COMFORTABLY. PATIENT ON VENT, TOLERATING VENT SETTINGS WELL. PATIENT IN NO ACUTE DISTRESS. NO SOB NOTED. PATIENT BREATHING IS EVEN AND UNLABORED. PATIENT ON CARDIAC MONITORING READING AFIB HR 67. PATIENT KEPT CLEAN, DRY AND COMFORTABLE THROUGHOUT SHIFT. PATIENT TURNED AND REPOSITIONED Q2H. PATIENT HOB IS ELEVATED. BED ALARM IS ON. SAFETY PRECAUTIONS IN PLACE. PATIENT BED IS LOCKED AND IN LOWEST POSITION. CALL LIGHT WITHIN REACH. WILL ENDORSE CARE TO PM SHIFT FOR REESE.
--- NOTE | 2019-10-12 19:45 | NUR ---
RN OPEN NOTES PATIENT IS LAYING IN BED. [facility] TOL[facility]ATING WELL. BED IS IN LOWEST LOCKED POSITION WITH SIDE RAILS UP, SEMI FOWLERS. CALL LIGHT IS WITHIN REACH. NO COMPLAINTS OF PAIN AT THE MOMENT. NO SOB/ ACUTE RESPIRATORY DISTRESS NOTED. WILL CONTINUE TO MONITOR.
[2019-10-12 20:00] VITALS: BP 106/52
[2019-10-12] MEDS: ATORVASTATIN 10 MG TABLET GT SCH (21:24)
[2019-10-12] MEDS: QUETIAPINE FUMARATE 100 MG TABLET GT SCH (21:24)
[2019-10-12] MEDS: TAMSULOSIN 0.4 MG CAP.SR.24H GT SCH (21:24)
[2019-10-12] MEDS: LORAZEPAM 1 MG TABLET GT PRN (22:01)
--- NOTE | 2019-10-12 22:01 | NUR ---
RN NOTES ADMINISTERED ATIVAN 1 MG Q6HR PRN. WILL CONTINUE TO MONITOR.
[2019-10-12] MEDS: INSULIN REGULAR, HUMAN 100 UNIT/ML 3 ML VIAL SQ PRN (23:36)
[2019-10-13] VITALS: BP 110/55
[2019-10-13] MEDS: ACETYLCYSTEINE 10% SOLN 400 MG/4 ML VIAL NEB SCH ×4 (00:07→23:55)
[2019-10-13 00:11] VITALS: BP 110/55
[2019-10-13] MEDS: ALBUTEROL FS 2.5 MG/3 ML VIAL.NEB NEB SCH ×4 (01:49→19:49)
[2019-10-13] MEDS: IPRATROPIUM NEB FS 0.5 MG/2.5 ML AMPUL.NEB NEB SCH ×4 (01:49→19:49)
[2019-10-13 04:00] VITALS: BP 114/53
[2019-10-13] MEDS: BLOOD SUGAR DIAGNOSTIC 1 EACH STRIP IN SCH ×4 (05:16→23:49)
--- NOTE | 2019-10-13 06:29 | NUR ---
RN CLOSE NOTES PATIENT IS WATCHING TV IN BED, TOLERATING MECH VENT WELL. NO SOB/ ACUTE RESPIRATORY DISTRESS NOTED. BED IS IN LOWEST LOCKED POSITION WITH SIDE RAILS UP, SEMI FOWLERS. BED ALARM IS ON. ALL DUE MEDS GIVEN. IV ON L HAND #22G IS PATENT AND INTACT. APPEARS COMFORTABLE/ NO COMPLAINTS OF PAIN AT THE MOMENT. CALL LIGHT IS WITHIN REACH. WILL ENDORSE TO AM NURSE.
[2019-10-13] MEDS: NEPRO 1,000 ML BOTTLE GT PRN (06:53)
[2019-10-13] MEDS: BUDESONIDE RESPULE INH 0.5 MG/2 ML AMPUL.NEB IH SCH ×2 (07:48→19:49)
[2019-10-13 08:00] VITALS: BP 117/54
--- NOTE | 2019-10-13 08:00 | NUR ---
KNITTING MACHINE FIXER HEAD OPENING NOTES Received Patient resting in bed. A/O x 3. VS stable with no acute distress. Breathing even and unlabored on trachea and vent with no respiratory distress. Denies pain. No signs and symptoms of pain. Telemonitor in place and patent reading AFib with HR-72. GTube in place and patent with Nephro infusing at 45ml/hr. Leija Cath in place and patent with clear maurice coloured output noted. 22g PIV on Left Hand clean, intact, patent and flushing well. Safety precautions in place. Bed locked and set to lowest position with side rails x 2 up. All needs rendered at this time. Call light within reach. Will continue to monitor.
[2019-10-13 08:06] LABS: BASOPHILS # (AUTO) 0.1 /CMM (0.0-0.2); BASOPHILS % (AUTO) 0.7 % (0.0-2.0); EOSINOPHILS % (AUTO) 8.6 % (0.0-6.0); HEMATOCRIT 22 % (39-51); HEMOGLOBIN 7.2 g/dL (13.5-17.5); LYMPHOCYTES % (AUTO) 19.1 % (20.0-44.0); MEAN CORPUSCULAR HGB CONC 32 g/dl (31.0-36.0); MEAN CORPUSCULAR VOLUME 93 fL (80-96); MONOCYTES # (AUTO) 1.6 /CMM (0.1-1.30); MONOCYTES % (AUTO) 15.4 % (2.0-12.0); NEUTROPHILS # (AUTO) 5.8 /CMM (1.8-8.9); NEUTROPHILS % (AUTO) 56.2 % (43.0-81.0); PLATELET COUNT (AUTO) 243 /CMM (150-450); RED BLOOD CELL COUNT(AUTO) 2.41 MIL/uL (4.5-6.0); WHITE BLOOD COUNT (AUTO) 10.3 K/uL (4.3-11.0)
[2019-10-13 08:22] LABS: CALCIUM, SERUM 8.4 mg/dL (8.5-10.1); CARBON DIOXIDE 30 mmol/L (21-32); CHLORIDE 98 mmol/L (98-107); CREATININE 5.4 mg/dL (0.6-1.3); GLUCOSE 118 mg/dL (74-106); MAGNESIUM 2.4 mg/dL (1.8-2.4); PHOSPHORUS 5.4 mg/dL (2.5-4.9); POTASSIUM 3.5 mmol/L (3.5-5.1); SODIUM SERUM 135 mmol/L (136-145); UREA NITROGEN, BLOOD 67 mg/dL (7-18)
[2019-10-13] MEDS: LEVOTHYROXINE SODIUM 88 MCG TABLET GT SCH (08:33)
[2019-10-13] MEDS: DOCUSATE SODIUM LIQ 100 MG/10 ML UDC GT SCH ×2 (08:33→17:05)
[2019-10-13] MEDS: MULTIVIT W/MINERALS 1 TAB TABLET GT SCH (08:33)
[2019-10-13] MEDS: SUCRALFATE 1 G/10 ML UDC GT SCH (08:33)
[2019-10-13] MEDS: SEVELAMER CARBONATE 0.8 GM POWD.PACK GT SCH ×3 (08:33→17:06)
[2019-10-13] MEDS: DILTIAZEM HCL CD 240 MG NG SCH (08:34)
[2019-10-13] MEDS: PROSOURCE / PROSTAT (PYXIS) 30 ML UDC GT SCH ×3 (08:35→17:05)
[2019-10-13] MEDS: NYSTATIN OINT 100000 UNIT/G 15 GM TUBE TP SCH ×3 (08:36→17:05)
[2019-10-13] MEDS: CLOTRIMAZOLE 1% 15 GM TUBE TP SCH ×2 (08:36→17:05)
[2019-10-13] MEDS: MINERAL OIL/PETROLATUM,WHITE 120 GM JAR TP SCH (08:36)
--- NOTE | 2019-10-13 09:56 | NUR ---
RT NOTE PT RCVD TRACH'D ON MECHANICAL VENT WITH CHARTED SETTINGS. PT [place] TX WELL. SX DONE. PT TRACH IS PATENT AND SECURE. VENT ALARMS ARE ON AND AUDIBLE. VENT PLUGGED INTO RED OUTLET. AMBU BAG AT BEDSIDE. NO SOB NOTED. Addendum: 10/13/19 at 0956 by JEFF GARCIA RT Amended: Links added.
[2019-10-13] MEDS: INSULIN REGULAR, HUMAN 100 UNIT/ML 3 ML VIAL SQ PRN ×2 (13:04→23:50)
[2019-10-13 16:00] VITALS: BP 115/58
--- NOTE | 2019-10-13 18:42 | NUR ---
CORPORATE SALES REPRESENTATIVE CLOSING NOTES Patient resting in bed. A/O x 3. VS stable with no acute distress. Breathing even and unlabored on trachea and vent with no respiratory distress. Denies pain. No signs and symptoms of pain. Telemonitor in place and patent reading AFib with HR-72. GTube in place and patent with Nephro infusing at 45ml/hr. Leija Cath in place and patent. 22g PIV on Left Hand clean, intact, patent and flushing well. Safety precautions in place. Bed locked and set to lowest position with side rails x 2 up. All needs rendered at this time. Call light within reach. Will endorse plan of care to oncoming shift.
--- NOTE | 2019-10-13 19:30 | NUR ---
CIRCUIT BOARD ASSEMBLER OPENING NOTES RECEIVED PATIENT IN BED ALERT AND ORIENTED X 3. VERBALLY RESPONSIVE AND ABLE TO FOLLOW DIRECTIONS. TRACHEOSTOMY INTACT CONNECTED TO MECHANICAL VENTILATOR, CURRENT SETTINGS TOLERATING WELL. LATEST SPO2 96%. BREATHING REGULAR AND UNLABORED. LEFT HAND G22 IV LINE INTACT AND PATENT, FLUSHING WELL WITH NO BLEEDING OR S/S OF INFILTRATION NOTED. ON CARDIAC MONITORING WITH ATRIAL FIBRILLATION AT 78bpm. GTUBE PATENT WITH NO RESIDUAL ASPIRATED. DAILEY CATH PATENT WITH NO OUTPUT NOTED. NO COMPLAINTS OF PAIN/DISCOMFORT REPORTED AT THIS TIME. ON ASPIRATION PRECAUTION. BED LOW AND LOCKED ON SEMI FOWLERS POSITION. CALL LIGHT IN REACH. WILL CONTINUE TO MONITOR.
[2019-10-13 20:00] VITALS: BP_SYST 100; BP_DIAS 46; BP_DIAS 50
[2019-10-13] MEDS: ATORVASTATIN 10 MG TABLET GT SCH (21:45)
[2019-10-13] MEDS: TAMSULOSIN 0.4 MG CAP.SR.24H GT SCH (21:45)
[2019-10-13] MEDS: QUETIAPINE FUMARATE 100 MG TABLET GT SCH (21:45)
[2019-10-14] VITALS: BP 100/38
--- NOTE | 2019-10-14 | NUR ---
ORNAMENTER NOTES BS 151mg/dl, 2UNITS REGULAR INSULIN GIVEN SQ. GTUBE FEEDING TOLERATING WELL. WILL CONTINUE TO MONITOR.
[2019-10-14] MEDS: ALBUTEROL FS 2.5 MG/3 ML VIAL.NEB NEB SCH ×4 (02:28→19:45)
[2019-10-14] MEDS: IPRATROPIUM NEB FS 0.5 MG/2.5 ML AMPUL.NEB NEB SCH ×4 (02:28→19:45)
--- NOTE | 2019-10-14 02:30 | NUR ---
RT Pt catrachito remains on [facility] AC settings t/o the night. no resp distress noted. svn given inline. Trach secure and patent. Addendum: 10/14/19 at 0232 by AMPARO CABALLERO RT Amended: Links added.
[2019-10-14 04:01] VITALS: BP 107/42
[2019-10-14] MEDS: NEPRO 1,000 ML BOTTLE GT PRN (05:33)
[2019-10-14] MEDS: BLOOD SUGAR DIAGNOSTIC 1 EACH STRIP IN SCH ×3 (05:35→18:15)
[2019-10-14] MEDS: INSULIN REGULAR, HUMAN 100 UNIT/ML 3 ML VIAL SQ PRN ×2 (05:35→12:28)
--- NOTE | 2019-10-14 06:25 | NUR ---
SEO INTERN CLOSING NOTES PATIENT IN BED ALERT AND ORIENTED X 3. TRACHEOSTOMY INTACT CONNECTED TO MECHANICAL VENTILATOR, CURRENT SETTINGS TOLERATING WELL WITH NO EPISODE OF DISTRESS NOTED THE WHOLE SHIFT. LEFT HAND G22 IV LINE PATENT AND FLUSHING WELL. MAINTAINED ON CARDIAC MONITORING WITH ATRIAL FIBRILLATION AT 75bpm. GTUBE PATENT ON-GOING FEEDING TOLERATING WELL. NO COMPLAINTS OF PAIN/DISCOMFORT REPORTED. BED LOW AND LOCKED ON SEMI FOWLERS POSITION. CALL LIGHT IN REACH. WILL ENDORSE TO MORNING SHIFT FOR REESE.
[2019-10-14] MEDS: ACETYLCYSTEINE 10% SOLN 400 MG/4 ML VIAL NEB SCH ×2 (07:24→14:55)
[2019-10-14 07:25] LABS: BASOPHILS % (AUTO) 0.5 % (0.0-2.0); EOSINOPHILS % (AUTO) 7.3 % (0.0-6.0); HEMATOCRIT 23 % (39-51); HEMOGLOBIN 7.4 g/dL (13.5-17.5); LYMPHOCYTES # (AUTO) 1.9 /CMM (0.8-4.8); LYMPHOCYTES % (AUTO) 19.6 % (20.0-44.0); MEAN CORPUSCULAR HGB CONC 33 g/dl (31.0-36.0); MEAN CORPUSCULAR VOLUME 93 fL (80-96); MONOCYTES # (AUTO) 1.6 /CMM (0.1-1.30); MONOCYTES % (AUTO) 16.2 % (2.0-12.0); NEUTROPHILS # (AUTO) 5.4 /CMM (1.8-8.9); NEUTROPHILS % (AUTO) 56.4 % (43.0-81.0); PLATELET COUNT (AUTO) 252 /CMM (150-450); RED BLOOD CELL COUNT(AUTO) 2.43 MIL/uL (4.5-6.0); WHITE BLOOD COUNT (AUTO) 9.6 K/uL (4.3-11.0)
[2019-10-14] MEDS: BUDESONIDE RESPULE INH 0.5 MG/2 ML AMPUL.NEB IH SCH ×2 (07:48→19:45)
[2019-10-14 07:49] LABS: CALCIUM, SERUM 8.7 mg/dL (8.5-10.1); CARBON DIOXIDE 30 mmol/L (21-32); CHLORIDE 97 mmol/L (98-107); CREATININE 6.1 mg/dL (0.6-1.3); GLUCOSE 131 mg/dL (74-106); MAGNESIUM 2.5 mg/dL (1.8-2.4); PHOSPHORUS 5.7 mg/dL (2.5-4.9); POTASSIUM 3.8 mmol/L (3.5-5.1); SODIUM SERUM 134 mmol/L (136-145)
[2019-10-14 07:57] LABS: UREA NITROGEN, BLOOD 86 mg/dL (7-18)
[2019-10-14 08:00] VITALS: BP 107/49
--- NOTE | 2019-10-14 08:00 | NUR ---
FRACTIONATING STILL OPERATOR NOTES PATIENT IN BED SLEEPING. PATIENT VENT DEPENDED, VENT SETTINGS NOTED. BED IN LOW LOCKED POSITION. CALL LIGHT WITHIN REACH. WILL CONTINUE TO MONITOR.
--- NOTE | 2019-10-14 08:23 | NUR ---
PT RECEIVED ON CURRENT SETTINGS WITH NO SIGNS OF RESPIRATORY DISTRESS. AIRWAY IS PATENT AND SECURE. NEBULIZER TX GIVEN WITH NO ADVERSE REACTION NOTED. VENT IS PLUGGED INTO RED OUTLET WITH ALARMS ON AND AUDIBLE. SUCTION PT NEEDED. WILL CONTINUE TO MONITOR. Addendum: 10/14/19 at 0823 by RACHAEL PATEL RT Amended: Links added.
--- NOTE | 2019-10-14 08:25 | NUR ---
DIRECTOR ATHLETIC NOTES PATIENT RECEIVING HD CURRENTLY WILL CONTINUE TO MONITOR.
[2019-10-14] MEDS: SEVELAMER CARBONATE 0.8 GM POWD.PACK GT SCH ×3 (08:53→17:33)
[2019-10-14] MEDS: LEVOTHYROXINE SODIUM 88 MCG TABLET GT SCH (08:53)
[2019-10-14] MEDS: DILTIAZEM HCL CD 240 MG NG SCH (09:00)
[2019-10-14] MEDS: SUCRALFATE 1 G/10 ML UDC GT SCH (10:23)
[2019-10-14] MEDS: MULTIVIT W/MINERALS 1 TAB TABLET GT SCH (10:24)
[2019-10-14] MEDS: DOCUSATE SODIUM LIQ 100 MG/10 ML UDC GT SCH ×2 (10:24→17:33)
[2019-10-14] MEDS: PROSOURCE / PROSTAT (PYXIS) 30 ML UDC GT SCH ×3 (10:37→17:33)
[2019-10-14] MEDS: MINERAL OIL/PETROLATUM,WHITE 120 GM JAR TP SCH (10:51)
[2019-10-14] MEDS: CLOTRIMAZOLE 1% 15 GM TUBE TP SCH ×2 (10:51→17:34)
[2019-10-14] MEDS: NYSTATIN OINT 100000 UNIT/G 15 GM TUBE TP SCH ×3 (10:52→17:35)
[2019-10-14] MEDS: ACETAMINOPHEN 325 MG TABLET PO PRN (12:12)
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
[2019-10-14 16:00] VITALS: BP 110/43
--- NOTE | 2019-10-14 19:00 | NUR ---
SUBSTATION WIREMAN NOTES PATIENT IN BED RESTING NO SOB OR ACUTE DISTRESS NOTED. ALL DUE MEDICATIONS ADMINISTERED. ALL NEEDS MET. NO ACUTE CHANGES NOTED. PATIENT POST HD. BED IN LOW LOCKED POSITION. CALL LIGHT WITHIN REACH. WILL ENDORSE CARE TO PM SHIFT.
--- NOTE | 2019-10-14 19:15 | NUR ---
RN OPENING NOTES Received patient asleep, on vent with current settings tolerated well, no SOB/respiratory distress noted at this time. On tele monitor with controlled A-Fib noted. With GTF infusing well, no N/V noted, abdomen soft and non-tender. Kept on bed clean, dry and comfortable. On fall and aspiration precautions. Will continue to monitor accordingly.
[2019-10-14 20:00] VITALS: BP 119/60
[2019-10-14] MEDS: QUETIAPINE FUMARATE 100 MG TABLET GT SCH (21:44)
[2019-10-14] MEDS: ATORVASTATIN 10 MG TABLET GT SCH (21:44)
[2019-10-14] MEDS: TAMSULOSIN 0.4 MG CAP.SR.24H GT SCH (21:44)
[2019-10-14 23:52] VITALS: BP 103/52
[2019-10-15] MEDS: ACETYLCYSTEINE 10% SOLN 400 MG/4 ML VIAL NEB SCH ×3 (00:02→14:33)
[2019-10-15] MEDS: BLOOD SUGAR DIAGNOSTIC 1 EACH STRIP IN SCH ×4 (00:19→17:37)
[2019-10-15] MEDS: INSULIN REGULAR, HUMAN 100 UNIT/ML 3 ML VIAL SQ PRN ×2 (00:20→06:17)
[2019-10-15] MEDS: IPRATROPIUM NEB FS 0.5 MG/2.5 ML AMPUL.NEB NEB SCH ×4 (02:03→19:39)
[2019-10-15] MEDS: ALBUTEROL FS 2.5 MG/3 ML VIAL.NEB NEB SCH ×4 (02:03→19:39)
[2019-10-15 02:44] VITALS: BP 119/60
[2019-10-15 04:21] VITALS: BP 130/58
[2019-10-15] MEDS: NEPRO 1,000 ML BOTTLE GT PRN (06:00)
--- NOTE | 2019-10-15 06:37 | NUR ---
RN CLOSING NOTES Patient asleep, easily awaken. On vent, current settings well tolerated, saturating 100%, no respiratory distress noted. All due meds given as ordered. All nursing needs attended. No new unusualities noted. On tele monitor with controlled A-Fib noted. Kept on bed clean, dry and comfortable. On fall and aspiration precautions. Endorsed.
--- NOTE | 2019-10-15 07:30 | NUR ---
Tele/RN Opening Note Received patient AO x 3, able to responds all stimuli. Pt is on ventilator keep intact ostomy and dressing, respiratory even and unlabored O2sat 97-100% with oxygen, noticed cough occasionally. Skin is warm to touch, kept clean/dry, intact IV site. Kept low bed position with locked wheel and elevated head of bed for secure airway. Call light within reach, will continue to monitor.
[2019-10-15] MEDS: BUDESONIDE RESPULE INH 0.5 MG/2 ML AMPUL.NEB IH SCH ×2 (07:33→19:39)
[2019-10-15 08:00] VITALS: BP 112/54
[2019-10-15] MEDS: SEVELAMER CARBONATE 0.8 GM POWD.PACK GT SCH ×3 (08:03→17:35)
[2019-10-15] MEDS: LEVOTHYROXINE SODIUM 88 MCG TABLET GT SCH (08:03)
[2019-10-15] MEDS: ACETAMINOPHEN 325 MG TABLET PO PRN (08:03)
--- NOTE | 2019-10-15 08:11 | NUR ---
WOUND CARE FOLLOW UP: PT SEEN FOR REASSESSMENT OF SACRAL AND BUTTOCK WOUNDS WHICH WERE PRESENT ON ADMISSION. WOUND BED CHANGES NOTED AND DOCUMENTED. NO SIGN OF INFECTION NOTED. RASH IS RESOLVED. RECOMMENDATIONS MADE FOR WOUND CARE AND SKIN PROTECTION. DISCUSSED WITH NURSING STAFF. RENE ISOFLEX LOW AIRLOSS BED TO BE PLACED. MD IN AGREEMENT WITH PLAN OF CARE. WILL SEE PRN.
[2019-10-15] MEDS ORDERED: HYDROGEL DRESSING 90 GM TUBE TP PRN (08:30)
[2019-10-15] MEDS: PROSOURCE / PROSTAT (PYXIS) 30 ML UDC GT SCH ×3 (08:58→17:35)
[2019-10-15] MEDS: SUCRALFATE 1 G/10 ML UDC GT SCH (08:58)
[2019-10-15] MEDS: DOCUSATE SODIUM LIQ 100 MG/10 ML UDC GT SCH ×2 (08:58→17:35)
[2019-10-15] MEDS: DILTIAZEM HCL CD 240 MG NG SCH (08:59)
[2019-10-15] MEDS: MULTIVIT W/MINERALS 1 TAB TABLET GT SCH (08:59)
[2019-10-15] MEDS: MINERAL OIL/PETROLATUM,WHITE 120 GM JAR TP SCH (09:00)
[2019-10-15] MEDS: CLOTRIMAZOLE 1% 15 GM TUBE TP SCH ×2 (09:00→17:36)
[2019-10-15] MEDS: NYSTATIN OINT 100000 UNIT/G 15 GM TUBE TP SCH ×3 (09:01→17:36)
[2019-10-15] MEDS: HYDROGEL DRESSING 90 GM TUBE TP SCH (09:11)
[2019-10-15 16:00] VITALS: BP 118/55
--- NOTE | 2019-10-15 18:30 | NUR ---
Tele/RN Closing Note Patient in bed comfortably, does no appears pain or discomfort. apt is on ventilator, given suction and oral care, remains O2sat 98-100%. Skin is warm to touch, intact IV site and g-tube feeding running nephro at 45 ml/hr, no residual observed. Kept lower position of the bed with locked wheel and elevated head of bed for secure airway. Call light within reach, will endorse night patrol inspector.
[2019-10-15 20:47] VITALS: BP 90/48
[2019-10-15] MEDS: QUETIAPINE FUMARATE 100 MG TABLET GT SCH (21:42)
[2019-10-15] MEDS: TAMSULOSIN 0.4 MG CAP.SR.24H GT SCH (21:42)
[2019-10-15] MEDS: ATORVASTATIN 10 MG TABLET GT SCH (21:42)
[2019-10-16] MEDS: ACETYLCYSTEINE 10% SOLN 400 MG/4 ML VIAL NEB SCH ×4 (00:29→23:18)
[2019-10-16] MEDS: ALBUTEROL FS 2.5 MG/3 ML VIAL.NEB NEB SCH ×4 (00:30→19:53)
[2019-10-16] MEDS: IPRATROPIUM NEB FS 0.5 MG/2.5 ML AMPUL.NEB NEB SCH ×4 (00:31→19:53)
[2019-10-16 00:35] VITALS: BP 115/46
[2019-10-16] MEDS: INSULIN REGULAR, HUMAN 100 UNIT/ML 3 ML VIAL SQ PRN ×5 (00:55→23:42)
[2019-10-16] MEDS: NEPRO 1,000 ML BOTTLE GT PRN (00:59)
[2019-10-16] MEDS: BLOOD SUGAR DIAGNOSTIC 1 EACH STRIP IN SCH ×5 (01:09→23:41)
[2019-10-16 04:00] VITALS: BP 100/54
--- NOTE | 2019-10-16 07:25 | NUR ---
HOUSE FURNISHINGS SUPERVISOR OPENING NOTES RECEIVED PT IN BED, ASLEEP, EASILY AROUSED, A/OX2-3. PT TOLERATING CURRENT VENT SETTING, WITH NO ACUTE RESPIRATORY DISTRESS NOTED. PT NOT EXHIBITING PAIN OR ANY DISCOMFORT AT THIS TIME. PT ON TELEMONITORING WITH SR 85. RCW HD ACCESS NOTED. FC IN PLACE WITH YELLOW URINE IN THE BAG. PT KEPT COMFORTABLE. CALL LIGHT KEPT WITHIN REACH. PT'S BED IN LOWEST, LOCKED, POSITION WITH SR X3. WILL CONTINUE PLAN OF CARE.
[2019-10-16] MEDS: BUDESONIDE RESPULE INH 0.5 MG/2 ML AMPUL.NEB IH SCH ×2 (07:41→19:53)
[2019-10-16 08:00] VITALS: BP 122/52
[2019-10-16 08:26] VITALS: BP 102/52
--- NOTE | 2019-10-16 08:30 | NUR ---
ROADS SUPERVISOR NOTES PT BEING DIALYZE AT THIS TIME. SCHEDULED MORNING MEDICINES WILLBE GIVEN AFTER DIALYSIS. WILL CONTINUE TO MONITOR PT.
--- NOTE | 2019-10-16 10:00 | NUR ---
MELISSA and disease case manager rn Betina met with the pt bedside. Pt is alert and oriented. Pt is able to make his needs known. Pt gave verbal consent by stating it is okay to call his ex- and niece to discuss further plan of care. manager intensive care unit Betina spoke with pt's niece Starla, who wants to set up a phone conference call with pt's doctor to discuss plan of care. Phone conference has been set up for 1PM today with Dr. Power.
--- NOTE | 2019-10-16 10:00 | NUR ---
SERVICE UNIT OPERATOR NOTES PT DONE BEING DIALYZE. NO OUTPUT, CLEANING ONLY PER DIALYSIS NURSE/MARISOL. PT HAS STABLE VS. WILL CONTINUE PLAN OF CARE.
[2019-10-16] MEDS: LEVOTHYROXINE SODIUM 88 MCG TABLET GT SCH (10:25)
[2019-10-16] MEDS: DOCUSATE SODIUM LIQ 100 MG/10 ML UDC GT SCH ×2 (10:25→16:31)
[2019-10-16] MEDS: MULTIVIT W/MINERALS 1 TAB TABLET GT SCH (10:25)
[2019-10-16] MEDS: SUCRALFATE 1 G/10 ML UDC GT SCH (10:26)
[2019-10-16] MEDS: PROSOURCE / PROSTAT (PYXIS) 30 ML UDC GT SCH ×3 (10:26→16:31)
[2019-10-16] MEDS: SEVELAMER CARBONATE 0.8 GM POWD.PACK GT SCH ×3 (10:26→17:03)
[2019-10-16] MEDS: DILTIAZEM HCL CD 240 MG NG SCH (10:26)
[2019-10-16] MEDS: HYDROGEL DRESSING 90 GM TUBE TP SCH (10:27)
[2019-10-16] MEDS: NYSTATIN OINT 100000 UNIT/G 15 GM TUBE TP SCH ×3 (10:28→16:43)
[2019-10-16] MEDS: CLOTRIMAZOLE 1% 15 GM TUBE TP SCH ×2 (10:28→16:42)
[2019-10-16] MEDS: MINERAL OIL/PETROLATUM,WHITE 120 GM JAR TP SCH (10:28)
--- NOTE | 2019-10-16 14:32 | NUR ---
global implementation manager Betina held a phone conference with Dr. Power and pt's niece Starla. OUTSIDE SALESPERSON was present. Per Dr. Power and pt's niece, he will speak with the pt. in detail regarding his medical diagnosis and outcomes and f/u with pt's niece Starla . Per Starla, she will be the person of contact for the family since per Starla, pt's ex- gets too emotional. Addendum: 10/16/19 at 1445 by KEM MCDONALD global implementation manager Betina to call pt's congregate to inquire if pt has an living will or an Advance Directive. Per juan, pt 's sister might be listed as a principal agent but not sure.
[2019-10-16 16:06] VITALS: BP 104/54
--- NOTE | 2019-10-16 18:37 | NUR ---
ACADEMIC SUPPORT COORDINATOR CLOSING NOTES PT REMAINS IN BED, ASLEEP, EASILY AROUSED, A/OX2-3. PT TOLERATING CURRENT VENT SETTING, WITH NO ACUTE RESPIRATORY DISTRESS NOTED. PT DENIES PAIN OR ANY DISCOMFORT AT THIS TIME. PT ON TELEMONITORING WITH SR 85. RCW HD ACCESS NOTED. FC IN PLACE WITH YELLOW URINE IN THE BAG. PT KEPT COMFORTABLE. ALL NEEDS AND CARE ATTENDED AND PROVIDED. CALL LIGHT KEPT WITHIN REACH. PT'S BED IN LOWEST, LOCKED, POSITION WITH SR X3. WILL ENDORSE TO INCOMING NIGHT NURSE FOR REESE.
[2019-10-16 20:00] VITALS: BP 112/50
--- NOTE | 2019-10-16 20:00 | NUR ---
RN NOTES RECEIVED PT. SLEEPING BUT AROUSABLE, VENT DEPENDENT , NOT IN DISTRESS, A-FIB ON TELE MONITOR HR-89, F/C DRAINING CLEAR YELLOW URINE, G-TUBE FEEDING IN PLACE, NO RESIDUAL NOTED, SIDERAILSUPX2, CONTINUE TO MONITOR
[2019-10-16] MEDS: TAMSULOSIN 0.4 MG CAP.SR.24H GT SCH (21:27)
[2019-10-16] MEDS: QUETIAPINE FUMARATE 100 MG TABLET GT SCH (21:27)
[2019-10-16] MEDS: ATORVASTATIN 10 MG TABLET GT SCH (21:27)
[2019-10-17] VITALS: BP 106/48
[2019-10-17] MEDS: IPRATROPIUM NEB FS 0.5 MG/2.5 ML AMPUL.NEB NEB SCH ×4 (01:50→19:39)
[2019-10-17] MEDS: ALBUTEROL FS 2.5 MG/3 ML VIAL.NEB NEB SCH ×4 (01:50→19:39)
[2019-10-17] MEDS: NEPRO 1,000 ML BOTTLE GT PRN (03:24)
[2019-10-17 04:00] VITALS: BP 112/60
[2019-10-17] MEDS: BLOOD SUGAR DIAGNOSTIC 1 EACH STRIP IN SCH ×4 (06:05→23:32)
[2019-10-17] MEDS: INSULIN REGULAR, HUMAN 100 UNIT/ML 3 ML VIAL SQ PRN ×4 (06:13→23:35)
--- NOTE | 2019-10-17 06:30 | NUR ---
RN NOTES SLEEPING BUT AROUSABLE, NOT IN DISTRESS, FEEDING IN PLACE, NO RESIDUAL NOTED,SIDERAILSUPX2, PT. NEEDS ATTENDED
[2019-10-17] MEDS: BUDESONIDE RESPULE INH 0.5 MG/2 ML AMPUL.NEB IH SCH ×2 (07:22→19:39)
[2019-10-17] MEDS: ACETYLCYSTEINE 10% SOLN 400 MG/4 ML VIAL NEB SCH ×3 (07:23→22:44)
--- NOTE | 2019-10-17 07:45 | NUR ---
SAFETY PROFESSIONAL NOTES PATIENT IN BED SLEEPING NO SOB OR ACUTE DISTRESS NOTED. PATIENT VENT DEPENDENT. VENT SETTINGS NOTED. BED IN LOW LOCKED POSITION. CALL LIGHT WITHIN REACH. WILL CONTINUE TO MONITOR.
[2019-10-17 07:54] LABS: ALANINE AMINOTRANSFERASE 8 U/L (12-78); ALBUMIN 1.7 g/dL (3.4-5.0); ALKALINE PHOSPHATASE 72 U/L (46-116); ASPARTATE AMINOTRANSFERASE 9 U/L (15-37); BILIRUBIN,TOTAL 0.2 mg/dL (0.2-1.0); CALCIUM, SERUM 8.8 mg/dL (8.5-10.1); CARBON DIOXIDE 25 mmol/L (21-32); CHLORIDE 96 mmol/L (98-107); CREATININE 5.6 mg/dL (0.6-1.3); GLUCOSE 138 mg/dL (74-106); MAGNESIUM 2.5 mg/dL (1.8-2.4); PHOSPHORUS 5.1 mg/dL (2.5-4.9); POTASSIUM 3.6 mmol/L (3.5-5.1); SODIUM SERUM 132 mmol/L (136-145); TOTAL PROTEIN, SERUM 6.5 g/dL (6.4-8.2)
[2019-10-17 08:00] VITALS: BP 145/55
[2019-10-17 08:07] LABS: UREA NITROGEN, BLOOD 80 mg/dL (7-18)
[2019-10-17] MEDS: DILTIAZEM HCL CD 240 MG NG SCH (09:00)
[2019-10-17] MEDS: DOCUSATE SODIUM LIQ 100 MG/10 ML UDC GT SCH ×2 (09:04→17:02)
[2019-10-17] MEDS: SUCRALFATE 1 G/10 ML UDC GT SCH (09:04)
[2019-10-17] MEDS: MULTIVIT W/MINERALS 1 TAB TABLET GT SCH (09:04)
[2019-10-17] MEDS: LEVOTHYROXINE SODIUM 88 MCG TABLET GT SCH (09:05)
[2019-10-17] MEDS: SEVELAMER CARBONATE 0.8 GM POWD.PACK GT SCH ×4 (09:06→17:02)
[2019-10-17] MEDS: HYDROGEL DRESSING 90 GM TUBE TP SCH (09:07)
[2019-10-17] MEDS: PROSOURCE / PROSTAT (PYXIS) 30 ML UDC GT SCH ×3 (09:07→17:01)
[2019-10-17] MEDS: CLOTRIMAZOLE 1% 15 GM TUBE TP SCH ×2 (09:08→17:06)
[2019-10-17] MEDS: MINERAL OIL/PETROLATUM,WHITE 120 GM JAR TP SCH (09:09)
[2019-10-17] MEDS: NYSTATIN OINT 100000 UNIT/G 15 GM TUBE TP SCH ×3 (09:09→17:06)
--- NOTE | 2019-10-17 09:30 | NUR ---
MS RN NOTES CALL RECEIVED FROM LAB REPORTING HEMOGLOBIN OF 6.7, INFORMED DR. MCGRAW ORDERS RECEIVED FOR 1 UNIT OF PRBC. PATIENT REFUSING BLOOD TRANSFUSION. PATIENT STATES HE IS CONSIDERING END OF LIFE CARE. STATES HE WANTS TO SPEAK TO FAMILY BEFORE MAKING ANY DECISIONS.
[2019-10-17 09:39] LABS: BASOPHILS # (AUTO) 0.1 /CMM (0.0-0.2); BASOPHILS % (AUTO) 0.4 % (0.0-2.0); EOSINOPHILS % (AUTO) 5.2 % (0.0-6.0); HEMATOCRIT 21 % (39-51); LYMPHOCYTES # (AUTO) 2.4 /CMM (0.8-4.8); LYMPHOCYTES % (AUTO) 20.4 % (20.0-44.0); MEAN CORPUSCULAR HGB CONC 32 g/dl (31.0-36.0); MEAN CORPUSCULAR VOLUME 93 fL (80-96); MONOCYTES # (AUTO) 2.2 /CMM (0.1-1.30); MONOCYTES % (AUTO) 18.2 % (2.0-12.0); NEUTROPHILS # (AUTO) 6.7 /CMM (1.8-8.9); NEUTROPHILS % (AUTO) 55.8 % (43.0-81.0); PLATELET COUNT (AUTO) 268 /CMM (150-450); RED BLOOD CELL COUNT(AUTO) 2.26 MIL/uL (4.5-6.0)
[2019-10-17 09:44] LABS: HEMOGLOBIN 6.7 g/dL (13.5-17.5)
[2019-10-17 10:06] LABS: EOSINOPHILS % (MANUAL) 4 % (0-4); LYMPHOCYTES % (MANUAL) 15 % (16-48); MONOCYTES % (MANUAL) 14 % (0-11.0); NEUTROPHILS % (MANUAL) 67 (42-76)
--- NOTE | 2019-10-17 10:16 | NUR ---
End of Life Decision Note Met with patient who states" there is no good way for me". He says he "wants everything done for him right now". He says he does not want Hospice and would like to talk to his ex- Lilibeth but she cannot visit.There appears to be no official decision-maker for this patient and no documentation on record for an official decision-maker. Patient does seem to understand his condition on a superficial level. Left message for Dr Power now on his voicemail. If someone produces documentation then this discussion can be revisited. This clinician mentioned to patient that his niece, Starla, wanted him to consider Hospice but it was emphasized that this is his decision. Patient does not want palliative measures at this time.
--- NOTE | 2019-10-17 15:05 | NUR ---
METAPHYSICIAN was informed by field nurse case manager Betina, pt's niece and ex- are in pt's room bedside. Per Betina, pt wanted his ex- and niece present to discuss end of life options. JOSEPHINE Hale, TAMARA and field nurse case manager Betina met with the pt in his room accompanied by pt's niece Starla and ex-. JOSEPHINE Hale explained in detail the ramifications and outcomes if pt would stop dialysis. Pt reported he understood and wanted to continue with end of life care by removing dialysis. Family is in agreement. JOSEPHINE Hale to f/u with Dr. Power with plan of care.
--- NOTE | 2019-10-17 15:10 | NUR ---
MENTAL TELEPATHIST NOTES PATIENTS FAMILY AT PATIENTS BEDSIDE FOR PLANNING OF PATIENTS PLAN OF CARE. PATIENT VERBALIZED THAT HE DOES WISH TO STOP HD AND WISHES TO BE EVALUATED BY HOSPICE. PATIENT STATES HE DOES NOT WITH TO LEAVE ANY LONGER WITH THIS KIND OF QUALITY OF LIFE. PATIENTS EX AND NIECE AT BEDSIDE AGREE WITH PATIENT. GIS ANALYST MARY ELLEN ALSO AT BEDSIDE AND CRIME PREVENTION WORKER KEM. EXPLAINED TO PATIENT THE RECIPROCATIONS OF HIS DECISION AND WHAT WILL HAPPEN WHEN HD IS STOPPED. PATIENT VERBALIZED UNDERSTANDING STILL WISHES TO STOP HD AND START HOSPICE. HE STATES HE DOES NOT WISH TO CONTINUE TO LIVE WITH THIS KIND OF QUALITY OF LIFE. NOTED AND NOTIFIED
[2019-10-17 16:00] VITALS: BP 140/66
--- NOTE | 2019-10-17 19:15 | NUR ---
PHOTOVOLTAIC SOLAR CELL DESIGNER NOTES PATIENT IN BED RESTING NO SOB OR ACUTE DISTRESS NOTED. ALL DUE MEDICATIONS ADMINISTERED. ALL NEED MET. NO ACUTE CHANGES NOTED DURING SHIFT. WILL ENDORSE CARE TO PM SHIFT.
[2019-10-17 19:30] VITALS: BP 128/60
--- NOTE | 2019-10-17 19:48 | NUR ---
MIXER OPERATOR VACUUM PAN SALT NOTES PATIENT IN BED, ALERT AND ORIENTED X 3. BREATHING EVEN AND UNLABORED ON MV PORTEX 9 WITH TV 600 , FIO2 40% AC18 AND PEEP 5. TELE MONITOR AFIB. FC INTACT FLOWING YELLOW URINE. IV ON L FA 20G ITS CLEAN DRY AND INTACT. SHOWS NO SIGNS OF INFILTRATION, NO REDNESS. SAFETY PRECAUTIONS IN PLACE. BED IN LOWEST POSITION, LOCKED, AND CALL LIGHT KEPT WITHIN REACH. WILL CONTINUE TO MONITOR.
--- NOTE | 2019-10-17 20:01 | NUR ---
RT Pt trach remains on [facility] vent AC settings t/o the night. no resp distress noted. TX given inline. Trach secure and patent. alarms on and audible. will continue to monitor t/o shift. Addendum: 10/17/19 at 2002 by INA JEAN RT Amended: Links added.
[2019-10-17 20:28] VITALS: BP 128/60
[2019-10-17] MEDS: QUETIAPINE FUMARATE 100 MG TABLET GT SCH (21:03)
[2019-10-17] MEDS: ATORVASTATIN 10 MG TABLET GT SCH (21:03)
[2019-10-17] MEDS: TAMSULOSIN 0.4 MG CAP.SR.24H GT SCH (21:03)
[2019-10-18 00:21] VITALS: BP 104/55
[2019-10-18] MEDS: IPRATROPIUM NEB FS 0.5 MG/2.5 ML AMPUL.NEB NEB SCH ×2 (00:33→07:39)
[2019-10-18] MEDS: ALBUTEROL FS 2.5 MG/3 ML VIAL.NEB NEB SCH ×2 (00:33→07:39)
[2019-10-18] MEDS: ACETAMINOPHEN 325 MG TABLET PO PRN (01:54)
[2019-10-18] MEDS: NEPRO 1,000 ML BOTTLE GT PRN (04:04)
[2019-10-18] MEDS: BLOOD SUGAR DIAGNOSTIC 1 EACH STRIP IN SCH (06:37)
--- NOTE | 2019-10-18 06:38 | NUR ---
HOSPITAL SECRETARY NOTES PATIENT IN BED, ALERT AND ORIENTED X 3. BREATHING EVEN AND UNLABORED ON SAME MV SETTINGS. TELE MONITOR AFIB. FC INTACT FLOWING YELLOW URINE. IV ON L FA 20G ITS CLEAN DRY AND INTACT. SHOWS NO SIGNS OF INFILTRATION, NO REDNESS. SAFETY PRECAUTIONS IN PLACE. BED IN LOWEST POSITION, LOCKED, AND CALL LIGHT KEPT WITHIN REACH. WILL ENDORSE TO ONCOMING NURSE.
[2019-10-18] MEDS: ACETYLCYSTEINE 10% SOLN 400 MG/4 ML VIAL NEB SCH (07:39)
--- NOTE | 2019-10-18 07:46 | NUR ---
TELE/RN OPENING NOTES RECEIVED PATIENT IN BED, ALERT AND ORIENTED X 3. BREATHING EVEN AND UNLABORED ON SAME MV SETTINGS. TELE MONITOR AFIB 81. FC INTACT FLOWING YELLOW URINE. IV ON L FA 20G, RIGHT HD CATH, CLEAN DRY PATENT AND INTACT. SHOWS NO SIGNS OF INFILTRATION, NO REDNESS. SAFETY PRECAUTIONS IN PLACE. BED IN LOWEST POSITION, LOCKED, AND CALL LIGHT KEPT WITHIN REACH. WILL CONTINUE TO MONITOR.
[2019-10-18] MEDS: BUDESONIDE RESPULE INH 0.5 MG/2 ML AMPUL.NEB IH SCH (07:54)
[2019-10-18 08:00] VITALS: BP 112/55
[2019-10-18 08:04] LABS: BASOPHILS % (AUTO) 0.5 % (0.0-2.0); EOSINOPHILS % (AUTO) 4.7 % (0.0-6.0); HEMATOCRIT 21 % (39-51); LYMPHOCYTES # (AUTO) 1.7 /CMM (0.8-4.8); LYMPHOCYTES % (AUTO) 16.9 % (20.0-44.0); MEAN CORPUSCULAR HGB CONC 32 g/dl (31.0-36.0); MEAN CORPUSCULAR VOLUME 92 fL (80-96); MONOCYTES # (AUTO) 1.5 /CMM (0.1-1.30); MONOCYTES % (AUTO) 14.9 % (2.0-12.0); NEUTROPHILS # (AUTO) 6.4 /CMM (1.8-8.9); PLATELET COUNT (AUTO) 274 /CMM (150-450); RED BLOOD CELL COUNT(AUTO) 2.24 MIL/uL (4.5-6.0); WHITE BLOOD COUNT (AUTO) 10.1 K/uL (4.3-11.0)
[2019-10-18] MEDS: LEVOTHYROXINE SODIUM 88 MCG TABLET GT SCH (08:09)
[2019-10-18] MEDS: SEVELAMER CARBONATE 0.8 GM POWD.PACK GT SCH (08:09)
[2019-10-18 08:21] LABS: HEMOGLOBIN 6.6 g/dL (13.5-17.5)
--- NOTE | 2019-10-18 08:32 | NUR ---
TELE/RN NOTES PATIENT HGB 6.6 MD AND CHARGE NURSE IS AWARE. PATIENT REFUSED TO HAVE HEMODIALYSIS AND BLOOD TRANSFUSION, EXPLAINED THE RISK AND BENEFITS, PATIENT STILL REFUSING. WILL CONTINUE TO MONITOR.
[2019-10-18 08:35] LABS: EOSINOPHILS % (MANUAL) 2 % (0-4); LYMPHOCYTES % (MANUAL) 17 % (16-48); MONOCYTES % (MANUAL) 13 % (0-11.0); NEUTROPHILS % (MANUAL) 68 (42-76)
[2019-10-18] MEDS: MULTIVIT W/MINERALS 1 TAB TABLET GT SCH (09:31)
[2019-10-18] MEDS: SUCRALFATE 1 G/10 ML UDC GT SCH (09:31)
[2019-10-18] MEDS: DOCUSATE SODIUM LIQ 100 MG/10 ML UDC GT SCH (09:31)
[2019-10-18 09:32] VITALS: BP 115/55
[2019-10-18] MEDS: CLOTRIMAZOLE 1% 15 GM TUBE TP SCH (09:32)
[2019-10-18] MEDS: NYSTATIN OINT 100000 UNIT/G 15 GM TUBE TP SCH (09:32)
[2019-10-18] MEDS: DILTIAZEM HCL CD 240 MG NG SCH (09:32)
[2019-10-18] MEDS: MINERAL OIL/PETROLATUM,WHITE 120 GM JAR TP SCH (09:32)
[2019-10-18] MEDS: HYDROGEL DRESSING 90 GM TUBE TP SCH (09:32)
[2019-10-18] MEDS: PROSOURCE / PROSTAT (PYXIS) 30 ML UDC GT SCH (09:35)
--- NOTE | 2019-10-18 11:50 | NUR ---
TELE/RN NOTES PATIENT ADMITTED TO [facility] STATUS ROOM 323(1) [facility].
== END 2019-10-18 11:15 | disposition hospice, inpatient (51) | DRG 207 ==
LOC: ER 07:53 → TELE1 11:17 → MED 09-17 16:20 → TELE 09-17 17:32
PROVIDERS: ADMIT Internal Medicine; ATTEND Internal Medicine
PROC: 5A1955Z Respiratory Ventilation, Greater than 96 Consecutive Hours (ICD-10-PCS; principal; 2019-09-15)
PROC: 0JHD3XZ Insertion of Tunneled Vascular Access Device into Right Upper Arm Subcutaneous Tissue and Fascia, Percutaneous Approach (ICD-10-PCS; 2019-10-01)
PROC: B543ZZA Ultrasonography of Right Jugular Veins, Guidance (ICD-10-PCS; 2019-10-01)
PROC: 05HM33Z Insertion of Infusion Device into Right Internal Jugular Vein, Percutaneous Approach (ICD-10-PCS; 2019-10-01)
PROC: 5A1D70Z Performance of Urinary Filtration, Intermittent, Less than 6 Hours Per Day (ICD-10-PCS; 2019-10-06)
DX: J96.21 Acute and chronic respiratory failure with hypoxia (principal); G93.41 Metabolic encephalopathy; N17.0 Acute kidney failure with tubular necrosis; N18.6 End stage renal disease; N39.0 Urinary tract infection, site not specified; I13.2 Hypertensive heart and chronic kidney disease with heart failure and with stage 5 chronic kidney disease, or end stage renal disease; L03.115 Cellulitis of right lower limb; Z99.11 Dependence on respirator [ventilator] status; L03.116 Cellulitis of left lower limb; J98.11 Atelectasis; J44.0 Chronic obstructive pulmonary disease with (acute) lower respiratory infection; E66.2 Morbid (severe) obesity with alveolar hypoventilation; Z68.41 Body mass index [BMI] 40.0-44.9, adult; D68.59 Other primary thrombophilia; J90 Pleural effusion, not elsewhere classified; B15.9 Hepatitis A without hepatic coma; J96.22 Acute and chronic respiratory failure with hypercapnia; I48.91 Unspecified atrial fibrillation; E11.65 Type 2 diabetes mellitus with hyperglycemia; Z93.0 Tracheostomy status; E11.22 Type 2 diabetes mellitus with diabetic chronic kidney disease; Z66 Do not resuscitate; Z99.2 Dependence on renal dialysis; E11.649 Type 2 diabetes mellitus with hypoglycemia without coma; E83.39 Other disorders of phosphorus metabolism; I50.9 Heart failure, unspecified; I70.0 Atherosclerosis of aorta; D63.1 Anemia in chronic kidney disease; R13.10 Dysphagia, unspecified; Y95 Nosocomial condition; I87.8 Other specified disorders of veins; L89.90 Pressure ulcer of unspecified site, unspecified stage; B96.5 Pseudomonas (aeruginosa) (mallei) (pseudomallei) as the cause of diseases classified elsewhere; Z22.322 Carrier or suspected carrier of Methicillin resistant Staphylococcus aureus
CPT/HCPCS: 31720; 36415; 36600; 71045-TC; 76604-TC; 76770-TC; 80048-TC; 80053-TC; 80076-TC; 80202-TC; 81000-TC; 82550-TC; 82728-TC; 82803-TC; 82962-TC; 83605-TC; 83615-TC; 83735-TC; 83880; 83970; 84100-TC; 84155; 84155-TC; 84165; 84484-TC; 85025-TC; 85378-TC; 85610-TC; 85730-TC; 86140-TC; 86705; 86706; 86709; 86709-TC; 86803; 86850-TC; 86921-TC; 87040-TC; 87070-TC; 87075-TC; 87081-TC; 87086-TC; 87186-TC; 87340; 88108-TC; 88305-TC; 88312-TC; 89051-TC; 90935-TC; 93970-TC; 94002-TC; 94003-TC; 94640-TC; 94760-TC; 94762-TC; 99082-TC; A4216; A6248; A6253; A7526; C1750; G0378; J0456; J0690; J0692; J0696; J1644; J1815; J2185; J2248; J2704; J3370; J3490; J7030; J7040; J7060

== ENCOUNTER 2019-10-18 11:23 | Inpatient (IN) | payer OTHER ==
[~2019-10-18 11:23] MED LIST: ACET-868 GT; ALLO100T25 GT; ATOR10TA GT; BISA10SU11 RC; BUDE0.5A IH; DILT-4 GT; DOCU50LI GT; FLUC100T GT; FURO80TA85 GT; GLIP10TA11 GT; INSU100V39 SQ; INSU100V7 SQ; IPRA3AMP23 IH; LACT10SO GT; LEVO88TA5 GT; LORA-259 GT; METO25TA20 GT; MULT-447 GT; NUTR250L58 GT; NYST15OI TP; ONDA4TAB5 GT; PANT40SU2 GT; QUET200T GT; SUCR1ORA15 GT; TAMS-12 GT; TIOT18CA3 IH
--- NOTE | 2019-10-18 13:08 | NUR ---
RT PER MD ORDER, PT TAKEN OFF VENTILATOR AND PLACED PT ON AERO MASK 5L.
[2019-10-18] MEDS: MORPHINE SULFATE INJ 2 MG/ML DISP.SYRIN IV PRN ×3 (15:13→23:31)
[2019-10-18 16:00] VITALS: BP 105/45
[2019-10-18] MEDS: LORAZEPAM INJ 2 MG/ML VIAL IVP PRN ×2 (16:34→21:20)
--- NOTE | 2019-10-18 19:14 | NUR ---
TELE/RN NOTES PATIENT ADMITTED TO [facility] STATUS, ROOM 323 [facility]. PATIENT IS FOR COMFORT MEASURE PER MD ORDER AND WITH CONSENT BY THE FAMILY. WILL ENDORSED TO PLANT WRAPPER FOR CONTINUE COMFORT.
--- NOTE | 2019-10-18 19:49 | NUR ---
RN NOTES MORPHINE 1 MG GIVEN PRN FOR SEVERE PAIN WITH FACIAL GRIMACING, REPOSITIONED FOR COMFORT. WILL CONTINUE TO MONITOR.
--- NOTE | 2019-10-18 19:55 | NUR ---
RN OPENING NOTES RECEIVED PATIENT IN BED, EYES SLIGHTLY OPEN. NOTED WITH SLOW SHALLOW BREATHING 14/MIN ON 5LPM VIA TRACH COLLAR MASK. TELE MONITOR READS AFIB 91. FC INTACT AND PATENT DRAINING TO A YELLOW URINE OUTPUT. IV ON L FA 20G, RIGHT HD CATH, CLEAN DRY PATENT AND INTACT. SAFETY PRECAUTIONS IN PLACE. BED IN LOWEST POSITION, LOCKED, AND CALL LIGHT KEPT WITHIN REACH.ASPIRATION PRECAUTION EMPHASIZED. SUCTIONED ORAL SECRETIONS. PATIENT IS ON COMFORT CARE. WILL CONTINUE TO MONITOR ACCORDINGLY.
[2019-10-18 20:00] VITALS: BP 136/49
[2019-10-18 20:30] VITALS: BP 136/49
--- NOTE | 2019-10-18 21:20 | NUR ---
RN NOTES ATIVAN 1 MG GIVEN PRN PER MD ORDER. ALL NEEDS ANTICIPATED. REPOSITIONED FOR COMFORT. WILL MONITOR CONTINUOUSLY.
--- NOTE | 2019-10-18 23:31 | NUR ---
RN NOTES MORPHINE 1 MG IV GIVEN PRN ORDER. PATIENT IS ON COMFORT MEASURES. REPOSITIONED, KEEP CLEAN AND DRY. WILL MONITOR ACCORDINGLY.
[2019-10-19] VITALS: BP 98/45
[2019-10-19 00:20] VITALS: BP 98/45
[2019-10-19] MEDS: MORPHINE SULFATE INJ 2 MG/ML DISP.SYRIN IV PRN ×2 (01:25→03:15)
--- NOTE | 2019-10-19 01:25 | NUR ---
RN NOTES MORPHINE I MG IV GIVEN PER MD ORDERED,WITH FACIAL GRIMACING, BP 98/45; HR 68 - 70/MIN; RR14; TEMP 97.5; SATING 86%. REPOSITIONED FOR COMFORT. WILL MONITOR ACCORDINGLY.
[2019-10-19] MEDS: LORAZEPAM INJ 2 MG/ML VIAL IVP PRN (02:28)
--- NOTE | 2019-10-19 02:28 | NUR ---
RN NOTES ATIVAN 1 MG IV GIVEN PRN ORDERED. REPOSITIONED FOR COMFORT, SATING 85% HR 57 - 59/MIN AT THIS TIME. WILL CONTINUE TO MONITOR.
--- NOTE | 2019-10-19 03:15 | NUR ---
RN NOTES MORPHINE 1 MG IV GIVE PER MD ORDER FOR SEVERE PAIN, REPOSITIONED FOR COMFORT, KEEP CLEAN WARM, DRY AND COMFORTABLE.
--- NOTE | 2019-10-19 05:30 | NUR ---
HORSE STUD WORKER AND TIME OF PATIENT ON COMFORT MEASURES, NOTED WITH DECREASING RESPIRATION AND WITH LAST BREATH TAKEN, PATIENT UNRESPONSIVE, NO RESPIRATION, NO HEART BEAT, NO PULSE UPON PALPATION, NO BREATH SOUNDS UPON AUSCULTATION. PATIENT DNR / DNI. PATIENTS' VITAL SIGNS UN APPRECIATED AT 0430, REPOSITIONED FOR COMFORT, CHECKED AND ASSESSED FOR RESPONSIVENESS, TELE MONITOR READS ASYSTOLE, NO HEART RHYTHM, NOTED. PATIENT AT 0448 10/19/19. PRONOUNCED BY 2 RNs ( EMMA LEWIS RN AND MELY MATHUR RN ) CHARGE NURSE AWARE. INFORMED SUPERVISOR MICROWAVE HOSPITALIST ANNE MARIE PETER NP. CALLED [facility] ( ) . NURSING PROGRAM EVALUATION CONSULTANT JOSEPHINE BODWEN MADE AWARE. GEORGE OF ADMITTING DEPARTMENT NOTIFIED AND NAME OF PATIENT. CALLED AND SPOKE TO HOSPICE NURSE JOSEPHINE MARQUEZ OF [facility] [phone], PER ALMA, SHE WILL CALL AND INFORM THE FAMILY. POST MORTEM CARE DONE. BELONGINGS CHECKED OFF, NO BELONGINGS NOTED.DAILEY CATHETER REMOVED. RIGHT CHEST WALL CATHETER REMOVED, PERIPHERAL IV LINES REMOVED. ALL NEEDS ATTENDED.
--- NOTE | 2019-10-19 06:40 | NUR ---
RN NOTES PATIENTS' BODY PICKED UP BY 2 SECURITY GUARDS. LEFT THE UNIT AND PLACED INSIDE THE OVERFLOW MORGUE. CHARGE NURSE JOSEPHINE MAYORGA IS AWARE. NURSING SUPERVISOR PLASTERING JOSEPHINE BOWDEN INFORMED.
== END 2019-10-19 06:11 | disposition expired | DRG 189 ==
LOC: HOSPICE 11:23
PROVIDERS: ADMIT Internal Medicine; ATTEND Internal Medicine
DX: J96.20 Acute and chronic respiratory failure, unspecified whether with hypoxia or hypercapnia (principal); Z51.5 Encounter for palliative care; Z66 Do not resuscitate; E11.22 Type 2 diabetes mellitus with diabetic chronic kidney disease; I12.9 Hypertensive chronic kidney disease with stage 1 through stage 4 chronic kidney disease, or unspecified chronic kidney disease; N18.9 Chronic kidney disease, unspecified; D63.8 Anemia in other chronic diseases classified elsewhere; Z93.0 Tracheostomy status; Z93.1 Gastrostomy status; R13.10 Dysphagia, unspecified
CPT/HCPCS: G0378; J2060; J2270